=== PATIENT | female | born 1960 | race Caucasian/White ===

== ENCOUNTER 2020-01-17 12:54 | Emergency (ER) | payer MEDICARE, SELFPAY ==
--- NOTE | ~2020-01-17 | CT_ITS ---
EXAMINATION: CT abdomen pelvis w con DATE: 01/17/2020 15:45 INDICATION: Abdominal pain TECHNIQUE: Computed tomography (CT) of the abdomen and pelvis was performed with 100 mL Omnipaque-350 intravenous contrast. Automated exposure control and iterative reconstruction technique were employe d. The dose-length product was 1581.05 mGy-cm. COMPARISON: None FINDINGS: Discoid atelectasis at the bilateral lung bases. Borderline heart size. Atherosclerotic coronary dillon ry calcification. Ossified left hilar lymph nodes consistent with old granulomatous disease. Cholecys tectomy clips at the gallbladder fossa. Liver, spleen, pancreas, left adrenal gland and left kidney a re normal. There are couple small right adrenal nodules the larger measuring 2.0 cm macroscopic fat a ttenuation consistent with a myelolipoma. The smaller 1.7 cm nodule demonstrates soft tissue density statistically most likely to represent an adenoma. 7 mm macroscopic fat attenuation lesion at the rig ht kidney consistent with an angiomyolipoma. No evident urolithiasis. Bowels including the appendix a re normal. Small amount of gas within the vaginal vault as well as within the lower uterine segment. Additional small amount of gas within the otherwise normal bladder. No free intraperitoneal gas or fl uid. No pathologically enlarged abdominal or pelvic lymphadenopathy. Hypoplastic left-sided L1 riblet . Nondisplaced lateral left ninth rib fracture. There are few additional more chronic healed or heali ng bilateral anterior lower rib fractures. There are bridging osteophytes at multiple levels in the s pine, consistent with diffuse idiopathic skeletal hyperostosis (DISH). IMPRESSION: 1. Acute nondisplaced lateral left ninth rib fracture. 2. 2.0 cm and 1.7 cm right adrenal nodules the larger with macroscopic fat attenuation consistent wit h myelolipoma the second indeterminate but statistically most likely to represent an adenoma. 3. 6 mm right renal angiomyolipoma. Otherwise normal kidneys with no urolithiasis. 4. Small amount of gas in the bladder, vaginal vault and lower uterine segment. Correlate clinically for history of recent pelvic exam or sexual activity and for either Lemons catheterization or instrume ntation of the bladder. Reviewed, dictated and finalized at location A. SCALE WORKER IMPRESSION: 1. Acute nondisplaced lateral left ninth rib fracture. 2. 2.0 cm and 1.7 cm right adrenal nodules the larger with macroscopic fat atte nuation consistent with myelolipoma the second indeterminate but statistically most likely to represent an adenoma. 3. 6 mm right renal angiomyolipoma. Otherwise normal kidneys with no urolithias is. 4. Small amount of gas in the bladder, vaginal vault and lower uterine segment. Correlate clinically for history of recent pelvic exam or sexual activity and for either Lemons catheterization or instrumentation of the bladder.
--- NOTE | ~2020-01-17 | XR_ITS ---
EXAMINATION: [id number]_[id number] DATE: 01/17/2020 14:06 INDICATION: Left lower rib pain post fall TECHNIQUE: A frontal inspiratory view of the chest and 3 views of the left ribs were obtained. COMPARISON: None FINDINGS: There is an irregular contour to the anterior most aspect of the left 10th rib end of the lateral asp ect of the calcified costochondral cartilage of the eighth and ninth ribs. No definitive lucent fract ure line or sharply angulated cortex to more specifically suggest acute fracture. Remaining ribs are unremarkable. Linear discoid atelectasis/scarring at the bilateral lung bases. No pleural effusion or pneumothorax. Cardiomediastinal silhouette is normal. Cholecystectomy clips in right upper quadrant. Mild thoracic and mild to moderate upper lumbar spondylosis. IMPRESSION: 1. Irregular contour to the anterior left 10th rib end of the costochondral cartilage near the tips o f the anterior left eighth and ninth ribs. This could be either developmental or sequela of trauma ei ther acute or chronic. 2. Linear discoid atelectasis/scarring at the bilateral lung bases. No other acute cardiopulmonary di sease. Reviewed, dictated and finalized at location A. R CARRIER IMPRESSION: 1. Irregular contour to the anterior left 10th rib end of the costochondral car tilage near the tips of the anterior left eighth and ninth ribs. This could be either developmental or sequela of trauma either acute or chronic. 2. Linear discoid atelectasis/scarring at the bilateral lung bases. No other ac [place] cardiopulmonary disease.
--- NOTE | ~2020-01-17 | XR_ITS ---
EXAMINATION: XR wrist LT min 3V DATE: 01/17/2020 14:06 INDICATION: Left wrist injury. TECHNIQUE: 4 views of left wrist were obtained. COMPARISON: None. FINDINGS: Bone alignment is normal. There is an avulsion fracture of dorsal pole of triquetrum. There is mild osteoarthritis of triscaphe joint and first carpometacarpal joint. IMPRESSION: 1. Avulsion fracture of dorsal pole of triquetrum. 2. Polyarticular osteoarthritis. Reviewed, dictated and finalized at location B. E MASTER
[2020-01-17 12:57] VITALS: BP 150/77; PULSE 99; RESP 18; TEMP 36.2; O2SAT 93
--- NOTE | 2020-01-17 13:25 | ED.FALL ---
HPI - Fall General Chief Complaint: Fall Stated Complaint: fell on friday, arm and rib pain Time Seen by Provider: 01/17/20 13:04 Source: RN notes reviewed History of Present Illness HPI Narrative: Patient presents emergency department from home for a fall. Patient states she fell 2 days ago. She states that her foot had gotten tripped up and she fell landing on her left wrist and on her left side. She notes pain in her left ribs as well as her left wrist. She states she began to notice some blood in her urine yesterday that she says is bright red in color. She denies having fevers or chills shortness of breath abdominal pain nausea vomiting or any other symptoms denies being on any blood thinners. States her pain is in her left lateral wrist as well as her left anterior lateral chest she denies any bruising on her chest or abdomen denies any other injuries from the fall or striking her head Related Data Allergies Allergy/AdvReac Type Severity Reaction Status Date / Time No Known Allergies Allergy Verified 01/17/20 12:59 Review of Systems Review of Systems: Narrative: Gen.: Denies fevers or chills ENT: Denies congestion Respiratory: Denies shortness of breath or cough CV: Denies chest pain or palpitations GI: Denies abdominal pain nausea, emesis or diarrhea reports hematuria Musculoskeletal: See HPI Neuro: Denies numbness, tingling, weakness or focal weakness Skin: Denies rash Except as documented, all other systems reviewed and negative [facility] Past Medical History Medical History (Updated 01/17/20 @ 18:25 by Escobar Francisco DO) Diabetes mellitus Hypertension Social History Social History (Updated 01/17/20 @ 13:27 by Escobar Francisco DO) Smoking status: Never smoker Exam Narrative: Exam Narrative: APPEARANCE: No acute distress, nontoxic, resting in bed EYES: EOMI HEENT: Normocephalic, atraumatic, OMM RESPIRATORY: No respiratory distress Clear to auscultation bilaterally with no rhonchi wheezing or rales. CARDIOVASCULAR: Regular rate and rhythm without murmurs rubs or gallops. Chest: Tender palpation of the left anterior lateral chest wall in the regions of ribs 8 through 10, pain increased with deep inspiration no ecchymosis seen ABDOMINAL: Soft, nontender, nondistended, no rebound or guarding no flank tenderness MUSCULOSKELETAl: Moves all extremities. No clubbing, cyanosis or edema. Tender palpation of the left lateral wrist with swelling present pain with flexion extension of the wrist, no tenderness of the elbow or shoulder radial pulse 2+ neurovascular intact NEURO: Awake and alert. Following commands, speech normal, no focal deficits SKIN:: Warm, dry. No rashes lesions or abrasions PSYCHIATRIC: Normal affect/mood, Course Course Emergency Course: Discussed with patient following CT scan denies any recent catheterization or recent sexual activity Called discussed Dr. Mckinley presentation work-up discussed CT results. At this time recommends treating patient for UTI with follow-up as an outpatient Discussed with Dr. Martinez presentation work-up. Request patient placed in volar splint will follow as outpatient Discussed with patient results of workup and diagnosis. Discussed need for follow-up with primary care, proper use of medication, and reasons to return to the emergency department. Patient understands and agrees to current treatment plan Vital Signs Vital signs: Vital Signs Temperature 97.1 F L 01/17/20 12:57 Pulse Rate 99 01/17/20 12:57 Respiratory Rate 18 01/17/20 12:57 Blood Pressure 150/77 H 01/17/20 12:57 Pulse Oximetry 93 01/17/20 12:57 Temperature 97.1 F L 01/17/20 12:57 Pulse Rate 99 01/17/20 12:57 Respiratory Rate 18 01/17/20 12:57 Blood Pressure 150/77 H 01/17/20 12:57 Pulse Oximetry 93 01/17/20 12:57 Procedures Orthopedic Splinting/Casting Injury #1: Side: left Upper Extremity Immobilizer: volar splint Splint: customized i
[2020-01-17 13:50] LABS: Basophils Percent Auto 0.3 % (0.2-1.2); Eosinophils Absolute Auto 0.6 K/mm3 (0-0.3); Hematocrit 36.1 % (37.0-47.0); Immature Granulocyte Absolute 0.04 K/mm3 (0.00-0.031); Immature Granulocyte Percent A 0.5 % (0-0.5); Lymphocytes Absolute Auto 1.35 K/mm3 (0.9-3.2); Lymphocytes Percent Auto 15.7 % (18.3-44.2); Mean Corpuscular HGB Conc 30.5 g/dl (32-36); Mean Corpuscular Hemoglobin 30.1 pg (26-34); Mean Corpuscular Volume 98.6 fl (80-100); Mean Platelet Volume 12.3 fl (7.4-10.4); Monocytes Absolute Auto 0.9 K/mm3 (0.1-0.6); Monocytes Percent Auto 10.5 % (2.6-8.5); Neutrophils Absolute Auto 5.7 K/mm3 (1.3-6.7); Platelet Count Result 262 k/mm3 (150-375); Red Blood Count 3.66 M/mm3 (4.2-5.4); White Blood Count 8.6 K/mm3 (4.5-10.0)
[2020-01-17 13:59] LABS: Partial Thromboplastin Time 25.7 SECONDS (22.3-36.8); Prothrombin Time 13.6 Seconds (11.1-14.7)
[2020-01-17 14:02] LABS: Alanine Aminotransferase 20 U/L (4-35); Albumin Level 3.9 g/dL (3.5-5.1); Alkaline Phosphatase 73 U/L (38-126); Anion Gap 7 mmol/L (8-16); Aspartate Amino Transferase 20 U/L (14-36); Bilirubin,Total 0.3 mg/dL (0.2-1.3); Blood Urea Nitrogen 23 mg/dL (7-17); Calcium 9.4 mg/dL (8.4-10.2); Carbon Dioxide 31 mmol/L (22-30); Chloride 109 mmol/L (98-107); Estimated CRCL calculation 72 ml/min; Estimated Glomerular Filt Rate 51; Glucose 142 mg/dL (65-105); Potassium 4.2 mmol/L (3.4-5.0); Sodium 147 mmol/L (137-145)
[2020-01-17 14:28] LABS: Add Urine Microscopic? YES; Appearance Urine Cloudy (Clear); Bilirubin Urine Negative (Negative); Blood Urine 3+ (Negative); Color Urine Red (Yellow); Glucose Urine UA Negative (Negative); Ketones Urine Negative (Negative); Leukocyte Esterase Ur 2+ LEU/UL (Negative); Nitrate Urine Negative (Negative); Protein Urine 2+ mg/dL (Negative); RBC Urine >75 /hpf (0-2); Specific Grav Ur 1.018 (1.001-1.035); Squamous Epithelial Cell Urine Occasional /hpf (Few); Urobilinogen Urine Negative mg/dL (<2.0); WBC Urine >75 /hpf
[2020-01-17] MEDS: SODIUM CHLORIDE 0.9% IV 1,000 ML 999 ML IV CONT (15:28)
== END 2020-01-17 18:43 | disposition home or self-care (01) ==
PROVIDERS: Emergency Provider Emergency Medicine; PCP Internal Medicine
DX: S22.32XA Fracture of one rib, left side, initial encounter for closed fracture (principal); S62.112A Displaced fracture of triquetrum [cuneiform] bone, left wrist, initial encounter for closed fracture; N39.0 Urinary tract infection, site not specified; W01.0XXA Fall on same level from slipping, tripping and stumbling without subsequent striking against object, initial encounter
CPT/HCPCS: 29125; 36415; 71101; 73110; 74177; 80053; 81001; 85025; 85610; 85730; 87077; 87086; 87088; 87186; 96361; 96374; 99284; J0696; J7030; Q9967

== ENCOUNTER 2022-08-12 01:29 | Day surgery (SDC) | payer MEDICARE, SELFPAY ==
[2022-07-29 13:11] VITALS: BMI 49.8
[2022-08-12 06:27] VITALS: BP 152/78; PULSE 85; RESP 18; TEMP 36.4; O2SAT 96
[2022-08-12] MEDS: LACTATED RINGERS 1,000 ML 150 ML IV CONT (06:37)
--- NOTE | 2022-08-12 06:57 | PM.HPGS ---
History of Present Illness History of Present Illness Consent: Risks, benefits, and alternatives have been discussed and questions answered. Patient agrees to proceed with procedure. Chief complaint: neoplasm screening Narrative: Pankaj Keith is a 61 year old female Referred for colon cancer screening. Review of Systems Review of Systems: All systems reviewed & are unremarkable except as noted in HPI and below PMFSH Past Medical History Medical History BMI 50.0-59.9, adult Diabetes mellitus Fracture of left carpal bone Dorsal triquetrum avulsion fracture Gout Heart disease Hypertension Kidney disease Surgical History Surgical History H/O: section History of cholecystectomy Family History Family History Other Diabetes mellitus Heart disease Hypertension Social History Social History Smoking packs per day: 0.25 Smoking cigarettes per day: 5.0 Years smoked: 20 Smoking pack-years: 5.00 Smoking status: Former smoker Tobacco type: cigarettes Alcohol intake: never Alcohol use details: occasional Substance use: never Substance use type: does not use Living arrangements: with family Additional living arrangements comments: daughter lives with her Occupation/Education: retired Gender identity (if verbalized by the patient): Female Spiritual care concerns: No Meds Home Medications and Allergies Home Medications Medication Instructions Recorded Confirmed Type allopurinol 100 mg tablet 100 mg PO DAILY 01/27/20 07/29/22 History ascorbate calcium-bioflavonoid 1 tablet PO DAILY 01/27/20 07/29/22 History 1,000 mg-200 mg tablet aspirin 81 mg tablet,delayed 81 mg PO DAILY 01/27/20 07/29/22 History release (Adult Aspirin Regimen) citalopram 10 mg tablet 10 mg PO DAILY 01/27/20 07/29/22 History ferrous sulfate 325 mg (65 mg 325 mg PO DAILY 01/27/20 07/29/22 History iron) tablet,delayed release glipizide 10 mg tablet 10 mg PO DAILY 01/27/20 07/29/22 History insulin lispro 100 unit/mL 12 unit subcut TID 01/27/20 07/29/22 History subcutaneous cartridge (Humalog U-100 Insulin) metformin 500 mg tablet 500 mg PO DAILY 01/27/20 07/29/22 History olmesartan 20 mg tablet 20 mg PO DAILY 01/27/20 07/29/22 History pantoprazole 20 mg tablet,delayed 20 mg PO QAM 01/27/20 07/29/22 History release simvastatin 40 mg tablet 40 mg PO DAILY 01/27/20 07/29/22 History solifenacin 5 mg tablet 5 mg PO DAILY 01/27/20 07/29/22 History cholecalciferol (vitamin D3) 1,250 50,000 unit PO WEEKLY 07/29/22 07/29/22 History mcg (50,000 unit) capsule insulin glargine 100 unit/mL 85 unit subcut HS 07/29/22 07/29/22 History subcutaneous solution (Lantus U-100 Insulin) semaglutide 1 mg/dose (4 mg/3 mL) 1 mg subcut WEEKLY 07/29/22 07/29/22 History subcutaneous pen injector (Ozempic) Allergies Allergy/AdvReac Type Severity Reaction Status Date / Time No Known Allergies Allergy Verified 08/12/22 06:25 Vital Signs Vital Signs - 24 hr 08/12/22 06:27 Temperature 36.4 C Pulse Rate 85 Respiratory Rate 18 Blood Pressure 152/78 H Pulse Oximetry 96 Oxygen Delivery Room Air Exam Const: General: alert Orientation/consciousness: patient oriented x3 Resp: Auscultation: clear to auscultation bilaterally Cardio: Rhythm: regular rhythm GI: GI Palp: Yes Soft to palpation and No Tenderness to palpation present (GI) Neuro: General: patient oriented x3 Assessment and Plan Assessment and plan (1) Colon cancer screening: Code(s): Z12.11 - Encounter for screening for malignant neoplasm of colon Status: Acute Assessment and Plan: Colonoscopy with possible biopsy or polypectomy or cautery or injection of substances.
--- NOTE | 2022-08-12 07:01 | WPDANESEPPF ---
Anes - Initial Pre Proc Eval Procedure: Operation Date: 08/12/22 07:30 Proposed Procedures p Screening Colonoscopy - Marquez Talamantes MD Date/Time: 08/12/22 07:01 Surgeon: Marquez Talamantes MD Pre Op Diagnosis: neoplasm screening Patient Data Age: 61 Gender: F Height: 1.65 m Weight: 132.7 kg Last Vital Signs Temp 36.4 C 08/12/22 06:27 Pulse 85 08/12/22 06:27 Resp 18 08/12/22 06:27 BP 152/78 H 08/12/22 06:27 Pulse Ox 96 08/12/22 06:27 O2 Del Method Room Air 08/12/22 06:27 Allergies Allergy/AdvReac Type Severity Reaction Status Date / Time No Known Allergies Allergy Verified 08/12/22 06:25 Home Medications Medication Instructions Recorded Confirmed Type allopurinol 100 mg tablet 100 mg PO DAILY 01/27/20 07/29/22 History ascorbate calcium-bioflavonoid 1 tablet PO DAILY 01/27/20 07/29/22 History 1,000 mg-200 mg tablet aspirin 81 mg tablet,delayed 81 mg PO DAILY 01/27/20 07/29/22 History release (Adult Aspirin Regimen) citalopram 10 mg tablet 10 mg PO DAILY 01/27/20 07/29/22 History ferrous sulfate 325 mg (65 mg 325 mg PO DAILY 01/27/20 07/29/22 History iron) tablet,delayed release glipizide 10 mg tablet 10 mg PO DAILY 01/27/20 07/29/22 History insulin lispro 100 unit/mL 12 unit subcut TID 01/27/20 07/29/22 History subcutaneous cartridge (Humalog U-100 Insulin) metformin 500 mg tablet 500 mg PO DAILY 01/27/20 07/29/22 History olmesartan 20 mg tablet 20 mg PO DAILY 01/27/20 07/29/22 History pantoprazole 20 mg tablet,delayed 20 mg PO QAM 01/27/20 07/29/22 History release simvastatin 40 mg tablet 40 mg PO DAILY 01/27/20 07/29/22 History solifenacin 5 mg tablet 5 mg PO DAILY 01/27/20 07/29/22 History cholecalciferol (vitamin D3) 1,250 50,000 unit PO WEEKLY 07/29/22 07/29/22 History mcg (50,000 unit) capsule insulin glargine 100 unit/mL 85 unit subcut HS 07/29/22 07/29/22 History subcutaneous solution (Lantus U-100 Insulin) semaglutide 1 mg/dose (4 mg/3 mL) 1 mg subcut WEEKLY 07/29/22 07/29/22 History subcutaneous pen injector (Ozempic) Patient hx anesthesia problems: none Family hx anesthesia problems: none Results Review: All pre-operative results and documents have been reviewed as part of the pre-operative evaluation. [facility] Past Medical History Medical History BMI 50.0-59.9, adult Diabetes mellitus Fracture of left carpal bone Dorsal triquetrum avulsion fracture Gout Heart disease Hypertension Kidney disease Surgical History Surgical History H/O: section History of cholecystectomy Family History Family History Other Diabetes mellitus Heart disease Hypertension Social History Social History Smoking packs per day: 0.25 Smoking cigarettes per day: 5.0 Years smoked: 20 Smoking pack-years: 5.00 Smoking status: Former smoker Tobacco type: cigarettes Alcohol intake: never Alcohol use details: occasional Substance use: never Substance use type: does not use Living arrangements: with family Additional living arrangements comments: daughter lives with her Occupation/Education: retired Gender identity (if verbalized by the patient): Female Spiritual care concerns: No Anes - Eval Final PreProcedure Day of Procedure 08/12/22 07:01 Patient weight: morbidly obese Heart: regular rate and rhythm Lungs: clear to auscultation Airway: Mallampati scale class II Neurological: alert and oriented Last oral intake: >/= 8 hours ASA classification: III Emergent: no Anesthetic plan: proceed Anesthesia type and monitoring: general GIVS and standard monitoring Results Review: All pre-operative results and documents have been reviewed as part of the pre-operative evaluation. Inform
[2022-08-12 07:12] LABS: Glucose Point of Care 97 mg/dl (65-105)
[2022-08-12 07:44] VITALS: BP 105/56; PULSE 76; RESP 20; O2SAT 95
[2022-08-12 07:54] VITALS: BP 121/94; PULSE 71; RESP 20; O2SAT 95
[2022-08-12 07:58] LABS: Glucose Point of Care 95 mg/dl (65-105)
[2022-08-12 08:04] VITALS: BP 127/75; PULSE 68; RESP 22; O2SAT 97
== END 2022-08-12 08:25 | disposition home or self-care (01) ==
PROVIDERS: PCP Internal Medicine; Visit Provider Internal Medicine Gastroenterology
PROC: 0DJD8ZZ Inspection of Lower Intestinal Tract, Via Natural or Artificial Opening Endoscopic (ICD-10-PCS; CPT 45378; principal; 2022-08-12 07:30)
DX: Z12.11 Encounter for screening for malignant neoplasm of colon (principal); K57.30 Diverticulosis of large intestine without perforation or abscess without bleeding; E11.9 Type 2 diabetes mellitus without complications; I11.9 Hypertensive heart disease without heart failure; M10.9 Gout, unspecified; Z87.891 Personal history of nicotine dependence; E66.01 Morbid (severe) obesity due to excess calories; Z68.42 Body mass index [BMI] 45.0-49.9, adult; Z79.84 Long term (current) use of oral hypoglycemic drugs; Z79.4 Long term (current) use of insulin; Z79.899 Other long term (current) drug therapy
CPT/HCPCS: G0121; 82948; J2704; J7120

== ENCOUNTER 2024-04-12 09:43 | Outpatient (CLI) | payer MEDICARE, SELFPAY ==
--- NOTE | ~2024-04-12 | DEXA_ITS ---
Bone Density Report Name: KRISTA CUMMINGS Age: 63 Sex: Female Ethnicity: White Date of : 1960 Indication: postmenopausal; screening for osteoporosis; Referring Provider: VALENCIA, OCTAVIA Mcdonnell Study: Bone densitometry was performed. Exam Date: April 12, 2024 Accession number: [id number] Bone Density: Region BMD T-score Z-score Classification AP Spine(L1, L2, L4) 1.181 1.3 3.1 Normal Femoral Neck (Left) 0.734 -1.0 0.4 Normal Total Hip (Left) 0.984 0.3 1.5 Normal Femoral Neck (Right) 0.818 -0.3 1.2 Normal Total Hip (Right) 1.028 0.7 1.9 Normal Femoral Neck Mean 0.776 -0.7 0.8 Normal Total Hip Mean 1.006 0.5 1.7 Normal World Health Organization criteria for BMD impression classify patients as: Normal (T-score at or above -1.0), Osteopenia (T-score between -1.0 and -2.5), or Osteoporosis (T-score at or below -2.5). Clinical Information Provided by Patient: Has used the following medications: Vitamin D, Calcium Patient maximum height was 64 Menopause Age: 49 No regular weight bearing exercise Onset of menses at age 11 Number of children 2 Impression: The patient has normal bone mass. Discussion: BONE DENSITY IS ABOVE THE MINIMUM DESIRABLE LEVEL AT ALL SKELETAL SITES TESTED. This patient?s bone mineral density is above the minimum desirable level (T-score -1.0 or better) at all sites measured. The patient should follow a healthful lifestyle (good nutrition with adequate calcium and vitamin D, and appropriate weight-bearing exercise). Follow-Up: Consider repeating this study in 5 years or sooner if there is some new clinical indication. Reported by: AMOS on 04/12/2024 10:23:00 AM. Reviewed, dictated and finalized at location A.
--- OUTSIDE RECORDS SUMMARY | 2024-04-12 10:22 | XMS_ITS | CONTINUITY OF CARE DOCUMENT ---
Author Name braxton limon Address Unknown Organization [facility] Address [address] [place] [address] Phone [phone] Care Team Providers Care Dock Clerk Name Role Phone Faheem MCCAIN, Tj Unavailable [phone] Edwardo Murillo MD Unavailable Edwardo Murillo MD Unavailable PROBLEMS Condition Status Date Provider Notes DIABETES MELLITUS active Katlyn Wills t ANEMIA active - Lionel Morales MD HYPERCHOLESTEROLEMIA completed - Tj Mayen MD OBESITY active Tj Mayen MD HTN ESSENTIAL--stress nuc fi xed inf lat defect 09/2020, echo ef 62%, LVH, calcified arotic valve, 07/2020 active Tj Mayen MD DIASTOLIC CHF active Lionel Morales MD PANCREATITIS active Lionel Morales MD PICKWICKIAN SYNDROME active Lionel Mendez SLEEP APNEA;ON CPAP active Lionel Morales MD COR PULMONALE;NITE TIME 02, uses CPAP completed - Tj Mayen MD ABNORMAL ELECTROCARDIOGRAM;W ILL NUC STRESS completed - Lionel Morales MD PULMONARY HYPERTENSION, SECONDARY;NOT SEEN 2009 completed - Tj Mayen MD CAD;NML NUC 2009 completed - Tj Mayen MD Hyperlipidemia active Tj Mayen MD Chronic kidney disease stage 3, follows with MABEL Mayen active Tj Light pulmonale, chronic active Tj Mayen MD Cardiovascular screening completed - Tj Mayen MD SOB active Tj Myaen MD Cardiology examination active Leonardo Mora ENCOUNTERS Date Type Provider Location Encounter Diag nosis - In-person encounter Office Visit Tj Mayen MD [facility] Cardiology examination - In-person encounter Office Visit Tj Mayen MD [facility] - In-person encounter Office Visit Tj Mayen MD [facility] - In-person encounter Office Visit Tj Mayen MD [facility] - In-person encounter Office Visit Tj Mayen MD [facility] - In-person encounter Office Visit Tj Mayen MD [facility] HTN ESSENTIAL--stress nuc fixed inf lat defect 09/2020, echo ef 62%, LVH, calcified arotic valve, ardiovascular screening - In-person encounter Office Visit Tj Mayen MD [facility] SOB - In-person encounter Office Visit T[facility] - In-person encounter Office Visit Tj Mayen MD [facility] - In-person encounter Office Visit Tj Mayen MD [facility] - In-person encounter Office Visit Tj Mayen MD [facility] - In-person encounter Office Visit Tj Mayen MD [facility] COR PULMONALE;NITE TIME 02, uses CPAPChronic kidney disease stage 3, follows with MABEL gonzales, chronic - In-person encounter Office Visit Tj Mayen MD [facility] HYPERCHOLESTEROLEMIAHyperlipidemia - In-person encounter Office Visit Tj Mayen MD [facility] OBESITYHTN ESSENTIAL--stress nuc fixed inf lat defect 09/2020, echo ef 62%, LVH, calcified arotic valve, ULMONARY HYPERTENSION, SECONDARY;NOT SEEN 2009CAD;NML NUC 2009 - In-person encounter Office Visit Lionel Morales MD [facility] OBESITYHTN ESSENTIAL--stress nuc fixed inf lat defect 09/2020, echo ef 62%, LVH, calcified arotic valve, IASTOLIC CHFCOR PULMONALE;NITE TIME 02, uses CPAPABNORMAL ELECTROCARDIOGRAM;WILL NUC STRESS - In-person encounter Office Visit Lionel Morales MD [facility] ANEMIAHYPERCHOLESTEROLEMIADIASTOLIC CHFPANCREATITISPICKWICKIAN SYNDROMESLEEP APNEA;ON CPAPCOR PULMONALE;NITE TIME 02, uses CPAPPULMONARY HYPERTENSION, SECONDARY;NOT SEEN 2009 VITAL SIGNS Date Observation Value Provider Body Mass Index (Ratio) 42.60 kg/m2 Dez Mayen MD blood pressure, diastolic 64 mm[Hg] Loretta nkLog blood pressure, systolic 114 mm[Hg] Katherin kLog blood pressure, cuff size large Jose L Adams blood pressure, diastolic 64 mm[Hg] Jose L bitcam Adams blood pressure, systolic 114 mm[Hg] Tab itha Adams pulse rate 97 /min Guadalupe Adams oxygen saturation, oximetry 97 % Guadalupe Bryan weight E&M 256 [lb_av] Guadalupe Adams respiratory rate E&M 12 /min Guadalupe Adams height E&M 65 [in_i] Guadalupe Bryan Body Mass Index (Ratio) 45.26 kg/m2 Dez Mayen MD blood pressure, cuff size regular Fa zane [place] blood pressure, diastolic 75 mm[Hg] Pb degroot [place] blood pressure, systolic 130 mm[Hg] Aaron adamson [place] oxygen saturation, oximetry 97 % Tracy [place] respiratory rate E&M 16 /min Tracy Martinez iller pulse rate 99 /min Tracy [place] weight E&M 272 [lb_av] [facility] height E&M 65 [in_i] [facility] Body Mass Index (Ratio) 49.42 kg/m2 Dez Mayen MD pulse rate 97 /min Kamla Perez blood pressure, diastolic 83 mm[Hg] Annie suyapa Perez blood pressure, systolic 152 mm[Hg] Bri rufus Perez oxygen saturation, oximetry 97 % Kamla Perez weight E&M 297 [lb_av] Kamla Perez blood pressure, cuff size large Annie suyapa Perez height E&M 65 [in_i] Kamla Perez Body Mass Index (Ratio) 53.38 kg/m2 Dez Mayen MD blood pressure, diastolic 71 mm[Hg] St flako Edmondson blood pressure, systolic 183 mm[Hg] Emilia Edmondson oxygen saturation, oximetry 93 % Shira Edmondson pulse rate 87 /min Shirajaney Edmondson respiratory rate E&M 16 /min Shira Mendez santana weight E&M 320.8 [lb_av] Shirajaney Edmondson height E&M 65 [in_i] Shirajaney Edmondson Body Mass Index (Ratio) 53.74 kg/m2 Dez Mayen MD blood pressure, diastolic 74 mm[Hg] Loretta nkLogic blood pressure, systolic 146 mm[Hg] Katherin kLogic blood pressure, diastolic 74 mm[Hg] Sa ra Kendrick blood pressure, systolic 146 mm[Hg] North a Kend[place] oxygen saturation, oximetry 96 % Gali Kend[place] respiratory rate E&M 18 /min Gali Si ms pulse rate 85 /min Gali [place] weight E&M 323 [lb_av] Gali Kendrick blood pressure, cuff size regular Sa ra [place] height E&M 65 [in_i] Gali Kendrick Body Mass Index (Ratio) 53.91 kg/m2 Dez Mayen MD blood pressure, cuff size regular Tr yenifer Lema blood pressure, diastolic 70 mm[Hg] Tr ynett Lema blood pressure, systolic 140 mm[Hg] Try nett Lema oxygen saturation, oximetry 95 % Trynett Lema respiratory rate E&M 18 /min Trynett Lema pulse rate 105 /min Trynett Lema weight E&M 324 [lb_av] Trynett Lema height E&M 65 [in_i] Trynett Lema Body Mass Index (Ratio) 54.74 kg/m2 Dez Mayen MD blood pressure, diastolic 80 mm[Hg] Loretta nkLogic blood pressure, systolic 140 mm[Hg] Katherin kLogic blood pressure, diastolic 80 mm[Hg] erkeitha Sixto blood pressure, systolic 140 mm[Hg] She eitcam [place] oxygen saturation, oximetry 95 % Shergina Sixto respiratory rate E&M 18 /min Madie brandi Henson pulse rate 84 /min Shergina Tom patel weight E&M 329 [lb_av] Shergina Craw patel height E&M 65 [in_i] Shermaggieitha Craw patel Body Mass Index (Ratio) 56.41 kg/m2 Dez Mayen MD blood pressure, diastolic 70 mm[Hg] Solitario Germain blood pressure, systolic 140 mm[Hg] Dylan Germain pulse rate 83 /min Olinda Zuniga oxygen saturation, oximetry 97 % Olinda Zuniga respiratory rate E&M 20 /min Olinda Marcellus blood pressure, cuff size regular Solitario Zuniga weight E&M 339 [lb_av] Olinda height E&M 65 [in_i] [facility] Body Mass Index (Ratio) 52.98 kg/m2 Dez Mayen MD blood pressure, diastolic 70 mm[Hg] [facility] blood pressure, systolic 132 mm[Hg] Flako jiménez [place] oxygen saturation, oximetry 93 % [facility] respiratory rate E&M 16 /min [facility] pulse rate 75 /[facility] [lb_av] [facility] 65 [in_i] [facility] Body Mass Index (Ratio) 53.74 kg/m2 Dez Mayen MD blood pressure, resting Yes Gillian Guan blood pressure, diastolic 77 mm[Hg] Ean Guan blood pressure, systolic 145 mm[Hg] Adina Guan oxygen saturation, oximetry 93 % Abhinav Guan respiratory rate E&M 20 /min Dave Guan pulse rate 72 /min Abhinav portillo weight E&M 323.0 [lb_av] Abhinav nevarez height E&M 65 [in_i] Abhinav portillo Body Mass Index (Ratio) 52.58 kg/m2 Dez Mayen MD blood pressure, cuff size large Ke rrzenobia Manriqueemiholleyfransisco blood pressure, diastolic 80 mm[Hg] Ke rri Osmanholleyfransisco blood pressure, systolic 130 mm[Hg] Samira Palaciosvanessaholleyfransisco oxygen saturation, oximetry 93 % Albertina Palaciosruthamparofransisco respiratory rate E&M 18 /min Albertina Moe santy pulse rate 84 /min Albertina Brewerholleypreston pilloer weight E&M 316 [lb_av] Albertina Brewerholleypreston pilloer height E&M 65 [in_i] Albertina Galindo ferro blood pressure, diastolic 58 mm[Hg] Ean Guan blood pressure, systolic 113 mm[Hg] Adina Guan pulse rate 72 /min Abhinav portillo oxygen saturation, oximetry 97 % Abhinav Guan respiratory rate E&M 18 /min Dave Guan Body Mass Index (Ratio) 54.58 kg/m2 ManjulaGloria Guan weight E&M 328 [lb_av] Abhinav Macedo bandar blood pressure, diastolic 72 mm[Hg] Omero Whalen blood pressure, systolic 126 mm[Hg] Darinel Whalen pulse rate 78 /min Callie Whalen oxygen saturation, oximetry 97 % Callie Whalen respiratory rate E&M 18 /min Chin Whalen weight E&M 358 [lb_av] Callie Whalen blood pressure, diastolic 74 mm[Hg] Kelin dasia [place] blood pressure, systolic 122 mm[Hg] Curtis woo [place] pulse rate 91 /min Venkata [place] oxygen saturation, oximetry 94 % Venkata [place] respiratory rate E&M 20 /min Venkata Mcgillerasmo weight E&M 339 [lb_av] [facility] height E&M 65 [in_i] Venkata Mcgillerasmo ALLERGIES No Known Drug Allergies HISTORY OF MEDICATION USE Medication Status Instructions Dates Provider Indications Com ments losartan 50 mg tablet active TAKE 1 TABLET BY MOUTH EVERY DAY Leonardo Huntleyzazenobia Ozempic 2 mg/dose (8 mg/3 mL) pen injector active Leonardo Huntleyzazenobia Ozempic 1 mg/dose (4 mg/3 mL) pen injector completed INJECT 1 MG SUBCUTAINOUSLY EVERY 7 DAYS - Leonardo Matthewzenobia glipizide 10 mg tablet extended release 24hr completed TAKE 1 TABLET BY MOUTH ONCE DAILY - Leonardo Johnlong TRUEplus Insulin 1 mL 31 gauge x 5/16 syringe active Leonardo Mora losartan 50 mg tablet completed - Leonardo Johnlong oxybutynin chloride 10 mg tablet extended release 24hr active Leonardo Matthewzenobia citalopram 10 mg tablet active Take 1 tablet by mouth once daily Albertina Stiles Farxiga 10 mg tablet active 1 once a day Vern Henson BYDUREON 2 MG SUBCUTANEOUS SUSPENSION RECONSTITUTED ER completed Take once a week - Leonardo Johnlong calcitriol 0.25 mcg capsule active Take 1 once a day Albertina Stiles allopurinol 100 mg tablet active Take 1 once a day Albertina Stiles citalopram 10 mg tablet completed once daily - Abhinav Guan pantoprazole 20 mg tablet,delayed release (DR/EC) active once a day Abhinav Guan CALCIUM TABLET completed 1000 mg once a day - Leonardo Mora ASPIRIN 81 MG ORAL TABLET active 1 tablet once a day Abhinav Guan PROVENTIL HFA AEROSOL SOLUTION completed 2 puffs by mouth three times daily - Lionel Morales MD ADVAIR DISKUS 250-50 MCG/DOSE INHALATION AEROSOL POWDER BREATH ACTIVATED completed twice daily - Olinda Germain ALBUTEROL SULFATE (2.5 MG/3ML) 0.083% INHALATION NEBULIZATION SOLUTION completed every 4 hours - Lionel Morales MD IPRATROPIUM BROMIDE SOLUTION completed every 4 hours - Lionel Morales MD LANTUS SOLUTION active 60 unit every night Leonardo Mora HUMALOG SOLUTION active 1 once a day Olinda Germain RANITIDINE HCL 300 MG ORAL TABLET completed 1 tablet by mouth twice daily - Albertina Stiles FUROSEMIDE 40 MG ORAL TABLET completed 1/2 pill a day - Tj Mayen MD STARLIX 120 MG ORAL TABLET completed 1 tablet by mouth three times daily - Abhinav Guan B-12 TABS completed 1000mg 1tablet by mouth twice daily - Linda Sy Zocor 40 mg tablet active 1 tablet every night Alisia Lema METFORMIN HCL 500 MG ORAL TABLET completed 2 tablets by mouth in the morning and 3 tablet in the eveing - Albertina Stiles glipizide 10 mg tablet completed 1 tablet by mouth once a day - Leonardo Mora FERROUS SULFATE TABLET completed - Venkata Manerasmo Benicar 20 mg tablet completed 1 tablet once a day - Tj Mayen MD SOCIAL HISTORY Date Observation Value Provider alcohol use no Leonardo Mora cigarette use yes Leonardo Mora smoking status Former smoker Leonardo Castro i smoking status Former smoker Tracy Adams social history reviewed E&M revi ewed - no changes required Leonardo Mora physical exercise, f requency, days per week no Kamla Perez caffeine use, averag e drinks per day yes Kamla Perez cigarette use yes Kamla Perez smoking status Former smoker Kamla beckford social history reviewed E&M revi ewed - no changes required Leonardo Mora social history E&M Marital Statu s: L isaias with family/friends E thnicity: Smoking History: P cindi is a former smoker. Leonardo Mora physical exercise, f requency, days per week no Shira Delvis caffeine use, averag e drinks per day yes Shirajaney Edmondson cigarette use yes Shirajaney Edmondson smoking status Former smoker Shira Delvis social history reviewed E&M revi ewed - no changes required Leonardo Mora social history reviewed E&M revi ewed - no changes required Tj Mayen MD cigarette use yes Alisia Espinosamahnaz s smoking status Former smoker Alisia Espinosakingsley rds social history reviewed E&M revi ewed - no changes required Leonardo Mora social history reviewed E&M revi ewed - no changes required Leonadro Mora physical exercise, f requency, days per week no Vern Henson caffeine use, averag e drinks per day yes Vern Henson cigarette use yes Robmaggieeddie davis smoking status Former smoker Vern Marleen suggs social history E&M Marital Statu s: L isaias with family/friends E thnicity: Smoking History: Luiz puente is a former smoker. Tj Mayen MD physical exercise, f requency, days per week no Tj Mayen MD caffeine use, averag e drinks per day yes Tj Mayen MD cigarette use yes Tj Mendez smoking status Former smoker Tj Mayen MD social history reviewed E&M revi ewed - no changes required Tj Mayen MD social history reviewed E&M revi ewed - no changes required Tj Mayen MD social history E&M Marital Statu s: L isaias with family/friends E thnicity: Smoking History: P cindi is a former smoker. Tj Mayen MD physical exercise, f requency, days per week no Olinda Marcellus alcohol use, average drinks per day none Olinda Marcellus alcohol use no Olinda [place] caffeine use, averag e drinks per day yes Olinda Marcellus cigarette use yes Olinda Marcellus smoking status Former smoker Olinda Marcellus social history reviewed E&M revi ewed - no changes required Tj Mayen MD social history E&M Marital Statu s: L isaias with family/friends E thnicity: Smoking History: Luiz puente is a former smoker. Tj Mayen MD number of grandchildren Tj Mayen MD [facility] smoking status Former [facility]oker [facility] physical exercise, f requency, days per week no Linda Sy alcohol use, average drinks per day none [place] Sy alcohol use no [place] Sy caffeine use, averag e drinks per day yes Linda Sy cigarette use yes [place] Sy social history reviewed E&M revi ewed - no changes required Tj Mayen MD physical exercise, f requency, days per week no Abhinav Guan alcohol use, average drinks per day none Abhinav Guan alcohol use no Abhinav [place] caffeine use, averag e drinks per day yes Abhinav Guan cigarette use yes Abhinav nevarez smoking status Former smoker Abhinav St cantu social history reviewed E&M revi ewed - no changes required Tj Mayen MD alcohol use no Albertina kat physical exercise, f requency, days per week no Albertina Stiles alcohol use, average drinks per day none Albertina Lopezer caffeine use, averag e drinks per day yes Albertina Stiles cigarette use yes Albertina moody smoking status Former smoker Albertina talleyer cigarette use yes Abhinav nevarez physical exercise, f requency, days per week no Abhinav Guan alcohol use, average drinks per day none Abhinav Guan caffeine use, averag e drinks per day yes Abhinav Guan smoking status Former smoker Abhinav Laughlin social history reviewed E&M revi concepción - no changes required Tj Mayen MD quit smoking, stage quit Lionel vyas MD social history reviewed E&M reviewed Lionel Morales MD social history E&M Marital Statu s: L isaias with family/friends E thnicity: Lionel Morales MD social history reviewed E&M reviewed Lionel Morales MD physical exercise, f requency, days per week no [facility] caffeine use, averag e drinks per day yes Link[facility] alcohol use, average drinks per day none LinkLog smoking status Quit [facility] MENTAL STATUS Date Observation Value Provider assessment of judgme nt and insight E&M Alert and oriented to time, place and person. Mood and affect are normal. Lionel Morales MD assessment of judgme nt and insight E&M Alert and oriented to time, place and person. Mood and affect are normal. Lionel Morales MD FAMILY HISTORY Family Member Condition Full Sister Family History of Di abetes: Father Family History of Di abetes: Mother Family History of Co ronary Artery Disease: Mother Family History of Di abetes: INSURANCE PROVIDERS Payer name Policy type / Coverage type [place] red democrat ID [employer] MEDICARE ADVANTAGE HMO-POS HMO [id number] ADVANCE DIRECTIVES Name Date DISCUSSED - NO DECISION MADE TREATMENT PLAN Date Name Performer [id number],S, Leonardo Ahmedza i [id number],S, Leonardo Ahmedza i [id number],S, Leonardo Ahmedza i [id number],S, Leonardo Ahmedza i [id number],S, Leonardo Ahmedza i [id number],S, Leonardo Ahmedza i [id number],S, Leonardo Ahmedza i [id number],S, Leonardo Ahmedza i [id number],S, Leonardo Ahmedza i [id number],S, Leonardo Ahmedza i [id number],S, Leonardo Ahmedza i [id number],S, Leonardo Ahmedza i [id number],S, Leonardo Ahmedza i [id number],S, Leonardo Ahmedza i [id number],S, Leonardo Ahmedza i [id number],S, Leonardo Ahmedza i [id number],S, Leonardo Ahmedza i [id number],S, Leonardo Ahmedza i [id number],S, Shania Barnard obsmeyer [id number],S, Shania Barnard obsmeyer [id number],S, Shania Barnard obsmeyer [id number],S, Shania Barnard obsmeyer [id number],S, Shania Barnard obsmeyer [id number],S, Leonardo Ahmedza i [id number],S, Leonardo Ahmedza i [id number],S, Leonardo Ahmedza i [id number],B, Leonardo Ahmedza i [id number],S, Leonardo Ahmedza i [id number],S, Leonardo Ahmedza i [id number],S, Leonardo Ahmedza i [id number],S, Leonardo Ahmedza i [id number],S, Leonardo Ahmedza i [id number],S, Leonardo Ahmedza i [id number],S, Leonardo Ahmedza i Cardiology Leonardo Ahmedzai Cardiology Leonardo Ahmedzai Cardiology Leonardo Ahmedzai Cardiology: H er updated medication list for this problem includes: Losartan 100 Mg Tablet (Losartan) Leonardo Ahmedzai Cardiology: H er updated medication list for this problem includes: Ozempic 2 Mg/dose (8 Mg/3 Ml) Pen Injector (Semaglutide) Losartan 100 Mg Tablet (Losartan) Farxiga 10 Mg Tablet (Dapagliflozin) ..... 1 once a day Leonardo Ahmedzai Cardiology: H er updated medication list for this problem includes: Losartan 100 Mg Tablet (Losartan) Leonardo Ahmedzai Cardiology Leonardo Ahmedzai Cardiology Leonardo Ahmedzai Cardiology Leonardo Ahmedzai Cardiology Leonardo Ahmedzai Cardiology Leonardo Ahmedzai Cardiology Leonardo Ahmedzai Cardiology Leonardo Ahmedzai Cardiology Leonardo Ahmedzai Cardiology Leonardo Ahmedzai Cardiology Leonardo Ahmedzai Cardiology Leonardo Ahmedzai Cardiology Leonardo Ahmedzai Cardiology Leonardo Ahmedzai Cardiology Leonardo Ahmedzai Cardiology Leonardo Ahmedzai Cardiology Leonardo Ahmedzai Cardiology Leonardo Ahmedzai Cardiology Leonardo Ahmedzai Cardiology Shania [place] Cardiology Shania [place] Cardiology Shania [place] Cardiology Shania [place] [facility]iology Shania [place] Cardiology Leonardo Ahmedzai Cardiology Leonardo Ahmedzai Cardiology Leonardo Ahmedzai Cardiology Leonardo Ahmedzai Cardiology Leonardo Ahmedzai Cardiology Leonardo Ahmedzai Cardiology Leonardo Ahmedzai Cardiology Leonardo Ahmedzai Cardiology Leonardo Ahmedzai Cardiology Leonardo Ahmedzai Cardiology Leonardo Ahmedzai Telehealth pls schedule 6 m in o ffice f/up Tj Mayen MD Telehealth pls schedule 6 m in o ffice f/up Tj Mayen MD Telehealth pls schedule 6 m in o ffice f/up Tj Mayen MD Telehealth pls schedule 6 m in o ffice f/up Tj Mayen MD TeleHealth 1 year f/u Tj nicholas MD TeleHealth 1 year f/u Toniya Sin gh TeleHealth 1 year f/u Toniya Sin gh TeleHealth 1 year f/u Toniya Sin gh Cardiology Tj Mayen MD Cardiology Tj Mayen MD Cardiology Tj Mayen MD Cardiology Tj Mayen MD Cardiology Tj Mayen MD Cardiology Tj Mayen MD Cardiology Tj Mayen MD Cardiology Tj Mayen MD Cardiology Tj Mayen MD Cardiology Tj Mayen MD Cardiology [place] Mayen MD Cardiology [place] Mayen MD Cardiology Follow u p Toniya Sin gh Cardiology Follow u p Toniya Sin gh Cardiology Follow u p Toniya Sin gh Cardiology Follow u p Toniya Sin gh Cardiology Follow u p Toniya Sin gh Cardiology Follow u p Toniya Sin gh Cardiology Follow u p Toniya Sin gh Cardiology Tj Mayen MD Cardiology Tj Mayen MD Cardiology Tj Mayen MD Cardiology Tj Mayen MD Cardiology Tj Mayen MD yrly F/u: H er updated medication list for this problem includes: Zocor 40 Mg Tabs (Simvastatin) ..... One tab. at bedtime Lionel Morales MD yrly F/u: H er updated medication list for this problem includes: Benicar 20 Mg Tabs (Olmesartan medoxomil) ..... One tab. daily Glipizide 10 Mg Tabs (Glipizide) ..... 1 tablet by mouth daily Metformin Hcl 500 Mg Tabs (Metformin hcl) ..... 2 tablets by mouth in the morning and 3 tablet in the eveing Starlix 120 Mg Tabs (Nateglinide) ..... 1 tablet by mouth three times daily Novolog Penfill 100 Unit/ml Soln (Insulin aspart) ..... 10 units of injection twice daily Levemir 100 Unit/ml Soln (Insulin detemir) ..... 25 units of ijnection at bedtime Lionel Morales MD yrly F/u Lionel Morales MD yrly F/u Lionel Morales MD yrly F/u: O rders: S pirometry (CPT-71280) Lionel Morales MD yrly F/u: H er updated medication list for this problem includes: Zocor 40 Mg Tabs (Simvastatin) ..... One tab. at bedtime Lionel Morales MD yrly F/u Lionel Morales MD yrly F/u: O rders: S pirometry (CPT-11158) Lionel Morales MD yrly F/u: H er updated medication list for this problem includes: Benicar 20 Mg Tabs (Olmesartan medoxomil) ..... One tab. daily Furosemide 40 Mg Tabs (Furosemide) ..... 1 tablet by mouth daily Lionel Morales MD yrly F/u: H er updated medication list for this problem includes: Benicar 20 Mg Tabs (Olmesartan medoxomil) ..... One tab. daily Furosemide 40 Mg Tabs (Furosemide) ..... 1 tablet by mouth daily Lionel Morales MD yrly F/u Lionel Morales MD abnormal ekg will smiley : H er updated medication list for this problem includes: Benicar 20 Mg Tabs (Olmesartan medoxomil) ..... One tab. daily Glipizide 10 Mg Tabs (Glipizide) ..... 1 tablet by mouth daily Metformin Hcl 500 Mg Tabs (Metformin hcl) ..... 2 tablets by mouth in the morning and 3 tablet in the eveing Starlix 120 Mg Tabs (Nateglinide) ..... 1 tablet by mouth three times daily Novolog Penfill 100 Unit/ml Soln (Insulin aspart) ..... 10 units of injection twice daily Levemir 100 Unit/ml Soln (Insulin detemir) ..... 25 units of ijnection at bedtime BP today: 122/74 Prior BP: / () Lionel Morales MD abnormal ekg will baljit anderson MD abnormal ekg will smiely : H er updated medication list for this problem includes: Benicar 20 Mg Tabs (Olmesartan medoxomil) ..... One tab. daily Furosemide 40 Mg Tabs (Furosemide) ..... 1 tablet by mouth daily BP today: 122/74 Lionel Morales MD abnormal ekg will smiley : H er updated medication list for this problem includes: Furosemide 40 Mg Tabs (Furosemide) ..... 1 tablet by mouth daily BP today: 122/74 Prior BP: / () Lionel Morales MD abnormal ekg will smiley Lionel anderson MD abnormal ekg will baljit anderson MD abnormal ekg will baljit anderson MD abnormal ekg will baljit anderson MD abnormal ekg will smiley : H er updated medication list for this problem includes: Benicar 20 Mg Tabs (Olmesartan medoxomil) ..... One tab. daily Furosemide 40 Mg Tabs (Furosemide) ..... 1 tablet by mouth daily Orders: E KG (CPT-28339) BP today: 122/74 Prior BP: / () Lionel Morales MD abnormal ekg will smiley : H er updated medication list for this problem includes: Zocor 40 Mg Tabs (Simvastatin) ..... One tab. at bedtime BP today: 122/74 Prior BP: / () Lionel Morales MD Date Name Stress Regadenoson Spirometry Stress Test - Adenos ine Complete Echo HISTORY OF PROCEDURES Procedure Date Procedure Name Provider Procedure Notes S tatus Complex e/m visit add on Tj Mayen MD completed EKG Tj Mayen MD completed EKG Tj Mayen MD completed EKG Tj Mayen MD completed EKG Tj Mayen MD completed Schedule Followup Tj Mayen MD in 1 yr co mpleted EKG Tj Mayen MD completed EKG Tj Mayen MD completed SNOMED-CT: [id number] Current Medications Documented Tj Mayen MD completed SNOMED-CT: [id number] Physical Exam, Performed: Pulse Exam of Foot Tj Mayen MD completed SNOMED-CT: [id number] Current Medications Documented Tj Mayen MD completed SNOMED-CT: [id number] Physical Exam, Performed: Pulse Exam of Foot Tj Mayen MD completed EKG Tj Mayen MD completed SNOMED-CT: [id number] Current Medications Documented Tj Mayen MD completed SNOMED-CT: [id number] Physical Exam, Performed: Pulse Exam of Foot Tj Mayen MD completed SNOMED-CT: [id number] Current Medications Documented Tj Mayen MD completed Stress EKG Tj Mayen MD completed Regadenoson, 4 units Tj Mayen MD completed Cardiolite, 2 units Tj Mayen MD completed SPECT Images Tj Mayen MD complet ed EKG Lionel Morales MD complete d EKG Lionel Morales MD complete d
--- OUTSIDE RECORDS SUMMARY | 2024-04-12 10:22 | XMS_ITS | Data Portability ---
Author Organization [place] [facility] [employer], Main Office Address [address] [place] [address] Care Team Providers Care Gas Leak Tester Name Role Phone SOFIE BIRMINGHAMINDER Primary Care Provider [phone] Assessment Encounter Date Assessment Date Assessment LastModified by Organization Details LastModified Time 07/23/2023 07/23/2023 Assessment: Very severe OSAHS, AHI = 160 Plan: The following were reviewed and explained to the patient: primary care/referral note [facility] split night sleep study 09/02/08 AHI = 160, Agueda HC407 nasal mask @ CPAP 12-18 cmH2O + 2 Lpm O2 bleed-in [facility] titration sleep study 10/18/08 CPAP 16-18 cmH2O [facility] titration sleep study 03/26/15 CPAP 14 cmH2O [facility] titration sleep study 05/16/15 ResMed medium AirFit F10 full face mask @ 6-20 cmH2O [facility] titration sleep study 06/06/22 Agueda small Vitera full face mask @ CPAP 19 cmH2O + 1 Lpm O2 bleed-in PAP compliance downloaded and interpreted x 20 minutes. Data reviewed and explained to the patient. Average apnea/hypopnea index (AHI) is 0.9. Patient used PAP > 4 hours 99% of the time. PAP is set at 6-20 cmH2O. PAP will remain at 6-20 cmH2O. Keep EPR +3. Keep ramp off. Keep humidification at level 4. Keep tube temperature at 81 F. Oxygen supplementation: none Patient is benefiting from PAP therapy. Encouraged patient to maintain PAP use more than 70% of the time. Statement of PAP use and benefits will be sent to the home care store. Educated the patient on problems and solutions associated with positive airway pressure (PAP) use. Difficulty tolerating pressure, mask leaks, intolerance of interface, nasal congestion, claustrophobic response, dry mouth, and unintentional mask removal during sleep were covered. Patient's mask leaks air. We will ensure the mask is situated properly. Patient can wear protective eye covering during sleep, and the mask can be resized. ResMed Air Sense 11 auto set unit with heated humidifier, supplies and ResMed medium AirFit F20 full face mask @ 6-20 cmH2O ordered. Further titration will be based on clinical response. Provided the patient with a list of local home care stores where positive airway pressure (PAP) units, accoutrement, and services are available. Home care store selection is based on patient's insurance carrier. Patient will setup an appointment with [facility] for supplies and pressure adjustments. A major predictor of success with use of PAP is follow-up with both the respiratory supplier and the treating physician. The respiratory supplier optimally will follow-up within two weeks after starting use while the treating physician optimally will follow-up within 90 days after starting therapy to assess adherence and effectiveness of treatment. The download results can show the treating physician information about adherence to treatment, residual AHI while on treatment and presence of large mask leakage. This information is especially helpful if the patient has residual sleepiness despite treatment. General information on sleep disordered breathing, evaluation of sleep disordered breathing, treatment with PAP therapy, and living with PAP therapy were covered. We discussed with the patient the impact of weight on: Sleep disordered breathin DM Hyperlipidemia Hypertension CHF LOBO CKD Mixed urinary incontinence Gout We discussed with the patient the benefit of PAP therapy on: Sleep disordered breathing Anxiety DM Hypertension CHF LOBO Educated the patient on sleep hygiene measures. Relaxing rituals to rest easy, understanding foods with positive and negative impact on sleep, creating a peaceful sleep environment, timing of exercise, using herbal sleep aids, and practicing sleep-friendly meditation were covered. To determine how much sleep is needed, the patient will assess where she falls on the spectrum, examine what lifestyle factor such as stress is affecting the quality and quantity of sleep. In general, adults need 7-9 hours of sleep. Educated the patient regarding foods that promote sleep. These include but are not limited to cherries, bananas, toast, oatmeal, and warm milk. Educated the patient regarding foods and drinks to avoid before bedtime. These include but are not limited to aged cheese, chocolate, spicy foods, tomato-based sauces, soy, ginseng tea and processed meat. Advocated influenza vaccination annually and pneumonia vaccination in 2027. Advocated weight loss through diet and exercise. Patient's ideal body weight according to height and gender is up to 130 lbs. Encouraged patient to adjust caloric intake to maintain/achieve ideal body weight, emphasizing on fruits, vegetables, whole grains, and fat-free or low-fat products. These include lean meats, poultry, fish, beans, eggs, and nuts and foods that are low in saturated fats, trans-fats, cholesterol, salt (sodium), and glycemic index. Stressed the importance of regular exercise up to the patient's capacity limits. In this case, we recommend 20 min daily walking, 2 days a week of resistance training. Patient to monitor BP daily and bring records to PCP for further management. Follow-up: 3 months, October 2023 [facility]5 Not available 07/23/2023 15:36:34 Plan of Treatment Reminders Order Date Submit Date Provider Last Modified By Organization Details Last Modified Time Details Appointments Any 2024 08:30A Juan Birmingham MD Not available Not available Not available Medicare Wellness 15 2024 01:00P Juan Birmingham MD Not available Not available Not available Lab lipid panel, serum [address] (Lab), [address] [place], [address], 02/03/2023 11:49:34 urinalysi s, complete [address] (Lab), [address] [place], [address], 04/07/2024 09:07:23 glycohemo globin, total, blood [address] (Lab), [address] [place], [address], 04/07/2024 09:07:23 lipid panel, serum [address] (Lab), [address] [place], [address], 04/07/2024 09:07:23 Referral None recorded. Procedures None recorded. Surgeries None recorded. Imaging MAMMO, screening , digital, bilateral 2023 024 [id number] [facility] ([facility] Sched[facility]), [address] [place], [address], 06/25/2023 08:40:34 DEXA 2024 025 [facility], [address], [place], [address], 04/07/2024 09:10:37 Medication Orders None recorded. Patient TargetsNo targets recorded. Patient Instructions Encounter Date Encounter Id Patient Instructions Last Modified By Organization Details Last Modified Time 01/23/2023 [id number] [email or web address] 1 Not available 01/23/2023 11:19:58 05/26/2023 [id number] [email or web address] 1 Not available 05/26/2023 09:59:39 10/27/2023 [id number] dementia rating scale-2* Not available 10/27/2023 10:12:02 depression screening* Not available 10/27/2023 10:12:03 alcohol misuse* Not available 10/27/2023 10:12:02 multi-dimensiona l health assessment questionnaire* [email or web address] Not available 10/28/2023 08:40:01 advance directiv es: care instructions Not available 10/27/2023 10:12:03 advance care planning: care instructions Not available 10/27/2023 10:12:02 [place] Advance Directives Not available 10/27/2023 10:12:02 Personalized Health Plan and Screening Recommendations Advance Directives - Do you have one? No You have indicated that you are capable of preparing your advance care directive Advance Directives - Do we have your advance directive on file in your health record? No, please bring in a copy at your earliest convenience Primary Prevention/Interven tion (prevents or decreases the chance of common diseases from occurring) Smoking Risk: Non Smoker Alcohol Misuse Screening: Negative Weight: Appropriate Overwei ght continue your current weight loss efforts try to lose 5% of your body weight try to lose 10% of your body weight try to lose 15% of your body weight Physical activity: Appropriate physical activity minimum of 10-20 minutes of activity that causes mild breathlessness/day Nutrition: Good Average Refer to attached handout Heart-Healthy Diet: After Your Visit Fall Risk (screened today): Low Refer to attached handout Preventing Falls: After your Visit Vaccines Pneumococcal: Ordered Recommended today Recommended today, but you have declined No further needed Influenza: Your next one in the fall of this year Chronic Disease Risks Stroke: Low Risk Intermediate Risk I have no recommendations Act kalyn diagnosis, Continue current treatment plan Heart Attack: Low risk Intermediate Risk I have no recommendations Act kalyn diagnosis, Continue current treatment plan Clogging of the Arteries: Low risk Intermediate Risk I have no recommendations Act kalyn diagnosis, Continue current treatment plan Diabetes: Low Risk Intermediate Risk Active diagnosis, Continue current treatment plan Secondary Prevention/Interven tion (detects treatable diseases before they may cause symptoms, disability, or ) Breast Cancer Screening with mammogram: No screening necessary Cervical/Uterine/Ov gera Cancer Screening: No screening necessary Osteoporosis Screening: No screening necessary Date Screening Last Performed: Colon Cancer Screening: No screening necessary Date Screening Last Performed: 2022 Eye Disease Screening: No Eye exam necessary Dementia Risk: Low I have no recommendations Depression Screening: Negative [email or web address] Not available 10/27/2023 10:00:01 04/07/2024 [id number] [email or web address] 1 Not available 04/07/2024 08:48:21 Reason for Referral None Reported. Results Created Date Observation Date Name Description Value Unit Range Abnormal Flag Note LastModifiedBy Organization Detail LastModifiedTime 06/17/19 24 06/17/2023 MAMMO , scree shoaib, digit al, bilat eral [facility] [address] [address] Patien t Name: DOMONIQUE STEWARD Access ion #: [id number] Sex: F : 1960 2 Dictat ed By: Jourdan roblero Attend ing Physic maame: BRIGID BIRMINGHAM ER Orderi ng Physic maame: BRIGID BIRMINGHAM ER Exam Date: 2023 08:07 AM Exam Name: MG THOMPSON BREAST SHLOMO BILAT Admitt ing Diagno sis(es ): CLINIC AL HISTOR Y: Screen ing exam, no breast compla ints. No person al histor y of breast cancer or prior breast interv ention . No family histor y of breast cancer . COMPAR ALYSE: Prior mammog naa dated 06/15/19 23, 022, and 021. TECHNI QUE: Digita l breast tomosy nthesi s was perfor med. Synthe sized CC and MLO images were create d from the tomosy nthesi s images . CAD was utiliz ed. FINDIN GS: The breast s are almost entire ly fatty (categ ory A). No suspic ious mass, kingsley ectura l distor tion, or suspic ious microc alcifi cation s are seen. The axilla e, skin and nipple s are normal . IMPRES DU: Normal mammog laurel. RECOMM ENDATI ONS: In the absenc e of new breast compla ints, annual screen ing is recomm ended. The patien t will be notifi ed of the mammog kimber result s per hospit al protoc ol. BI-RAD S CATEGO RY: 1: Negati ve. Electr onical ly Signed by: Jourdan roblero at 2023 10:07: 07 AM Page 1 [facility] (Imaging) [address] [place], [address], 07/23/2023 14:17:09 Result Notes None recorded. Problems Name Problem SNOMED Code Status Onset Date Resolution Date Notes Provider Name and Address Organization Details Recorded Time Chronic obstructi ve pulmonary disease 06689574 Active 2021 Not Available [facility] 4 07:30:44 Hyperkale shahram 98307155 Completed Not Available [facility] 3 01:04:57 Mammograp hy abnormal 963156688 Active 2020 right breast benign nodule, Not Available [facility] 4 07:30:44 Adrenal adenoma 080460426 Active 2020 Not Available [facility] 4 07:30:44 Wound of skin 463587617 Completed Not Available [facility] 3 01:04:57 Anemia 902915821 Active 2020 Not Available [facility] 4 07:30:44 Chest pain 21971889 Completed Not Available [facility] 3 01:04:57 Type 2 diabetes mellitus without complicat ion 231216563 Completed 202105/24/2022 Carole brewer, RMNidia hooks, [place] [facility] 3 11:34:07 History of fracture 265084555 Active 2020 Rib Fx 01/27 Not Available [facility] 4 07:30:44 Obesity 542198541 Active 2020 Not Available [facility] 4 07:30:44 Congestiv e heart failure 82877635 Active 2020 Not Available [facility] 4 07:30:44 Diabetic periphera l neuropath y 424424771 Active 2021 Not Available [facility] 4 07:30:44 Chronic kidney disease stage 3 467148815 Active 2020 Not Available [facility] 4 07:30:44 Cataract due to diabetes mellitus 50248074 Active 2020 Not Available [facility] 4 07:30:44 Anxiety 31933073 Active 2020 Not Available [facility] 4 07:30:44 Cough 21199112 Completed 202103/29/2022 Not Available [facility] 3 01:04:58 Hyperlipi demia 40493525 Active Not Available [facility] 4 07:30:44 Essential hypertens ion 04538502 Active Not Available [facility] 4 07:30:44 Obstructi ve sleep apnea syndrome 69692350 Active Not Available [facility] 4 07:30:44 Ex-smoker 3860292 Active 2020 Not Available [facility] 4 07:30:44 Gout 62643370 Active 2020 Not Available [facility] 4 07:30:44 Bilateral hearing loss 90571250 Active 2021 Not Available [facility] 4 07:30:44 Female stress incontine nce 48289131 Active 2022 Not Available [facility] 4 07:30:44 Urge incontine nce of urine 57916249 Active 2022 Not Available [facility] 4 07:30:44 Overactiv e urinary bladder 281709854 Active 2023 Carole brewer RMA null, [facility] [employer] [facility] 4 08:57:46 Sleep apnea 95846000 Active 2023 Carole brewer RMA null, [place] [employer] [facility] [employer] [facility] 4 08:57:46 Diabetes mellitus 69266061 Active 2023 Carole brewer RMA null, [employer] [facility] [employer] [facility] 4 08:57:46 Notes:Medical History: Anxie ty Bilateral hearing loss Obesity with very severe OSAHS, AHI = 160, 09/02/08, on CPAP + 1 Lpm O2 bleed in c/o Provider Plus T2DM with neuropathy Hyperlipidemia Hypertension with LVH CHF EF 59% LOBO Diverticulosis Adrenal adenoma Stage 3 CKD Mixed urinary incontinence Vit D deficiency Rib fractures Gout Procedure History: 1989 Bilateral cataract extraction with IOL 1998 Cholecystectomy 2005 Colonoscopies 2022 Occupational History: Retired [employer] employee Problem Notes None recorded. Procedures Surgical History Date Name Laterality Status Provider Name and Address Organization Details Recorded Time 10/27/19 Medicare Wellness CPT Code, subsequent completed MARLY Collins [facility] 10/27/2023 09:28:35 10/27/19 24 Advanced Care Planning completed MARLY Collins [facility] 10/27/2023 09:49:44 09/25/19 23 Medicare Wellness CPT Code, subsequent completed MAHIN [facility] [place] [facility] 09/24/2022 11:09:51 05/25/19 23 Medicare Wellness CPT Code, subsequent completed Mary Pelletier RN [facility] [employer] [facility] 05/24/2022 11:48:52 10/04/19 22 Most Recent Bone Density completed Mary Pelletier RN [facility] [employer] [facility] 05/24/2022 12:03:33 07/03/19 22 Date of Last Mammogram completed Mary Pelletier RN [facility] [employer] [facility] 05/24/2022 12:03:02 04/22/19 13 Date of Last Colonoscopy completed Not Available [facility] 05/08/2022 00:57:23 Gallbladder Surgery completed Not Available [facility] 05/08/2022 00:57:26 completed Not Available [facility] 0 05/08/2022 00:57:26 Imaging Results Imaging Date Name Status LastModified by Organiz ation Details LastModified Time 06/17/2023 MAMMO, screening, digital, bilateral completed [facility] ([facility]) [address] [place], [address], 07/23/2023 14:17:09 Procedure Notes None recorded. Medical Equipment None Reported. Allergies No known drug allergies Medications Name Sig Start Date Stop Date Status Note LastModified by Organization Details LastModified Time losartan 50 mg tablet TAKE 1 TABLET BY MOUTH ONCE DAILY active Not Available Not Available No t Available amoxicilli n 500 mg capsule 08/28 completed Not Available Not Available Not Available furosemide 40 mg tablet TAKE 1 TABLET DAILY IN THE MORNING active Not Available Not Available No t Available metformin 500 mg tablet TAKE 1 TABLET BY MOUTH ONCE DAILY IN THE MORNING AND 2 IN THE EVENING WITH SUPPER. active Not Available Not Available No t Available oxybutynin chloride ER 15 mg tablet,ext ended release 24 hr TAKE 1 TABLET BY MOUTH ONCE DAILY active Not Available Not Available No t Available atorvastat in 10 mg tablet Take 1 tablet every day by oral route. active Not Available Not Available No t Available oxybutynin chloride ER 10 mg tablet,ext ended release 24 hr TAKE 1 TABLET BY MOUTH ONCE DAILY 05/24 completed Not Available Not Available Not Available azithromyc in 250 mg tablet TAKE 2 TABLETS BY MOUTH ON DAY 1, AND THEN TAKE 1 TABLET BY MOUTH ONCE A DAY ON DAY 2 THROUGH DAY 5 01/24 completed Not Available Not Available Not Available fluconazol e 150 mg tablet TAKE 1 TABLET BY MOUTH NOW, REPEAT IN 72 HOURS 07/21 completed Not Available Not Available Not Available benzonatat e 200 mg capsule Take 1 capsule 3 times a day by oral route. 03/29 completed Not Available Not Available Not Available ampicillin 500 mg capsule TAKE ONE CAPSULE TWICE DAILY UNTIL ALL TAKEN active Not Available Not Available No t Available citalopram 10 mg tablet TAKE 1 TABLET BY MOUTH ONCE DAILY active Not Available Not Available No t Available ranitidine 300 mg tablet TAKE 1 TABLET TWICE DAILY 07/25 completed Not Available Not Available Not Available hydrocodon e 5 mg-acetami nophen 325 mg tablet active Not Available Not Available No t Available glipizide ER 10 mg tablet, extended release 24 hr TAKE 1 TABLET BY MOUTH ONCE DAILY 08/26 completed Not Available Not Available Not Available Lantus U-100 Insulin 100 unit/mL subcutaneo us solution INJECT 65 UNITS SUBCUTAN EOUSLY NIGHTLY active Not Available Not Available No t Available metronidaz ole 500 mg tablet active Not Available Not Available Not Available ciprofloxa johana 250 mg tablet 04/24 completed Not Available Not Available Not Available allopurino l 100 mg tablet TAKE 1 TABLET BY MOUTH TWICE DAILY active Not Available Not Available No t Available ciprofloxa johana 500 mg tablet TAKE 1 TABLET BY MOUTH EVERY 12 HOURS FOR 10 DAYS 01/24 completed Not Available Not Available Not Available sulfametho xazole 800 mg-trimeth oprim 160 mg tablet Take 1 tablet twice a day by oral route for 7 days. 05/10 completed Not Available Not Available Not Available simvastati n 40 mg tablet TAKE 1 TABLET BY MOUTH ONCE DAILY IN THE EVENING active Not Available Not Available No t Available pantoprazo le 20 mg tablet,del ayed release TAKE 1 TABLET BY MOUTH ONCE DAILY active Not Available Not Available No t Available sodium chloride 0.9 % irrigation solution active Not Available Not Available Not Available prednisolo ne acetate 1 % eye drops,susp ension 09/12 completed Not Available Not Available Not Available benzonatat e 100 mg capsule TAKE 1 CAPSULE BY MOUTH EVERY 8 HOURS NEEDED 01/24 completed Not Available Not Available Not Available cephalexin 500 mg capsule 01/14 completed Not Available Not Available Not Available ferrous sulfate 325 mg (65 mg iron) tablet Take 1 tablet every day by oral route. 2017 active Not Available Not Available Not Avai lable tobramycin 0.3 % eye drops 09/12 completed Not Available Not Available Not Available ergocalcif brissa (vitamin D2) 1,250 mcg (50,000 unit) capsule TAKE 1 CAPSULE BY MOUTH ONCE A WEEK active Not Available Not Available No t Available insulin lispro (U-100) 100 unit/mL subcutaneo us solution INJECT 20 UNITS SUB-Q AT BREAKFAS T, 25 UNITS AT LUNCH, AND 10 UNITS AT SUPPER active Not Available Not Available No t Available ibuprofen 600 mg tablet active Not Available Not Available Not Available cefdinir 300 mg capsule active Not Available Not Available Not Available losartan 100 mg tablet TAKE 1 TABLET BY MOUTH ONCE DAILY active Not Available Not Available No t Available calcitriol 0.25 mcg capsule TAKE 1 CAPSULE BY MOUTH ONCE A DAY 05/26 completed Not Available Not Available Not Available olmesartan 20 mg tablet TAKE 1 TABLET DAILY active Not Available Not Available No t Available olmesartan 40 mg tablet Take 1 tablet every day by oral route. 01/12 completed Not Available Not Available Not Available Alcohol Prep Pads active Not Available Not Available No t Available solifenaci n 5 mg tablet TAKE 1 TABLET BY MOUTH ONCE DAILY 09/19 completed Not Available Not Available Not Available Humalog U-100 Insulin 15 u if under 200, if over 200 uses 19u. Breakfas t, Lunch and dinner 09/17 completed Not Available Not Available Not Available Adult Low Dose Aspirin daily 07/21 completed Not Available Not Available Not Available ProAir HFA 90 mcg/actuat ion aerosol inhaler 01/12 completed as needed Not Available Not Available Not Available OneTouch UltraMini kit 11/20 completed Not Available Not Available Not Available Pataday 0.2 % eye drops active Not Available Not Available Not Available Symbicort 160 mcg-4.5 mcg/actuat ion HFA aerosol inhaler INHALE 2 PUFFS BY MOUTH TWICE DAILY active Not Available Not Available No t Available trospium ER 60 mg capsule,ex tended release 24 hr Take 1 capsule every day by oral route for 30 days. 01/23 completed Not Available Not Available Not Available OneTouch Delica Lancets 33 gauge 11/20 completed Not Available Not Available Not Available OneTouch Verio test strips USE 1 STRIP TO CHECK GLUCOSE 4 TIMES DAILY 07/21 completed Not Available Not Available Not Available OneTouch Verio Mid Control solution USE TO CALIBRAT E GLUCOMET ER active Not Available Not Available No t Available insulin syringe U-100 with needle 1 mL 31 gauge x 15/64 USE 1 THREE TIMES DAILY 07/21 completed Not Available Not Available Not Available ascorbate calcium-bi oflavonoid 1,000 mg-200 mg tablet Take 1 tablet every day by oral route. 2017 active Not Available Not Available Not Avai lable TRUEplus Insulin 0.5 mL 31 gauge x 5/16 syringe USE 3 INJECTIO NS DAILY active Not Available Not Available No t Available BD Insulin Syringe Ultra-Fine 1 mL 31 gauge x 5/16 USE 1 SYRINGE 4 TIMES DAILY 07/21 completed Not Available Not Available Not Available Farxiga 10 mg tablet TAKE 1 TABLET BY MOUTH ONCE DAILY active Not Available Not Available No t Available Humalog Mix 12u if under 200, if over 200 use 20u 07/[address] Deal Not Available Not Available Not Available Bydureon 2 mg/0.65 mL subcutaneo us pen injector INJECT 1 SYRINGE SUBCUTAN EOUSLY ONCE A WEEK 09/04 completed Not Available Not Available Not Available TRUEplus Pen Needle 32 gauge x 5/32 USE WITH SLIDING SCALE UP TO 3 TIMES DAILY active Not Available Not Available No t Available Bydureon BCise 2 mg/0.85 mL subcutaneo us auto-injec tor INJECT 2 MG SUBCUTAN EOUSLY ONCE A WEEK 05/24 completed Not Available Not Available Not Available OneTouch Ultra Blue Test Strip USE STRIP TO CHECK GLUCOSE THREE TIMES DAILY active Not Available Not Available No t Available OneTouch Ultra Blue Test Strip Test 4 times daily 12/22 completed Not Available Not Available Not Available OneTouch Verio Reflect Meter USE TO TEST BLOOD SUGARS 4 TIMES DAILY 10/04 completed Not Available Not Available Not Available Ozempic 1 mg/dose (4 mg/3 mL) subcutaneo us pen injector INJECT 1 MG SUBCUTAI NOUSLY EVERY 7 DAYS 01/23 completed Not Available Not Available Not Available Ozempic 2 mg/dose (8 mg/3 mL) subcutaneo us pen injector INJECT 2MG SUB-Q ONCE A WEEK active Not Available Not Available No t Available Vitals Date Recorded Body height Body mass index (BMI) Body weight Body temperature Heart rate Systolic blood pressure Diastolic blood pressure Provider Name and Address Organization Details Last Updated DateTime 3 162.56 cm 46.3 kg/m2 790162. 94 g 82 [degF] 97 /min 130 mm[Hg] 66 mm[Hg] SURYA Gutierrez [employer] [facility] [employer] 3 11:18:04 Date Recorded Body height Body mass index (BMI) Body weight Body temperature Heart rate Oxygen saturation Oxygen saturation in Arterial blood by Pulse oximetry Systolic blood pressure Diastolic blood pressure Provider Name and Address Organization Details Last Updated DateTime 4 162.56 cm 44.3 kg/m2 216322. 83 g 97.3 [degF] 104 /min 94 % 94 % 128 mm[Hg] 74 mm[Hg] SURYA Gutierrez [employer] [facility] [employer] 4 09:59:04 Date Recorded Body height Body mass index (BMI) Body weight Body temperature Heart rate Oxygen saturation Oxygen saturation in Arterial blood by Pulse oximetry Systolic blood pressure Diastolic blood pressure Provider Name and Address Organization Details Last Updated DateTime 4 162.56 cm 44.3 kg/m2 873918. 83 g 98.5 [degF] 92 /min 95 % 95 % 112 mm[Hg] 64 mm[Hg] Michelle Miller MA [email or web address] 4 14:49:53 Date Recorded Heart rate Respiratory rate Provider Lavelle edgar and Address Organization Details Last Updated DateTime 07/23/2023 92 /min 15 /min Ran Ayers MD [address] [facility], [place] [place] [address], [place], [address], [employer] [facility] [employer] 07/23/2023 15:39:18 Date Recorded Body height Body mass index (BMI) Body weight Body temperature Heart rate Oxygen saturation Oxygen saturation in Arterial blood by Pulse oximetry Systolic blood pressure Diastolic blood pressure Provider Name and Address Organization Details Last Updated DateTime 4 162.56 cm 44.1 kg/m2 631746. 24 g 97.2 [degF] 83 /min 94 % 94 % 132 mm[Hg] 70 mm[Hg] Carole kelley SURYA [facility] [employer] [facility] 4 08:57:23 Date Recorded Pain severity - 0-10 verbal numeric rating [Score] - Reported Provider Name and Address Organization Details Last Updated DateTime 10/27/2023 0 Margareth Mancuso RN [facility] [employer] [facility] 10/27/2023 09:29:09 Date Recorded Body height Body mass index (BMI) Body weight Body temperature Heart rate Oxygen saturation Oxygen saturation in Arterial blood by Pulse oximetry Systolic blood pressure Diastolic blood pressure Provider Name and Address Organization Details Last Updated DateTime 5 162.56 cm 44.1 kg/m2 597240. 24 g 97 [degF] 72 /min 95 % 95 % 126 mm[Hg] 70 mm[Hg] Carole kelley Nidia [facility] [employer] [facility] 5 08:43:26 Social History Question Answer Notes LastModified by Organization Details LastModified Time Tobacco Smoking Status Former Smoker Terrie Cheney jessee [facility] [employer] [facility] 01/23/2023 11:03:38 Do You Have An Advance Directive? No [id number] [id number] Information not available 05/08/2022 What Is Your Level Of Alcohol Consumption? Occasional [email or web address] Information not available 10/27/2023 How Many Years Have You Consumed Alcohol? 34 30y/o Start [email or web address] Information not available 10/27/2023 Is Blood Transfusion Acceptable In An Emergency? Yes [email or web address] Information not available 10/27/2023 What Is Your Level Of Caffeine Consumption? Moderate [id number] Information not available 05/08/2022 How Much Tobacco Do You Chew? None [id number] Information not available 05/08/2022 In The 14 Days Before Symptom Onset, Have You Had Close Contact With A Laboratory-conf edilia HERRERA-19 While That Case Was Ill? No Not Applicable [email or web address] Information not available 10/27/2023 In The 14 Days Before Symptom Onset, Have You Had Close Contact With A Person Who Is Under Investigation For COVID-19 While That Person Was Ill? No Not Applicable [email or web address] Information not available 10/27/2023 Are You Currently Employed? No Information not available 07/23/2023 What Type Of Diet Are You Following? REGULAR [id number] [id number] Information not available 05/08/2022 Which Illicit Or Recreational Drugs Have You Used? None Information not available 01/23/2023 What Is The Highest Grade Or Level Of School You Have Completed Or The Highest Degree You Have Received? [id number] [email or web address] Information not available 10/27/2023 Do You Have An Electrostatic Air Filter? No Information not available 07/23/2023 What Is Your Occupation? Retired Information not available 01/23/2023 How Many Days Of Moderate To Strenuous Exercise, Like A Brisk Walk, Did You Do In The Last 7 Days? 6 [email or web address] Information not available 10/27/2023 On Those Days That You Engage In Moderate To Strenuous Exercise, How Many Minutes, On Average, Do You Exercise? 30 [email or web address] Information not available 10/27/2023 Have There Been Any Changes To Your Family Or Social Situation? No Information not available 01/23/2023 What Is The Fluoride Status Of Your Home? Fluoridated Information not available 01/23/2023 When Did You Quit Smoking? 16+yearssincelastc igarette Quit Approx 18 Years Prior As Of 10/27/2023 [email or web address] Information not available 10/27/2023 Are There Any Guns Present In Your Home? No [email or web address] Information not available 10/27/2023 Do You Have A Humidifier? No Information not available 07/23/2023 Do You Use Insect Repellent Routinely? Yes [email or web address] Information not available 10/27/2023 Where Do You Live? SingleLevelHouse Information not available 01/23/2023 Advance Directive- Providers Has Reviewed Directive And Consents To Follow Them (insert Provider Name With Any Objectives In Notes Field) No [email or web address] Information not available 05/24/2022 Presence Of Domestic Violence No [email or web address] Information not available 10/27/2023 Guns Present In The Home? No [email or web address] Information not available 10/27/2023 Are You Able To Care For Yourself? Yes Information not available 05/24/2022 Are You Blind Or Do Yo Have Difficulty Seeing? No [email or web address] Information not available 05/24/2022 Are You Deaf Or Do You Have Serious Difficulty Hearing? No [email or web address] Information not available 05/24/2022 General Stress Level? Low [email or web address] Information not available 05/24/2022 Live Alone Of With Others? With Others [email or web address] Information not available 05/24/2022 Do You Have A Medical Power Of Interior Assemblies Installer? No [email or web address] Information not available 10/27/2023 Do You Have Moisture Problems In Your Home? No Information not available 07/23/2023 What Was The Date Of Your Most Recent Tobacco Screening? 10/27/2023 [email or web address] Information not available 10/27/2023 How Many Children Do You Have? 1 Information not available 07/23/2023 What Is Your Current Pack Years? 10packyears [email or web address] Information not available 10/27/2023 Have You Ever Been Counseled For Unhealthy Alcohol Use? No [email or web address] Information not available 10/27/2023 Do You Have Any Pets? Yes Information not available 07/23/2023 What Is Your Relationship Status? Information not available 07/23/2023 Do You Use Your Seat Belt Or Car Seat Routinely? Yes Information not available 07/23/2023 Are You Sexually Active? No [email or web address] Information not available 10/27/2023 Do You Have Smoke And Carbon Monoxide Detectors In Your Home? Yes Information not available 01/23/2023 At What Age Did You Start Smoking Tobacco? 13 [email or web address] Information not available 10/27/2023 Are You Passively Exposed To Smoke? No Information not available 07/23/2023 Are There Any Smokers In Your House? No [email or web address] Information not available 10/27/2023 How Much Tobacco Do You Smoke? 1 PPW [email or web address] Information not available 10/27/2023 What Types Of Sporting Activities Do You Participate In? Water Areobics/ Walking On Treadmill [email or web address] Information not available 10/27/2023 Do You Feel Stressed (tense, Restless, Nervous, Or Anxious, Or Unable To Sleep At Night)? [id number] [email or web address] Information not available 10/27/2023 Do You Use Any Illicit Or Recreational Drugs? No Information not available 01/23/2023 Do You Use Sunscreen Routinely? Yes Information not available 01/23/2023 Has Tobacco Cessation Counseling Been Provided? No Information not available 01/23/2023 How Many Years Have You Smoked Tobacco? 32 [email or web address] Information not available 10/27/2023 Have You Recently Traveled Abroad? No Information not available 07/23/2023 Do You Have Any Dietary Restrictions? No Information not available 07/23/2023 Do You Or Have You Ever Used Any Other Forms Of Tobacco Or Nicotine? No Information not available 01/23/2023 How Many Days In The Past Year Have You Consumed 4 Or More Drinks? 0 [email or web address] Information not available 10/27/2023 Sex: Female Functional Status Question Answer Note LastModified by Organization D etails LastModified Time What is your exercise level? Moderate [email or web address] Information not available 10/27/2023 Mental Status None recorded. Family History Relationship Description Onset Age of this Age Resolved Age Notes LastModified by Organization Details LastModified Time Father Essential hypertension Not available 11:03:34 Father Congestive heart failure Not available 2022 11:03:34 Father Myocardial infarction [email or web address] Not available 07/22 15:41:01 Father Diabetes mellitus [id number] Not available 05/08/2022 00:57:32 Mother Essential hypertension Not available 11:03:34 Mother Congestive heart failure Not available 2022 11:03:34 Mother Diabetes mellitus [id number] Not available 05/08/2022 00:57:32 Brother Congestive heart failure Not available 2022 11:03:34 Brother Diabetes mellitus [email or web address] Not available 2023 15:41:41 Brother Malignant neoplasm of liver [email or web address] Not available 2023 15:41:54 Brother Renal failure syndrome [email or web address] Not available 2023 15:42:01 Brother Hypertensive disorder [email or web address] Not available 2023 15:42:21 Brother Retinopathy due to diabetes mellitus [email or web address] Not available 2023 15:42:39 Paternal Grandfather Diabetes mellitus [email or web address] Not available 2023 15:39:40 Paternal Grandmother Diabetes mellitus [email or web address] Not available 2023 15:39:43 Paternal Uncle Diabetes mellitus [email or web address] Not available 2023 15:40:00 Paternal Aunt Diabetes mellitus [email or web address] Not available 2023 15:40:03 Maternal Uncle Malignant tumor of lung [email or web address] Not available 2023 15:40:41 Sister Renal failure syndrome [email or web address] Not available 2023 15:41:30 Sister Diabetes mellitus [email or web address] Not available 2023 15:41:37 Medical History Condition Response MRSA N SLEEP APNEA N ALLERGIES/HAYFEVER N OTHER # 1 N LUNG DISEASE/DISORDER N INSOMNIA N RADIATION / CHEMOTHERAPY N COPD N HIGH CHOLESTEROL / HYPERLIPIDEMIA N HYPERTHYROIDISM N Other # 2 N NEUROLOGICAL PROBLEMS N BLOOD DISEASES N SURGERY N EAR OR HEARING PROBLEMS N HYPOTHYROIDISM N DEPRESSION (INCLUDING POST ) N HAVE YOU BEEN HOSPITALIZED OR SEEN IN [facility] IN THE PAST YEAR ? N STROKE/TIA N ULCERS N OBESITY N ANEURYSM N HISTORY WITH COMPLICATIONS WITH ANESTHES IA ? N USE OF BLOOD THINNERS N NO SIGNIFICANT PAST MEDICAL HISTORY N DIABETES, TYPE Y PARATHYROID DISEASE N ENT N SEASONAL ALLERGIES N HEARTBURN / REFLUX N HEPATITIS / LIVER DISEASE N CATARACTS Y SLEEP DISORDER Y HEADACHES/MIGRAINES N SEIZURES/EPILEPSY N CHF Y PACEMAKER N DIZZINESS N AIDS/HIV N KIDNEY DISEASE Y FRACTURES N HYPERTENSION Y CANCER: SPECIFY N BLOOD TRANSFUSION N ANESTHESIA COMPLICATIONS N ANEMIA/BLOOD DISORDER N CHRONIC EAR INFECTIONS N TUBERCULOSIS N Gynecological History Statement/Question Response Date of Last Pap 09/25/2016 Date of Last Mammogram 07/02/2021 Date of Last Colonoscopy 04/22/2012 Date of Last Mammogram 07/02/2021 Most Recent Bone Density 10/03/2021 Obstetrics History GPAL:G 0 P 0 0 0 0 Immunizations Vaccine Type Date Status Note Provider Nam e and Address Organization Details Recorded Time Influenza, split virus, quadrivalent, PF 1 completed Not Available [facility] 03/27/2023 07:30:46 Influenza, split virus, quadrivalent, PF 0 completed Not Available [facility] 03/27/2023 07:30:46 Influenza, split virus, quadrivalent, PF 9 completed Not Available [facility] 03/27/2023 07:30:46 Influenza, split virus, quadrivalent, PF 8 completed Not Available [facility] 03/27/2023 07:30:46 Tdap 5 completed Not Available [facility] 03/27/2023 07:30:46 pneumococcal polysaccharide PPV23 5 completed Not Available [facility] 03/27/2023 07:30:46 Influenza, split virus, quadrivalent, PF 7 completed Not Available [facility] 03/27/2023 07:30:46 Past Encounters Encounter ID Performer Location Encounter Start Date Encounter Closed Date Diagnosis/Indication Diagnosis SNOMED-CT Code Diagnosis ICD10 Code Diagnosis Note [id number] [facility] [address] [address] 05/12/2020 00:00:00 05/12/2020 10:41:44 [id number] _ATHENA_M IGRATION_ DEFAULT_1 _1 , 05/26/2020 00:00:00 05/26/2020 12:43:49 [id number] [facility] [address] [address] 08/03/2020 00:00:00 08/03/2020 12:36:17 [id number] [facility] [address] [address] 09/04/2020 00:00:00 09/04/2020 10:05:18 [id number] [facility] [address] [address] 12/22/2020 00:00:00 12/22/2020 10:54:25 [id number] [facility] [address], [address] [address] 01/15/2021 00:00:00 01/15/2021 09:53:19 [id number] [facility] [address], [address] [address] 02/26/2021 00:00:00 02/26/2021 10:28:37 [id number] [facility] [address] [address] 05/16/2021 00:00:00 05/16/2021 13:27:50 [id number] [facility] [address], [address] [address] 05/28/2021 00:00:00 05/28/2021 14:25:14 [id number] [facility] [address] [address] 09/19/2021 00:00:00 09/19/2021 13:22:33 [id number] [facility] [address] [address] 01/24/2022 00:00:00 01/24/2022 12:03:39 [id number] [facility] [address] [address] 04/02/2022 00:00:00 04/02/2022 09:40:49 [id number] Octavia Birmingham MD [facility] [address] [address] 05/24/2022 11:16:55 05/24/2022 12:02:05 Essential hypertension 84762331 I10 under control Diabetes mellitus 517104 09 E11.9 under control Hyperlipidemia 26262130 E78.5 Stable Overactive urinary bladder 754532227 N32.81 Same meds Sleep apnea 88104407 G47 .30 On CPAP Chronic ki dney disease stage 3 415995580 N18.30 GFR getting better Chronic ob structive pulmonary disease 70984237 J44.9 advised to use symbicort daily Ex-smoker 6340803 Z87.89 1 Quit 2006 Anemia 704921688 D64.9 Due to kidney disease, Stable Gout 87692343 M10.9 No recent flare up Congestive heart failure 81972009 I50.9 Stable EF, had stress test Anxiety 55900049 F41.9 stable with meds Bilateral hearing loss 56306361 H91.93 Not getting worse Diabetic p eripheral neuropathy 414623873 E11.40 Mild symptoms, no meds needed Adult heal th examination 743531335 Z00.00 Mammogram nl 2Colo noscopy 04/22/2012 , report in chart, next in ap 2017Dexa 2Pne umovax- 08/02/2014P 12/2021FLU - 12/29Has had both Pfizer vaccinatio n and the booster Screening for disorder 420030130 Z13.9 Screening mammography 24 833695 Z12.31 [id number] Kiel Roque NP [facility] [address], [address] [place] [address] 05/27/2022 13:58:39 05/27/2022 14:28:38 Increased frequency of urination 892504425 R35.0 Continue to avoid bladder irritants. We discussed options of continuing oxybutynin current dosing or increasing to 15 mg daily. Patient is bothered enough that she would like to trial increasing oxybutynin . Will have patient follow-up in 3 months for re-evaluat ion Female str ess incontinence 29262088 N39.3 continue Kegel exercises Urge incon tinence of urine 34684080 N39.41 Nocturia 809239805 R35.1 limit fluids 2 hours prior to bedtime Abnormal urinalysis 1672 25164 R82.90 patient with intermitte nt hematuria on urine dip. She denies any gross hematuria. She reports that she has a diabetic ulcer on her buttocks, that will occasional ly leak blood. We will continue to monitor. If she develops persistent hematuria and hips will send for formal microscopy . We discussed possible etiologies of hematuria including infection, stones, cancer / malignancy , benign tumors, and/or certain anatomic abnormalit ies. [id number] Kiel Roque NP [facility] [place] [address] [facility], [address] [place] [address] 08/26/2022 08:45:44 08/26/2022 09:34:03 Increased frequency of urination 318825400 R35.0 Continue to avoid bladder irritants. We discussed options of continuing oxybutynin current dosing or increasing to 15 mg daily. Patient is bothered enough that she would like to trial increasing oxybutynin . Will have patient follow-up in 3 months for re-evaluat ion 08/26/2022 Doing well with oxybutynin . Will plan to continue. Continue limiting bladder irritants. Follow-up in 6 months--so gonzalo if worse. Female str ess incontinence 76268674 N39.3 continue Kegel exercises Urge incon tinence of urine 17545591 N39.41 Nocturia 564201600 R35.1 limit fluids 2 hours prior to bedtime Abnormal urinalysis 1672 19585 R82.90 patient with intermitte nt hematuria on urine dip. She denies any gross hematuria. She reports that she has a diabetic ulcer on her buttocks, that will occasional ly leak blood. We will continue to monitor. If she develops persistent hematuria and hips will send for formal microscopy . We discussed possible etiologies of hematuria including infection, stones, cancer / malignancy , benign tumors, and/or certain anatomic abnormalit ies. 08/26/22No uti symptoms. checking cx. Will tx if positive. [id number] Octavia Birmingham MD [facility] [address] [place] [address] 09/24/2022 11:00:57 09/24/2022 11:59:43 Essential hypertension 20739255 I10 under control, much better Diabetes mellitus 002393 09 E11.9 under control Hyperlipidemia 04945258 E78.5 Stable Overactive urinary bladder 613906574 N32.81 Same meds Sleep apnea 74915435 G47 .30 On CPAP Chronic ki dney disease stage 3 485591683 N18.30 GFR getting better Chronic ob structive pulmonary disease 85609780 J44.9 advised to use symbicort daily Ex-smoker 5758118 Z87.89 1 Quit 2006 Anemia 423591780 D64.9 Due to kidney disease, Stable Gout 91791725 M10.9 No recent flare up Congestive heart failure 29806133 I50.9 Stable EF, had stress test Anxiety 00231591 F41.9 stable with meds Bilateral hearing loss 19483392 H91.93 Not getting worse Diabetic p eripheral neuropathy 320005448 E11.40 Mild symptoms, no meds needed Adult heal th examination 623488898 Z00.00 Mammogram nl olo noscopy 04/22/2012 , report in chart, next in 2016Dexa ne umovax- 08/02/2014P 12/2021FLU 12/29Has had both Pfizer vaccinatio n and the booster Obesity 118626615 E66.9 losing [id number] Octavia Birmingham MD [facility] [address] [place] [address] 01/23/2023 11:02:52 01/23/2023 12:01:23 Essential hypertension 54448192 I10 under control, Diabetes mellitus 797936 09 E11.9 under control since taking Ozempic Hyperlipidemia 29447829 E78.5 Stable Overactive urinary bladder 203454022 N32.81 Same meds Sleep apnea 52145727 G47 .30 On CPAP Chronic ki dney disease stage 3 839029075 N18.30 better Chronic ob structive pulmonary disease 63047127 J44.9 advised to use symbicort daily Ex-smoker 3499049 Z87.89 1 Quit 2006 Anemia 549160042 D64.9 Due to kidney disease, Stable Gout 98984789 M10.9 No recent flare up Congestive heart failure 71040063 I50.9 Stable EF, had stress test, on Farxiga Anxiety 43147482 F41.9 stable with meds Bilateral hearing loss 40239438 H91.93 Not getting worse Diabetic p eripheral neuropathy 168035968 E11.40 Mild symptoms, no meds needed Adult heal th examination 600339975 Z00.00 Mammogram nl 3Colo noscopy 04/22/2012 , 08/2022, next in 10 yrsPap 2016Dexa ne umovax- 08/02/2014P 12/2021[facility] the booster, [facility]esity 424667235 E66.9 losing weight since on ozempic [id number] Octavia Birmingham MD [facility] [address] [place] [address] 05/26/2023 09:51:15 05/26/2023 10:28:12 Essential hypertension 61622282 I10 under control, Diabetes mellitus 769960 09 E11.9 under control since taking Ozempic, Lantus dose being lowered Hyperlipidemia 00376513 E78.5 Stable Overactive urinary bladder 304775549 N32.81 no change Sleep apnea 48907967 G47 .30 On CPAP Chronic ki dney disease stage 3 974460868 N18.30 better Chronic ob structive pulmonary disease 44788961 J44.9 advised to use symbicort daily Ex-smoker 7979374 Z87.89 1 Quit 2006 Anemia 408407120 D64.9 mild, Due to kidney disease, Stable Gout 91441450 M10.9 No recent flare up Congestive heart failure 24017644 I50.9 Stable EF, had stress test, on Farxiga Anxiety 67751348 F41.9 stable with meds Bilateral hearing loss 24366343 H91.93 Not getting worse Diabetic p eripheral neuropathy 054794220 E11.40 Mild symptoms, no meds needed Adult heal th examination 069473686 Z00.00 Mammogram nl olo noscopy 04/22/2012 , 08/2022, next in 10 yrsPap 2017Dexa ne umovax- 08/02/2014P 12/2021FLU - [facility]- #1- [facility] vaccin[facility] n and the booster, 01/08/2023[facility] Obesity 659014447 E66.9 losing weight since on ozempic, encourged her to lose more Screening mammography 24 426358 Z12.31 [id number] Ran Ayers MD [facility] [place] [address] [facility] [address] [place] [address] 07/23/2023 14:37:02 07/24/2023 08:44:44 Obstructive sleep apnea syndrome 66468300 G47.33 [id number] Octavia Birmingham MD [facility] [address] [place] [address] 10/27/2023 08:53:04 10/27/2023 09:48:25 Essential hypertension 09211143 I10 under control, Diabetes mellitus 323705 09 E11.9 under control Hyperlipidemia 33433457 E78.5 Stable Overactive urinary bladder 550290546 N32.81 no change Sleep apnea 94600676 G47 .30 On CPAP and compliant Chronic ki dney disease stage 3 597893547 N18.30 getting better Chronic ob structive pulmonary disease 03377450 J44.9 under contyrol Ex-smoker 0530447 Z87.89 1 Quit 2006 Anemia 866670465 D64.9 mild, Due to kidney disease, Gout 60901380 M10.9 No recent flare up Congestive heart failure 07604609 I50.9 Stable EF, had stress test, on Farxiga Anxiety 12256622 F41.9 stable with meds Bilateral hearing loss 05357744 H91.93 Not getting worse Diabetic p eripheral neuropathy 263930674 E11.40 Mild symptoms, no meds needed Adult heal th examination 913298021 Z00.00 Mammogram - 06/17/23Co lonoscopy 04/22/2012 , 08/2022, next in 10 yrsPap 2017Dexa ne umovax- 08/02/2014P 12/2021FLU - [facility]- #1- [facility] vaccin[facility] n and the booster, 01/08/2023[facility] Obesity 444801662 E66.9 encouraged her to lose mor Screening for disorder 661544121 Z13.9 [id number] Octavia Birmingham MD [facility] [address] [place] [address] 04/07/2024 08:38:31 04/07/2024 09:08:37 Essential hypertension 47811922 I10 under control, Diabetes mellitus 531442 09 E11.9 under control Hyperlipidemia 89967079 E78.5 Stable Sleep apnea 44387142 G47 .30 On CPAP and compliant Overactive urinary bladder 506901329 N32.81 no change Chronic ki dney disease stage 3 165529169 N18.30 stable/bet ter GFR Chronic ob structive pulmonary disease 74085418 J44.9 under control Ex-smoker 6161310 Z87.89 1 Quit 2006 Anemia 278847943 D64.9 mild, Due to kidney disease, Gout 75374543 M10.9 No recent flare up Congestive heart failure 02179859 I50.9 Stable EF, had stress test, on Farxiga Anxiety 97215633 F41.9 stable with meds Bilateral hearing loss 41449511 H91.93 Not getting worse Diabetic p eripheral neuropathy 293422969 E11.40 Mild symptoms, no meds needed Adult heal th examination 014996454 Z00.00 Mammogram - 06/17/23Co lonoscopy 04/22/2012 , 08/2022, next in 10 yrsPap 2017Dexa 09/2021- [facility]- 08/02/2014P 12/2021FLU - [facility]2024[facility]- #1- [facility] vaccin[facility] n and the booster, 01/08/2023[facility] Obesity 334605981 E66.9 encouraged her to lose more weight Screening for osteoporosis [id number] Z13.820 Health Concerns Section Related Observation LastModified by Organization Detai ls LastModified Time None Recorded Concern Status LastModified by Organization Details LastModified Time None Recorded Advance Directives Directive N: Payers Encounter Date Sequence Insurance Name Policy Number Policy Roman Covered Member ID Roman Member ID Guarantor Name 01/23/2023 1 [facility] - MEDICARE COMPLETE POS (MEDICARE REPLACEMENT HMO) [id number] Pankaj Ferrerpper [id number] Pankaj Keith 05/26/2023 1 [facility] - MEDICARE COMPLETE POS (MEDICARE REPLACEMENT HMO) [id number] Pankaj Ferrerpper [id number] Pankaj Hawley Skipper 07/23/2023 1 [facility] - MEDICARE COMPLETE POS (MEDICARE REPLACEMENT HMO) [id number] Pankaj Hawley Skipper [id number] Pankaj Hawley Skipper 10/27/2023 1 [facility] - MEDICARE COMPLETE POS (MEDICARE REPLACEMENT HMO) [id number] Pankaj Hawley Skipper [id number] Pankaj Hawley Skipper 04/07/2024 1 [facility] - MEDICARE COMPLETE POS (MEDICARE REPLACEMENT HMO) [id number] Pankaj Hawley Skipper [id number] Pankaj Hawley Skipper Notes Date Note Type Note Provider Name and Address Organization Details Recorded Time 01/23/2023 text/html Here for routine f/u, compliant to medsDM-Accu checks are around 101-157, Sees Endo Dr Deal,A1c- 6.3 at endo iabetic neuropathy- mild symptoms, tingling in feet no meds neededsome times gets hypoglycemiaDM eye exam- [facility] [employer] 06/2022 (not in chart)Meds- Lantus 72 units and Humalog BID w/Sliding scale and ozempic weekly, Metformin 500 mg 1 in AM and 2 in PM , ozempic 2 mg weeklyHTN- on meds and under controlMeds- Losartan 100 mg qdAnxiety- meds help, sleeps fine, mood is stable, no side effects, sleep fineMeds- Citalopram 10 mg dailyCKD-seeing Dr Brown, GFR was 33, now 48Meds- Vitamin D 50,000 weekly, Calcitriol 0.25 mg dailySleep apnea- on cpap, compliant,Gout- on meds, No sxMeds- Allopurinol 100 mg BIDObesity-has lost 14 lbs being onGERD- on meds and symptoms are better with meds, needs it dailyMeds- Pantoprazole 20 mg dailyHyperlipidemia- on meds, , under controlMeds- Simvastatin 40 mg dailyCHF- was in the hospital few years ago, seeing cardiology dr brown, no symptoms, EF 60% on echo 07/28Ex- smokerOveractive bladder- on meds, still have some symptoms, was on vesicare and Trospium, seen urologistMeds- oxybutyninAnemia due to kidney disease, Iron def, seen hematology, was getting iron infusion, now otc iron once a dayCOPD- meds help, was on o2 at night but not any moreMeds- symbicort 2 puffs bidDiabetic neuropathy- mild symptoms, no meds neededHearing loss, had hearing evaluation and seen ENT, no significant problemss/p cataract surgeryH/o rib fxBenign adenoma adrenal Octavia Birmingham MD [address] [facility], [address], [place], [address], [place] [employer] 01/23/2023 13:51:36 05/26/2023 text/html Here for routine f/u, compliant to medsDM-Accu checks are around 60-149, Sees Endo Dr Deal,A1c- 6 in 04/02Diabetic neuropathy- mild symptoms, tingling in feet no meds neededsome times gets hypoglycemiaDM eye exam- [facility] [employer] 06/2022 (not in chart)Meds- Lantus 65 units (Dropping it 3u every week until bs stops dropping in the 60's) and Humalog BID w/Sliding scale and weekly, Metformin 500 mg 1 in AM and 2 in PM , ozempic 2 mg weekly, Farxiga 10 mg qdHTN- on meds and under controlMeds- Losartan 100 mg qdAnxiety- meds help, sleeps fine, mood is stable, no side effects, sleep fineMeds- Citalopram 10 mg dailyCKD-seeing Dr Brown, GFR was 33, now 42Meds- Vitamin D 50,000 every other week, Calcitriol 0.25 mg dailySleep apnea- on cpap, compliant,Gout- on meds, No sxMeds- Allopurinol 100 mg BIDObesity-has lost 12 lbs being on . Has lost 80lbs since 2019GERD- on meds and symptoms are better with meds, needs it dailyMeds- Pantoprazole 20 mg dailyHyperlipidemia- on meds, , under controlMeds- Simvastatin 40 mg dailyCHF- was in the hospital few years ago, seeing cardiology dr brown, no symptoms, EF 60% on echo 07/28Ex- smokerOveractive bladder- still have some symptoms, was on vesicare and Trospium, seen urologistMeds- oxybutyninAnemia due to kidney disease, Iron def, seen hematology, was getting iron infusion, now otc iron once a dayCOPD- meds help, was on o2 at night but not any moreMeds- symbicort 2 puffs bidDiabetic neuropathy- mild symptoms, no meds neededHearing loss, had hearing evaluation and seen ENT, no significant problemss/p cataract surgeryH/o rib fxBenign adenoma adrenal Octavia Birmingham MD [address] [facility], [facility] [address], [place], [address], [facility] [employer] 05/26/2023 10:26:48 07/23/2023 text/html Primary care/Ref erring provider: Octavia Birmingham MD; Tj Brown MD CC: My CPAP broke down in 06/2023. It indicates that the motor is out when you turn it on. During the [facility] split night sleep study on 09/02/08, AHI = 160, Gerald & Solo HC407 nasal mask @ CPAP 12-18 cmH2O + 2 Lpm O2 bleed-in was applied. During the [facility] titration sleep study on 10/18/08, CPAP 16-18 cmH2O was applied. During the [facility] titration sleep study on 03/26/15, CPAP 14 cmH2O was applied. During the [facility] titration sleep study on 05/16/15, ResMed medium AirFit F10 full face mask @ 6-20 cmH2O was applied. During the [facility] titration sleep study on 06/06/22, Duarte [employer] Solo small Vitera full face mask @ CPAP 19 cmH2O + 1 Lpm O2 bleed-in was applied. At home since 2022, the patient uses a ResMed AirSense 10 autoset unit with heated humidification. The patient does not need the ramp to start low and go up slowly on the pressure anymore. There is no xerostomia in a.m. There is no hose/mask condensation with water. The patient wears a ResMed medium AirFit F20 full face mask without chin strap. There is no claustrophobia, no nostril/nose bridge irritation, no facial rash, no facial numbness, no nosebleeding. The patient feels less refreshed upon waking and daytime alertness is not as improved. Energy levels are sustained until noon. At home, the patient sleeps from 12 am to 8 am and wakes up by daughter. Snoring: moderate, since 1980s. Snorting: yes Choking: no Coughing: no Gasping: no Gagging: no Sighing: no Witnessed apnea: yes Twitching or jerking of leg(s), arm(s), body, head: no Teeth grinding: no Teeth clenching: no Sleeptalking: no Sleepwalking: no Sleep crying: no Bedwetting: no Tongue/lip/gum/cheek biting: no Sleeping with open mouth: yes Sleep paralysis: no Hypnagogic hallucinations: no Hypnopompic hallucinations: no Vivid dreams: no Difficulty with sleep onset: yes Difficulty with sleep maintenance: yes Sleep interruptions: for no known reasons Patient wakes up with: fatigueDaytime cataplexy: no Morning hypersomnolence: no Afternoon hypersomnolence: yes Caffeine sources in diet: coffee 4 cups per day, soda 1 can per day, chocolate 1 candy bar per week Associated medical and psychiatric conditions: Congestive heart failure: yes Coronary artery disease: no Myocardial infarction: no Hypertension: yes Stroke: no Bronchial asthma: no Chronic obstructive pulmonary disease: no Depression: no Bipolar disorder: no Anxiety: yes Panic disorder: no Posttraumatic stress disorder: no Attention deficit and hyperactivity disorder: no Obsessive Compulsive disorder: no Schizophrenia: no Schizoaffective disorder: no Personality disorder: no Chronic analgesic use: no Chronic sedative/hypnotic use: no EPWORTH SLEEPINESS SCALE (ESS) CHANCE OF DOZING SCORE 0 = would never doze 1 = slight chance of dozing 2 = moderate chance of dozing 3 = high chance of dozing SITUATION AND CHANCE OF DOZING Sitting and reading - 1 Watching television - 1 Sitting inactive in a public place (e.g. a theater or meeting) - 0 As a passenger in a car for an hour without a break - 1 Lying down to rest in the afternoon when circumstances permit - 1 Sitting and talking to someone - 0 Sitting quietly after lunch without alcohol - 1 In a car, while stopped for a few minutes in the traffic - 0 TOTAL SCORE 5 Subjectively, patient has a slight chance of dozing. Ran Ayers MD [address], [place], [address], [place] [employer] 07/23/2023 15:46:20 10/27/2023 text/html Here for routine f/u, compliant to medsDM- Has not been checking, she got a new machine and has not figured it out, Sees Endo Dr Deal,A1c- 6.1 in 08/20/23Diabetic neuropathy- mild symptoms, tingling in feet no meds neededsome times gets hypoglycemiaDM eye exam- [facility] [employer] [facility] [employer] 06/2022 (not in chart)Meds- Lantus 65 units (Dropping it 3u every week until bs stops dropping in the 60's) and Humalog BID w/Sliding scale and weekly, Metformin 500 mg 1 in AM and 2 in PM , ozempic 2 mg weekly, Farxiga 10 mg qdHTN- on meds and under controlMeds- Losartan 100 mg qdAnxiety- meds help, sleeps fine, mood is stable, no side effects, sleep fineMeds- Citalopram 10 mg dailyCKD-seeing Dr Brown, GFR was 33, now 48Meds- Vitamin D 50,000 every other week, Calcitriol 0.25 mg dailySleep apnea- on cpap, compliant, getting benefitGout- on meds, No sxMeds- Allopurinol 100 mg BIDObesity-has lost 1lb . Has lost 80lbs since 2019GERD- needs meds daily and feeling betterMeds- Pantoprazole 20 mg dailyHyperlipidemia- on meds, , under controlMeds- Simvastatin 40 mg dailyCHF- was in the hospital few years ago, seeing cardiology dr brown, no symptoms, EF 60% on echo 07/28Ex- smokerOveractive bladder- still have some symptoms but stable, not getting worse was on vesicare and Trospium, seen urologistMeds- oxybutyninAnemia due to kidney disease, Iron def, seen hematology, was getting iron infusion, now otc iron once a dayCOPD- meds help, was on o2 at night but not any moreMeds- symbicort 2 puffs bidDiabetic neuropathy- mild symptoms, no meds neededHearing loss, had hearing evaluation and seen ENT, no significant problemss/p cataract surgeryH/o rib fxBenign adenoma adrenal Octavia Birmingham MD [address] [facility], [address], [place], [address], [place] [employer] 10/27/2023 10:12:08 04/07/2024 text/html Here for routine f/u, compliant to medsDM- Accu checks AVG- 115, Sees Endo Dr Deal,A1c- 6.1FOOT EXAM:Diabetic neuropathy- mild symptoms, not getting worse, tingling in feet no meds neededsome times gets hypoglycemiaDM eye exam- [facility] [employer] [facility] [employer] 06/2023 (not in chart)Meds- Lantus 55-60 units (Dropping it 3u every week until bs stops dropping in the 60's) and Humalog BID w/Sliding scale and weekly, Metformin 500 mg 1 in AM and 2 in PM , Ozempic 2 mg weekly, Farxiga 10 mg qdHTN- on meds and under controlMeds- Losartan 100 mg qdAnxiety- meds help, sleeps fine, mood is stable, no side effects, sleep fineMeds- Citalopram 10 mg dailyCKD-seeing Dr Brown, GFR was 33, now 48Meds- Vitamin D 50,000 every other week, Calcitriol 0.25 mg dailySleep apnea- on cpap, compliant, getting benefitGout- on meds, No flare upsMeds- Allopurinol 100 mg BIDObesity-has not lost any wt . Has lost 80lbs since 2019GERD- needs meds daily and feeling betterMeds- Pantoprazole 20 mg dailyHyperlipidemia- on meds, , under controlMeds- Simvastatin 40 mg dailyCHF- was in the hospital few years ago, seeing cardiology dr brown, no symptoms, EF 60% on echo 07/28Ex- smokerOveractive bladder- still have some symptoms but stable, not getting worse was on vesicare and Trospium, seen urologistMeds- oxybutynin ER 15 mg qdAnemia due to kidney disease, Iron def, seen hematology, was getting iron infusion, now otc iron once a dayCOPD- meds help, was on o2 at night but not any more, no cough or wheezingMeds- symbicort 2 puffs bidDiabetic neuropathy- mild symptoms, no meds neededHearing loss,-had hearing evaluation and seen ENT, no significant problemss/p cataract surgeryH/o rib fxBenign adenoma adrenal Octavia Birmingham MD [address] [facility], [facility] [address], [place], [address], [place] [facility] 04/07/2024 09:06:37 OBGyn Episode No OBEpisode recorded.
--- OUTSIDE RECORDS SUMMARY | 2024-04-12 10:22 | XMS_ITS | Referral Summary ---
Author Organization [facility] [employer] Address [address] [place] [id number] Care Team Providers Care Ceramics Instructor Name Role Phone Edwardo Murillo MD Primary Care Provider [phone] Darrel Scott MD Unavailable Allergies No known active allergies Medications allopurinol (ZYLOPRIM) 100 mg tablet Take 1 tablet (100 mg total) by mouth daily Active aspirin 81 mg tablet Take 1 tablet (81 mg total) by mouth daily Active citalopram (CeleXA) 10 mg tablet Take 1 tablet (10 mg total) by mouth daily Active insulin lispro (HumaLOG) 100 unit/mL injectionIndi cations:type 2 diabetes mellitus Inject 12 Units under the skin 3 (three) times a day before meals Inject 15 units by SC route if BS >200 with meals and 19 units if <200 max 36 units per day Active pantoprazole DR (PROTONIX) 20 mg EC tablet Take 1 tablet (20 mg total) by mouth daily Active simvastatin (ZOCOR) 40 mg tablet Take 1 tablet (40 mg total) by mouth nightly Active ergocalcifero l, vitamin D2, 400 unit tablet Take 400 Units by mouth daily. Active solifenacin (VESIcare) 5 mg tablet Take 1 tablet (5 mg total) by mouth daily Active ascorbate calcium-biofl avonoid 1,000-200 mg tablet Take by mouth. Activ e ferrous sulfate 325 mg (65 mg of elemental iron) tabletIndicat ions:Iron Deficiency Anemia Take 1 tablet (325 mg total) by mouth daily with breakfast Acti ve ONETOUCH DELICA LANCETS 33 gauge misc Use to check blood sugars 4 times a day 017 Active TRUEPLUS INSULIN 1 mL 31 gauge x 5/16 syringeIndica tions:Type 2 diabetes mellitus with hyperglycemia , with long-term current use of insulin ([facility]) 019 Active blood-glucose meter kitIndication s:Type 2 diabetes mellitus with hyperglycemia , with long-term current use of insulin ([facility]) Test blood sugars four times daily DX:E11.65 insulin dependent 1 each 021 Active budesonide-fo rmoteroL (SYMBICORT) 160-4.5 mcg/actuation inhaler Symbicort 160 mcg-4.5 mcg/actuation HFA aerosol inhaler Active oxybutynin XL (DITROPAN-XL) 10 mg 24 hr tablet Take 1 tablet (10 mg total) by mouth daily 022 Active trospium XR (SANCTURA XR) 60 mg capsule,exten ded release 24hr daily Active ergocalcifero l (VITAMIN D) 50,000 unit capsule Take 1 capsule (50,000 Units total) by mouth once a week 022 Active LANTUS 100 unit/mL vial for injection Inject 85 Units under the skin nightly 90 mL 3 022 Active Additional Information Patient taking differently: 65 Unitssubcutaneous Nightly, Reported on 02/25/2023 blood glucose diagnostic (OneTouch Verio test strips) strip USE 1 STRIP TO CHECK SUGAR 4 TIMES DAILY 400 each 023 Active oxyBUTYnin XL (DITROPAN XL) 15 mg 24 hr tablet Take 1 tablet (15 mg total) by mouth daily 023 Active OneTouch Verio Reflect Meter misc USE TO TEST BLOOD SUGARS 4 TIMES DAILY 024 Active blood glucose control, high solutionIndic ations:Type 2 diabetes mellitus with hyperglycemia , with long-term current use of insulin ([facility]) To calibrate glucometer. Onetouch verio 2 each 3 024 Active metFORMIN (GLUCOPHAGE) 500 mg tabletIndicat ions:Type 2 diabetes mellitus with hyperglycemia , with long-term current use of insulin ([facility]) TAKE 1 TABLET BY MOUTH ONCE DAILY IN THE MORNING AND 2 IN THE EVENING WITH SUPPER 300 tablet 1 024 Active semaglutide (Ozempic) 2 mg/dose (8 mg/3 mL) pen injector injectionIndi cations:Type 2 diabetes mellitus with hyperglycemia , with long-term current use of insulin ([facility]) INJECT 2 MG SUBCUTANEOUSLY ONCE A WEEK 9 mL 1 024 Active Farxiga 10 mg tabletIndicat ions:Type 2 diabetes mellitus with hyperglycemia , with long-term current use of insulin ([facility]) Take 1 tablet by mouth once daily 60 tablet 024 Active losartan (COZAAR) 100 mg tabletIndicat ions:Type 2 diabetes mellitus with hyperglycemia , with long-term current use of insulin ([facility]) Take 1 tablet by mouth once daily 90 tablet 025 Active losartan (COZAAR) 100 mg tabletIndicat ions:Type 2 diabetes mellitus with hyperglycemia , with long-term current use of insulin ([facility]) Take 1 tablet by mouth once daily 90 tablet 024 2024 Discontinued Active Problems Problem Noted Date Diagnosed Date Severe obesity 10/30/2023 Class 3 severe obesity due t o excess calories with serious comorbidity and body mass index (BMI) of 40.0 to 44.9 in adult 10/30/2023 Assessment & Plan (10/30/2023 11:20 AM CDT): Chronic problem. Mrs Keith has lost almost 100# since starting Ozempic. She's started going to the gym now (water aerobics, bike); uses her treadmill at home. Discussed healthy diet and importance of regular physical activity (20- 30min/day, 150min/wk). CKD stage 3 due to type 2 diabetes mellitus 10/10 Assessment & Plan (10/30/2023 10:57 AM CDT): Managed by Dr Mayen in [place]. Sees q3-4 mos. NOV 03/2023. Currently taking Farxiga 10mg daily as well as Losartan 100mg daily Last creat/GFR: 08/06/22 GFR=47, CR=1.29. Will update labs today. Does not mychart. Verified phone #/address to contact re: results. Assessment & Plan (02/25/2023 9:55 AM WOOL SPOTTER): Managed by Dr Mayen in [place]. Sees q3-4 mos. NOV 03/2023. Currently taking Farxiga 10mg daily as well as Losartan 100mg daily Last creat/GFR: 08/06/22 GFR=47, CR=1.29. Assessment & Plan (11/07/2022 1:48 PM CDT): Managed by Dr Mayen in [place]. Currently taking Farxiga 10mg daily as well as Losartan 100mg daily Abscess of buttock 05/06/2019 Assessment & Plan (05/06/2019 11:02 AM WOOL SPOTTER): Referred to would care center at [facility] Combined hyperlipidemia asso ciated with type 2 diabetes mellitus 04/02/2018 Assessment & Plan (10/30/2023 10:57 AM CDT): Chronic problem. Controlled on current Simvastatin 40mg. Last lipid panel: 08/06/22 LDL=29, SQ=305. Will update labs today. Does not mychart. Verified phone #/address to contact re: results. Assessment & Plan (02/25/2023 9:39 AM WOOL SPOTTER): Chronic problem. Controlled on current Simvastatin 40mg. Last lipid panel: 08/06/22 LDL=29, XS=493. Assessment & Plan (11/07/2022 1:25 PM CDT): Chronic problem. Controlled on current Simvastatin 40mg. Last lipid panel: 08/06/22 LDL=29, KZ=427. Assessment & Plan (08/06/2022 2:51 PM CDT): Chronic, well controlled Low fat Low cholesterol diet Exercise Continue statin therapy Update lipid profile Assessment & Plan (03/07/2022 1:20 PM WOOL SPOTTER): Chronic problem. On statin therapy, no changes. Assessment & Plan (09/13/2021 1:40 PM CDT): Well controlled on current regimen Continue simvastatin Assessment & Plan (05/10/2021 2:38 PM WOOL SPOTTER): Chronic, well controlled Continue current meds Check lipid profile Assessment & Plan (09/28/2020 9:31 AM CDT): Goal of treatment , LDL cholesterol less than 100 ( less than 70 in patients with history of heart attacks and / or strokes ) Non HDL cholesterol ( total cholesterol minus HDL cholesterol ) goal less than 130 ( less than 100 in patients with history of heart attacks and / or strokes ) Low cholesterol, low fat diet was discussed and advised. Daily exercise Continue Simvastatin Assessment & Plan (06/08/2020 9:02 AM CDT): LDL 46. At goal on current medications. Continue statin therapy. Assessment & Plan (04/09/2020 1:43 PM WOOL SPOTTER): At goal on current medications. Continue statin therapy. Assessment & Plan (11/30/2019 3:14 PM CDT): Goal of treatment , LDL cholesterol less than 100 ( less than 70 in patients with history of heart attacks and / or strokes ) NonHDL cholesterol ( total cholesterol minus HDL cholesterol ) goal less than 130 ( less than 100 in patients with history of heart attacks and / or strokes ) Low cholesterol, low fat diet was discussed and advised. Daily exercise On statin therapy with Simvastatin Assessment & Plan (08/26/2019 1:23 PM CDT): Check lipid panel Assessment & Plan (05/06/2019 11:01 AM WOOL SPOTTER): Goal of treatment , LDL cholesterol less than 100 ( less than 70 in patients with history of heart attacks and / or strokes ) NonHDL cholesterol ( total cholesterol minus HDL cholesterol ) goal less than 130 ( less than 100 in patients with history of heart attacks and / or strokes ) Low cholesterol, low fat diet was discussed and advised. Daily exercise On statin therapy Assessment & Plan (10/13/2018 2:31 PM CDT): Goal of treatment , LDL cholesterol less than 100 ( less than 70 in patients with history of heart attacks and / or strokes ) NonHDL cholesterol ( total cholesterol minus HDL cholesterol ) goal less than 130 ( less than 100 in patients with history of heart attacks and / or strokes ) Low cholesterol, low fat diet was discussed and advised. Daily exercise On statin therapy Assessment & Plan (04/02/2018 2:31 PM WOOL SPOTTER): Goal of treatment , LDL cholesterol less than 100 ( less than 70 in patients with history of heart attacks and / or strokes ) NonHDL cholesterol ( total cholesterol minus HDL cholesterol ) goal less than 130 ( less than 100 in patients with history of heart attacks and / or strokes ) Low cholesterol, low fat diet was discussed and advised. Daily exercise On statin therapy Check lipid profile Hypertension associated with diabetes 02/06/2017 Assessment & Plan (10/30/2023 10:57 AM CDT): Chronic problem. Controlled on current losartan 100mg daily. Will update labs today. Does not mychart. Verified phone #/address to contact re: results. Assessment & Plan (02/25/2023 9:39 AM WOOL SPOTTER): Chronic problem. Controlled on current losartan 100mg daily. Assessment & Plan (11/07/2022 1:25 PM CDT): Chronic problem. Controlled on current losartan 100mg daily. Assessment & Plan (08/06/2022 2:50 PM CDT): Chronic, well controlled Importance of low salt diet and exercise were discussed Continue current meds Update MA, GFR Assessment & Plan (03/07/2022 1:20 PM WOOL SPOTTER): Controlled on current medications, no changes. Assessment & Plan (09/13/2021 1:40 PM CDT): Chronic, well controlled Continue current medications Assessment & Plan (05/10/2021 2:38 PM WOOL SPOTTER): Chronic, well controlled Continue current meds Check MA Assessment & Plan (09/28/2020 9:30 AM CDT): Goal blood pressure is less than 140/85 Low salt diet The importance of daily aerobic exercise was also emphasized. Continue current meds, including JUDITH-I or ARB, e.g. Losartan Assessment & Plan (06/08/2020 9:02 AM CDT): Controlled on current medications. Continue plan. Assessment & Plan (04/09/2020 1:42 PM WOOL SPOTTER): Controlled on current medications. Continue plan. Assessment & Plan (11/30/2019 3:13 PM CDT): Diet and exercise Low salt diet Continue current Assessment & Plan (08/26/2019 1:23 PM CDT): Controlled on current medications. Continue plan. Assessment & Plan (05/06/2019 11:01 AM WOOL SPOTTER): Goal blood pressure is less than 140/85 Low salt diet recommended Daily aerobic exercise Continue current meds, including JUDITH-I or ARB Assessment & Plan (10/13/2018 2:31 PM CDT): Goal blood pressure is less than 140/85 Low salt diet recommended Daily aerobic exercise Continue current meds, including JUDITH-I or ARB with Benicar Assessment & Plan (04/02/2018 2:32 PM WOOL SPOTTER): Goal blood pressure is less than 140/85 Low salt diet recommended Daily aerobic exercise Continue current meds, including JUDITH-I or ARB Assessment & Plan (05/08/2017 11:48 AM WOOL SPOTTER): Goal blood pressure is less than 140/85 Low salt diet recommended Daily aerobic exercise Continue current meds, including JUDITH-I or ARB Assessment & Plan (02/06/2017 9:56 AM WOOL SPOTTER): Controlled on current medications. Type 2 diabetes mellitus wit h hyperglycemia, with long-term current use of insulin 09/05/2016 Assessment & Plan (10/30/2023 11:18 AM CDT): Chronic problem. A1c at goal (5.6%). having frequent lows. Never changed insulin as below. Again instructed on below changes. Drop meal time insulin to 8 units three times daily with meals. Don't take the humalog before meals if blood sugar less than 110 & a light carb meal. Aware that she may need to decrease even more if lows continue after dinner. Continue to lower your lantus by 2 units weekly for fasting morning blood sugar 110-130. Current medications: Metformin 500mg with breakfast, 1000mg with dinner Farxiga 10mg daily Ozempic 2mg weekly Lantus 65 units nightly Humalog 8 units three times daily with meals if under 200, if over 200: 12 units Will update labs today. Does not mychart. Verified phone #/address to contact re: results. DM eye [facility] (06/2022[facility] . Letter sent to get copy of report. Strive for regular exercise (30min most days) and diet (get at least 4-5 servings of fruit and veggies daily, avoid processed foods, increase lean protein intake and decrease carb portions as well as fruit juices, regular soda & desserts). Watch carbs and simple sugars. Check the blood sugar. Check the feet daily for skin breakdown and infection. Assessment & Plan (02/25/2023 9:58 AM WOOL SPOTTER): Chronic problem. A1c at goal (5.9%) but having frequent lows (2x/wk--50s). Drop meal time insulin to 8 units three times daily with meals. Don't take the humalog before meals if blood sugar less than 110 & a light carb meal. Aware that she may need to decrease even more if lows continue after dinner. Continue to lower your lantus by 2 units weekly for fasting morning blood sugar 110-130. Current medications: Metformin 500mg with breakfast, 1000mg with dinner Farxiga 10mg daily Ozempic 2mg weekly Lantus 65 units nightly Humalog 8 units three times daily with meals if under 200, if over 200: 12 units UTD on labs. UTD on DM eye exam (06/2022) Strive for regular exercise (30min most days) and diet (get at least 4-5 servings of fruit and veggies daily, avoid processed foods, increase lean protein intake and decrease carb portions as well as fruit juices, regular soda & desserts). Watch carbs and simple sugars. Check the blood sugar. Check the feet daily for skin breakdown and infection. Assessment & Plan (11/07/2022 1:46 PM CDT): Chronic problem. A1c at goal (6.1%) but having frequent lows (2-3x/wk). Will decrease lantus 2 units weekly until blood sugar stabilizes/no persistent hypoglycemia. Current medications: Metformin 500mg with breakfast, 1000mg with dinner Farxiga 10mg daily Ozempic 2mg weekly Lantus 85 units nightly Humalog 12 units three times daily with meals if under 200, if over 200: 20units UTD on labs. Recent DM eye exam 06/2022 [facility] in . Letter sent to get copy of report. Strive for regular exercise (30min most days) and diet (get at least 4-5 servings of fruit and veggies daily, avoid processed foods, increase lean protein intake and decrease carb portions as well as fruit juices, regular soda & desserts). Watch carbs and simple sugars. Check the blood sugar. Check the feet daily for skin breakdown and infection. Assessment & Plan (08/06/2022 2:51 PM CDT): Hba1c was Lab Results Component Value Date HGBA1C 6.3 08/06/2022 today, indicating adequate DM control wth hypoglycemia Goal Hba1c and blood glucose explained Diet and exercise were advised Prevention and treatment of hyypoglcyemia were discussed with the patient Blood glucose monitoring : ac and hc Adjustment to medications: Stop Glucotrol Increase Ozempic to 2 mg weekly Continue Lantus Humalog Farxiga and Metformin Assessment & Plan (03/07/2022 1:35 PM WOOL SPOTTER): Chronic problem, improving. Will try switching Bydureon to Ozempic and increasing to 1 mg for more weight benefit. She would probably benefit from Mounjaro when it becomes available on Medicare. If any low blood sugars call so we can adjust insulin. Assessment & Plan (09/13/2021 1:40 PM CDT): Hba1c was Lab Results Component Value Date HGBA1C 7.3 09/13/2021 today, indicating suboptimal DM control with some hypoglycemia Goal Hba1c and blood glucose explained Diet and exercise were advised Prevention and treatment of hyypoglcyemia were discussed with the patient I advised the patient to cut the Humalog morning dose in half if she knows that she is going to get busy that morning Blood glucose monitoring : Restart CGM with Dexcom Adjustment to medications: Continue current regimen Assessment & Plan (05/10/2021 2:17 PM WOOL SPOTTER): Hba1c was Lab Results Component Value Date HGBA1C 7.7 05/10/2021 today, indicating suboptimal DM control Goal Hba1c and blood glucose explained Diet and exercise were advised Prevention and treatment of hyypoglcyemia were discussed with the patient Blood glucose monitoring : start DEXCOM Adjustment to medications: stop glucotrol Assessment & Plan (09/28/2020 9:29 AM CDT): Hba1c was Lab Results Component Value Date HGBA1C 7.0 09/28/2020 today, indicating adequate DM control with some hypoglycemia Goal blood sugars in the 120-150 range , with Hb1c under 7.0 % was explained 1800 calorie, consistent carb diet recommended. No more than 30-45 grams of carbs per meal recommended, as well as avoiding high concentrated sweet drinks . 25-45 min daily exercise, combining both aerobic and resistance exercise recommended. The need to monitor blood glucose before meals and bedtime was discussed. Prevention and treatment of hyypoglcyemia discussed. Lower Lantus to 85 units Assessment & Plan (06/30/2020 10:30 AM CDT): A1c 7.8. Start Farxiga 10 mg daily.Schedule appt with speech language pathologist to review meal plan. Assessment & Plan (04/09/2020 2:01 PM WOOL SPOTTER): A1c 7.9. Advised to adjust Lantus to keep FBG under 150. 12 units Humalog ac and reviewed to use only ac BG for correction. Consider SGLT2. Assessment & Plan (11/30/2019 3:13 PM CDT): Hba1c was Lab Results Component Value Date HGBA1C 7.5 11/30/2019 today, indicating better DM control 1800 calorie, consistent carb diet recommended. No more than 30-45 grams of carbs per meal recommended, as well as avoiding high concentrated sweet drinks . 25-45 min daily exercise, combining both aerobic and resistance exercise recommended. The need to monitor blood glucose before meals and bedtime was discussed. Prevention and treatment of hyypoglcyemia discussed. Insulin dose: Continue current regimen Continue Metformin , Glucotrol and Byduyreon Assessment & Plan (08/26/2019 1:35 PM CDT): A1c worsening to 8.3. Elevated FBG may be d/t Philomena phenomenon. Increase Lantus to 92 units. Increase the second dose of metformin to 2 tablets. Based on the lab results we may need to go back to one tablet. Will order CMP. Advised to send in BG log after 2 weeks so that pattern can be evaluated. Continue to focus on diet and exercise. Provided with new meter. Assessment & Plan (05/06/2019 11:01 AM WOOL SPOTTER): Hba1c was Lab Results Component Value Date HGBA1C 7.9 05/06/2019 today, indicating Sub-optimal DM control 1800 calorie, consistent carb diet recommended. No more than 30-45 grams of carbs per meal recommended, as well as avoiding high concentrated sweet drinks . 25-45 min daily exercise, combining both aerobic and resistance exercise recommended. The need to monitor blood glucose before meals and bedtime was discussed. Prevention and treatment of hyypoglcyemia discussed. Insulin dose: Continue current Will request DEXCOM Assessment & Plan (10/13/2018 2:30 PM CDT): Hba1c was Lab Results Component Value Date HGBA1C 8.5 % 10/13/2018 today, indicating inadequate DM control 1800 calorie, consistent carb diet recommended 25-45 min daily exercise, combining both aerobic and resistance exercise recommended. The need to monitor blood glucose before meals and bedtime was discussed. Dose of basal and prandial insulin adjusted as follows: Prevention and treatment of hyypoglcyemia discussed. Focus on diet and exercise Assessment & Plan (08/11/2018 1:58 PM CDT): Your Hba1c today was: Lab Results Component Value Date HGBA1C 9.5 % 08/11/2018 meaning a 3 month average sugar of : 230 Your goal hba1c is under 7.0 to prevent resident service coordinator diabetes complications ( eye , kidney and nerve damage ) . Your goal sugars are in the 90-130 range Exercise recommendations: It is recommended that you do daily aerobic ( walking, riding a bike, swimming ) and resistance exercises ( light weight lifting, resistance band stretching ) for at least 30 minutes , most days of the week. If you can not walk, chair exercises for 10-15 min a day would help tremendously. As little as 15-20 minutes exercise , in one or two sessions a day, is still very helpful to improve your diabetes control . Diet recommendations: Eat small portion meals, trying not to consume more than 1800 calories a day . Try to eat not more than than 2 servings of carbs ( starches ) wiith your meals. Avoid soft drinks, including regular sodas , fruit juices and sweetened tea. Drink water instead. Eat plenty of green and leafy vegetables, including salads. Medications: Take your medications regularly. Setting phone alarms can help . Keep your medication on the kitchen dinner table, by the bedside table or by the sink where they are visible to you. If you are taking insulin : the insulin that you are currently using does not need to be refrigerated. Keep it where you can see it . Monitor your sugar levels with finger sticks regularly and keep a log sheet or book. Bring your sugar meter and /or a log book or log sheet to every office visit. Take Lantus, 60 units twice a Day, before bedtime and in the mornings. Take Humalog, 20 units with breakfast and dinner For sugars over 200, take 25 units Over 300, take 30 units Restart Metformin, 500 mg twice a day with meals Have the report of blood test done tomorrow forward to me. Assessment & Plan (04/02/2018 2:30 PM WOOL SPOTTER): Hba1c was Lab Results Component Value Date HGBA1C 9.2 04/02/2018 today, indicating very poor, worsening DM control 1800 calorie, consistent carb diet recommended 25-45 min daily exercise, combining both aerobic and resistance exercise recommended. The need to monitor blood glucose before meals and bedtime was discussed. Dose of basal and prandial insulin adjusted as follows: no changes now Need to work on diet and exercise !! Prevention and treatment of hyypoglcyemia discussed. Assessment & Plan (11/06/2017 11:44 AM CDT): Your Hba1c today was: Lab Results Component Value Date HGBA1C 9.0 11/06/2017 meaning a 3 month average sugar of : 214 Your goal hba1c is under 7.0 to prevent penitentiary diabetes complications ( eye , kidney and nerve damage ) . Your goal sugars are in the 90-130 range Daily aerobic ( walking, riding a bike, swimming ) and resistance exercises ( light weight lifting, resistance band stretching ) for at least 30 minutes is recommended If you can not walk, chair exercises is very acceptable. As little as 15-20 minutes exercise , in one or two sessions a day, is still very helpful and will help to improve your diabetes control . Eat small portion meals, no more than 1800 calories Diet Try to eat not more than than 2-3 servings of carbs ( starches ) wiith your meals. Avoid soft drinks, including regular sodas , fruit juices and sweetened tea. Drink water instead. Eat plenty of green and leafy vegetables, including salads. Take your medications regularly,including your insulin injections. Monitor your sugar levels with finger sticks regularly and keep a log sheet or book. Increase Lantus to 90 units at bedtime Take Humalog, 15 units with meals For sugars over 200, take 18 units. Assessment & Plan (05/08/2017 11:47 AM WOOL SPOTTER): Hba1c was 7.1 today, indicating adequate DM control 1800 calorie, consistent carb diet recommended 30 min daily exercise, combining both aerobic and resistance exercise is strongly recommended and needed as part of diabetes management plan. The need to monitor blood glucose before meals and bedtime was discussed. Take prandial insulin before meals based on carb intake and blood glucose readings. Prevention and treatment of hyypoglcyemia discussed. Assessment & Plan (02/06/2017 9:59 AM WOOL SPOTTER): A1c 8.4. Still too high. Increase Lantus to 78, increase Humalog 12 units if under 200 and 14 units if over 200. Concept of insulin resistance discussed. Continue with exercise program but needs to focus on diet as well. Follow up with Lars Diggs and [facility] weight loss surgery Assessment & Plan (10/25/2016 3:09 PM CDT): Increase Lantus to 67 unit to reach FBG for FBG goal 150 but not under 100. Humalog 10 before dinner and 12 if sugar over 200. To check BG prior to exercise and have snack if BG < 130 Assessment & Plan (09/05/2016 2:24 PM CDT): Hba1c was 8.5 today, indicating adequate DM control 1800 calorie, consistent carb diet recommended 30 min daily aerobic and resistance exercise recommended Foot care discused. Prevention and treatment of hyypoglcyemia discussed. Check your sugars before Breakfast and dinner Lantus 65 units at bedtime Humalog, 8 units before breakfast and dinner For sugars over 200, take 12 units Start Bydureon once a week Fax sugar logs weekly Morbid obesity due to excess calories 09/05/2016 Assessment & Plan (11/06/2017 12:25 PM CDT): Diet and exercise were discussed. 1200 Calorie diet advised 45-60 min aerobic / resistance exercise most days of the week recommended. Bariatric surgery medically indicated Information for the [facility] Assessment & Plan (09/05/2016 1:57 PM CDT): Low calorie diet, Daily aerobic and strength exercise recommended. Resolved Problems Problem Noted Date Diagnosed Date Resolved Date Body mass index 40.0-44.9, adult (CMS/[facility]) 10/30/2023 10/30/2023 Morbid (severe) obesity due to excess calories 03/07/2022 11/07/2022 Assessment & Plan (03/07/2022 1:36 PM WOOL SPOTTER): Chronic problem. Start Ozempic. Work on lifestyle. Body mass index (BMI) 50.0-59.9, adult 03/07/2022 10/30/2023 Hyperlipidemia 02/06/2017 02/25/2023 Assessment & Plan (05/08/2017 11:48 AM WOOL SPOTTER): Goal of treatment , LDL cholesterol less than 100 ( less than 70 in patients with history of heart attacks and / or strokes ) NonHDL cholesterol ( total cholesterol minus HDL cholesterol ) goal less than 130 ( less than 100 in patients with history of heart attacks and / or strokes ) Low cholesterol, low fat diet was discussed and advised. Daily exercise On statin therapy Assessment & Plan (02/06/2017 9:56 AM WOOL SPOTTER): Check lipid panel. BMI 50.0-59.9, adult 09/05/2016 023 Assessment & Plan (06/08/2020 9:01 AM CDT): Importance of following diet and exercising discussed. Assessment & Plan (04/09/2020 1:42 PM WOOL SPOTTER): Importance of following diet and exercising discussed. Assessment & Plan (08/26/2019 1:23 PM CDT): Importance of following diet and exercising discussed. Assessment & Plan (10/25/2016 3:07 PM CDT): Bariatric surgery discussed. She will callPiper Anderson or [facility] to attend information program. Social History Tobacco Use Types Packs/Day Years Used Date Smoking Tobacco: Former Cigarettes Q uit: 03/10/2006 Smokeless Tobacco: Never Alcohol Use Standard Drinks/Week Comments No 0 (1 standard drink = 0.6 oz pur e alcohol) PHQ-2 Answer Date Recorded PHQ-2 Total Score (If total score is 3 or more points, staff should administer the PHQ-9) 0 08/06/2022 Comments Unknown Sex and Gender Information Value Date Recorded Sex Assigned at Not on file Legal Sex Female 7:27 PM WOOL SPOTTER Gender Identity Not on file Sexual Orientation Not on file Last Filed Vital Signs Vital Sign Reading Time Taken Comments Blood Pressure 120/66 10/30/2023 10:42 AM CDT Pulse 90 10/30/2023 10:42 AM CDT Temperature - - Respiratory Rate 18 10/30/2023 10:42 AM CDT Oxygen Saturation - - Inhaled Oxygen Concentration - - Weight 115.7 kg (255 lb) 10/30/2023 10:42 AM CDT Height 165.1 cm (5' 5 ) 10/30/2023 10:42 AM CDT Body Mass Index 42.43 10/30/2023 10:42 AM CDT Plan of Treatment Not on file Procedures Procedure Name Priority Date/Time Associated Diagnosis Comments ALBUMIN CREATININE RATIO, URINE Routine 10/30/2023 1:48 PM CDT Type 2 diabetes mellitus with hyperglycemia, with long-term current use of insulin (HCC) EGFR Routine 10/30/2023 11:20 AM CDT Type 2 diabetes mellitus with hyperglycemia, with long-term current use of insulin (HCC) Hypertension associated with diabetes (HCC) CKD stage 3 due to type 2 diabetes mellitus (HCC) LIPID PANEL Routine 10/30/2023 11:20 AM CDT Type 2 diabetes mellitus with hyperglycemia, with long-term current use of insulin (HCC) 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 Current interpretive data was last revised 2018. Creatinine Ur 408.4 mg/dL CHENG Comment: Interpretive Data No reference range established. Current interpretive data was last revised 2018. Albumin Creatinine Ratio, Ur 51(H) 1 - 29 mg/g CHENG Urine 10/30/2023 1:48 PM CDT 10/30/2023 7:43 PM CDT us Norishector Sanches LONG LINE TEAMSTER LAB URINE ORDERABLES Elizabeth l Result Performing Organization Address [facility] de Phone Number CHENG MUÑOZ [id number] Department [place] [address] * (ABNORMAL) eGFR (10/30/2023 11:20 AM CDT) eGFR 50(L) >=60 mL/min/1. 73 m2 Comment: Interpretive Data Reference Interval Normal ?>/= 90 mL/min/1.73m2 Mildly decreased* ? 60 - 89 mL/min/1.73m2 Mildly to moderately decreased ?45 - 59 mL/min/1.73m2 Moderately to severely decreased ??30 - 44 mL/min/1.73m2 Severely decreased ?15 - 29 mL/min/1.73m2 Kidney Failure ?< 15 ??mL/min/1.73m2 *Relative to young adult level Estimated glomerular filtration rate is determined by the 2020 CKD-EPI equation recommended by the National Kidney Foundation (A Unifying Approach to GFR Estimation: Recommendations of the NKF-ASK Task Force on Reassessing the Inclusion of Race in Diagnosing Kidney Disease, JASN 2020). The CKD-EPI equation should not be used for patients with unstable renal function and has not been validated in children and those over 70. Current interpretive data was last reviewed 2021. Blood 10/30/2023 11:2 0 AM CDT 10/30/2023 8:01 PM CDT us Noris Sanches LONG LINE TEAMSTER LAB BLOOD ORDERABLES Elizabeth l Result Performing Organization Address [facility]/State/ZIP Co de Phone Number CHENG MUÑOZ [address] [facility] Department [place] [address] * Lipid panel (10/30/2023 11:20 AM CDT) [facility] Cholesterol 101 30 - 199 mg/dL Comment: Interpretive Data Ages < or = 19 years ??Acceptable: ? <170 mg/dL ??Borderline high: ??170-199 mg/dL ??High: ? >or= 200 mg/dL Ages > or = 20 years ??Desirable: ?<200 mg/dL ??Borderline high: ??200-239 mg/dL ??High: ? >or= 240 mg/dL Literature References: 1. Expert Panel on Integrated Guidelines for Cardiovascular Health and Risk Reduction in Children and Adolescents. Pediatrics 2011;128:S213 2. NCEP Expert Panel. Circulation 2004;110:227 Current Interpretive Data was last revised on 2017. Triglycerides 91 <=149 mg/dL CHENG MUÑOZ Comment: Interpretive Data Ages < or = 9 years ??Acceptable: ? <75 mg/dL ??Borderline high: ??75-99 mg/dL ??High: ? >or= 100 mg/dL Ages 10 to 20 years ??Acceptable: ? <90 mg/dL ??Borderline high: ??90-129 mg/dL ??High: ? >or= 130 mg/dL Ages > or = 20 years ??Desirable: ?<150 mg/dL ??Borderline high: ??150-199 mg/dL ??High: ? 200-499 mg/dL ?Very high: ?? >or= 499 mg/dL Literature References: 1. Expert Panel on Integrated Guidelines for Cardiovascular Health and Risk Reduction in Children and Adolescents. Pediatrics 2011;128:S213 2. NCEP Expert Panel. Circulation 2004;110:227 Current Interpretive Data was last revised on 2017. HDL 40 >=40 mg/dL CHENG Comment: Interpretive Data Ages < or = 19 years ??Acceptable: ? >45 mg/dL ??Borderline low: ?? 40-45 mg/dL ??Low: ? <40 mg/dL Ages > or = 20 years ??Desirable: ?>or= 60 mg/dL ??Low: ? <40 mg/dL Literature References: 1. Expert Panel on Integrated Guidelines for Cardiovascular Health and Risk Reduction in Children and Adolescents. Pediatrics 2011;128:S213 2. NCEP Expert Panel. Circulation 2004;110:227 Current Interpretive Data was last revised on 2017. LDL, calculated 43 <=129 mg/dL CHENG Comment: Interpretive Data Ages < or = 19 years ??Acceptable: ? <110 mg/dL ??Borderline high: ??110-129 mg/dL ??High: ?>or= 130 mg/dL Ages > or = 20 years ??Optimal: ? <100 mg/dL ??Near optimal: ?100-129 mg/dL ??Borderline high: ?? 130-159 mg/dL ??High: ?>160 mg/dL Calculated using the Pedro LDL-C estimating equation. This equation was implemented on 2023. Prior to this date LDL-C was estimated using the Friedewald equation. Literature References: 1. Expert Panel on Integrated Guidelines for Cardiovascular Health and Risk Reduction in Children and Adolescents. Pediatrics 2011;128:S213 2. NCEP Expert Panel. Circulation 2004;110:227 3. Pedro Martinez et al. YUNG Cardiol. 2020 July 08;5(5):540-548. doi: 10.1001/jamacardio.2020.0013 Current Interpretive Data was last revised on 2023. Non-HDL Cholesterol 61 mg/dL CHENG Comment: Interpretive Data Ages < or = 19 years ??Acceptable: ?<120 mg/dL ??Borderline high: ??120-144 mg/dL ??High: ?>145 mg/dL Ages > or = 20 years ??When triglycerides are >200 mg/dL, Non-HDL cholesterol is a secondary target of ? therapy with treatment goals that are 30 mg/dL greater than the LDL cholesterol target. ? Literature References: 1. Expert Panel on Integrated Guidelines for Cardiovascular Health and Risk Reduction in Children and Adolescents. Pediatrics 2011;128:S213 2. NCEP Expert Panel. Circulation 2004;110:227 Current Interpretive Data was last revised on 2017. Chol/HDL ratio 3 CHENG MUÑOZ Blood 10/30/2023 11:2 0 AM CDT 10/30/2023 7:43 PM CDT Noris Sanches NP LAB BLOOD ORDERABLES Elizabeth l Result CHENG [address] Department [place] [address] * POCT hemoglobin A1c (10/30/2023 10:46 AM CDT) Hemoglobin A1C, POC 5.6 4.0 - 5.6 % Blood 10/30/2023 10:4 6 AM CDT Noris Sanches NP POINT OF CARE TEST ORDERA BLES Final Result * DIABETES EYE EXAM (06/13/2022 7:29 AM CDT) Historical Provider HEALTH MAINTENANCE Edited Result - Final * Screening Mammogram (04/12/2013 8:26 AM WOOL SPOTTER) Anatomical Region Laterality Modality Breast N/A Mammography 04/12/2013 8:26 AM WOOL SPOTTER Narrative 04/15/2013 2:59 PM WOOL SPOTTER JANY ROBERTSON M.D. FINAL REPORT ACC# ??Date Time ??Exam [id number] Apr 12, 2013 08:26:00 BMV [id number] [place] Screening Mamm ?? Technologist(s): Marycruz Ornelas; ; EXAMINATION: ??Mammogram Technique: Bilateral Full-Field Digital Screening Mammogram was performed. ??Views obtained: ??bilateral craniocaudal and bilateral mediolateral oblique. Computer Aided Detection was performed with Swarm Mobile 1.3 version 9.3. Mammogram Findings: The present examination has been compared to prior imaging studies performed at [facility] on 04/10/2012 and 04/10/2011. The breasts are almost entirely fat. There is no suspicious abnormality in either breast. IMPRESSION: ??Annual screening mammography is recommended. OVERALL FINAL ASSESSMENT: BI-RADS CATEGORY 1: ??Negative. Requested By: Woodrow Estrada ??May Dictated By: ?? JANY ROBERTSON M.D. ??on Apr ??2013 ??2:59P This document has been electronically signed by: JANY ROBERTSON M.D. on Apr ??2013 ??2:59P Procedure Note Provider, MD Jose - 07/06/2016 JANY ROBERTSON M.D. FINAL REPORT ACC# Date Time Exam [id number] Apr 12, 2013 08:26:00 BMV [id number] [place] Screening Mamm Technologist(s): Marycruz Ornelas; ; EXAMINATION: Mammogram Technique: Bilateral Full-Field Digital Screening Mammogram was performed. Views obtained: bilateral craniocaudal and bilateral mediolateral oblique. Computer Aided Detection was performed with Swarm Mobile 1.3 version 9.3. Mammogram Findings: The present examination has been compared to prior imaging studies performed at [facility] on 04/10/2012 and 04/10/2011. The breasts are almost entirely fat. There is no suspicious abnormality in either breast. IMPRESSION: Annual screening mammography is recommended. OVERALL FINAL ASSESSMENT: BI-RADS CATEGORY 1: Negative. Requested By: Woodrow Estrada M.D. Dictated By: JANY ROBERTSON M.D. on Apr 15 2013 2:59P This document has been electronically signed by: JANY ROBERTSON M.D. on Apr 15 2013 2:59P us Historical Provider MD INFANTE MAMMO PROCEDURES Elizabeth l Result from Last 3 Months or Most Recently Relevant to Health Maintenance Insurance MEDICARE SOLUTIONS MEDICARE SOLUTIONS Care Teams Ceramics Instructor Relationship Specialty Start Date End Date Edwardo Murillo MD PCP - General Internal Medicine 08/23/16 [place] [id number] [facility] [address] [place] [address] Consulting Physician Endocrinology Diabetes & Metabolism 10/13/18
--- OUTSIDE RECORDS SUMMARY | 2024-04-12 10:23 | XMS_ITS | Clinical Summary ---
Author Organization [facility] [employer] Address [address] [place] [address] Care Team Providers Care Home Coordinator Name Role Phone Edwardo Murillo MD Primary Care Provider [phone] Source Comments [facility] [employer],non-owned Affiliates and Associated Physician Practices is amultiple site organization consisting of ambulatory clinics and hospital sitesin [place], [place], [place] and [place]. This disclosure is being madepursuant to the Care Everywhere program and may not contain all information available regarding this patient. Last updated 17.[facility] [employer] Allergies No known active allergies Medications * Be aware that medications may not be up to date on this document. Alwaysverify current medications with the patient. Medication Sig Dispensed Refills Start Date End Date Status allopurinol (ZYLOPRIM) 100 MG tablet Take 100 mg by mouth once daily Active ascorbic acid (VITAMIN C) 125 MG TABS half tablet Take by mouth once daily Active calcitriol (ROCALTROL) 0.25 MCG capsule Take 0.25 mcg by mouth once daily Active citalopram (CELEXA) 10 MG tablet Take 10 mg by mouth once daily Active VITAMIN D, CHOLECALCIFEROL, PO Activ e ferrous sulfate 325 (65 FE) MG tablet Take 325 mg by mouth daily with food Active furosemide (LASIX) 20 MG tablet Take 20 mg by mouth once daily Active glipiZIDE (GLUCOTROL) 10 MG tablet Take 10 mg by mouth daily before breakfast Active INSULIN GLARGINE SC Activ e INSULIN LISPRO, HUMAN, SC Active olmesartan (BENICAR) 20 MG tablet Take 20 mg by mouth once daily Active pantoprazole EC (PROTONIX) 20 MG tablet Take 20 mg by mouth once daily Active simvastatin (ZOCOR) 40 MG tablet Take 40 mg by mouth at bedtime Active solifenacin (VESICARE) 5 MG tablet Take 5 mg by mouth once daily Active albuterol HFA (PROVENTIL;VENTOLIN; PROAIR) 108 (90 BASE) MCG/ACT inhalerIndications:A cute bronchitis, unspecified organism Inhale 2 puffs by mouth every 4 hours as needed for Wheezing 1 Inhaler 05/22/2017 Active benzonatate (TESSALON) 100 MG capsuleIndications:C ough Take 1 capsule by mouth 3 times daily as needed for Cough Reasons: Cough 30 capsule 05/22/2017 Active Social History Tobacco Use Types Packs/Day Years Used Date Smoking Tobacco: Former Cigarettes Q uit: 2006 Smokeless Tobacco: Never Sex and Gender Information Value Date Recorded Sex Assigned at Not on file Gender Identity Not on file Sexual Orientation Not on file Last Filed Vital Signs Vital Sign Reading Time Taken Comments Blood Pressure 118/70 05/22/2017 2:46 PM CDT Pulse 92 05/22/2017 2:46 PM CDT Temperature 36.6 ??C (97.8 ??F) 05/22/2017 2:46 PM CD T Respiratory Rate 16 05/22/2017 2:46 PM CDT Oxygen Saturation 95% 05/22/2017 2:46 PM CDT Inhaled Oxygen Concentration - - Weight 142.9 kg (315 lb) 05/22/2017 2:46 PM CDT Height 165.1 cm (5' 5 ) 05/22/2017 2:46 PM CDT Body Mass Index 52.42 05/22/2017 2:46 PM CDT Plan of Treatment Health Maintenance Due Date Last Done Comments COLOGUARD (AGES 45-75) - COL ON CA SCREENING 1959 COLON MONITORING 1959 COLONOSCOPY - COLON CA SCREENING 1959 CT COLONOGRAPHY - COLON CA SCREENING 1959 Colorectal Cancer Screening 1959 FIT - COLON CA SCREENING 1959 FLEX SIG - COLON CA SCREENING 1959 MAMMOGRAM 1959 PAP SMEAR 1959 HIV SCREENING 10/03/1974 HEPATITIS C SCREENING 09/29/1977 DTAP/TDAP/TD VACCINES (1 - Tdap) 10/03/1978 PNEUMOCOCCAL VACCINE 50+ (1 of 1 - PCV) 10/03/2009 ZOSTER VACCINE (1 of 2) 10/03/2009 SCREENING FOR DIABETES 05/22/2017 Respiratory Syncytial Virus (RSV) Vaccine Pt: or over 60 yrs (1 - Risk 60-74 years 1-dose series) 2019 COVID-19 VACCINE (2023-2 5 season) 2023 INFLUENZA VACCINE (#1) 2023 DEPRESSION SCREENING 03/10/2024 MEDICARE AWV ? CALENDAR YEAR 2024 HEPATITIS B VACCINE Aged Out No longe r eligible based on patient's age to complete this topic HIB VACCINE Aged Out No longer eligi ble based on patient's age to complete this topic HPV VACCINE Aged Out No longer eligi ble based on patient's age to complete this topic MENINGOCOCCAL (Group B) VACCINE Aged Out No longer eligible based on patient's age to complete this topic MENINGOCOCCAL VACCINE Aged Out No rissa trinity eligible based on patient's age to complete this topic PNEUMOCOCCAL VACCINE Aged Out No long er eligible based on patient's age to complete this topic Care Teams Home Coordinator Relationship Specialty Start Date End Date Edwardo Murillo MD [address] [facility] [place] [address] PCP - General Internal Medicine 05/22/17
--- OUTSIDE RECORDS SUMMARY | 2024-04-12 10:23 | XMS_ITS | Patient Health Summary ---
Author Organization [facility] Address [address] [place] [address] Care Team Providers Care Electrical Transmission Engineer Name Role Phone Edwardo Murillo MD Primary Care Provider [phone] Note from [facility],non-owned Affiliates and Associated Physician Practices is amultiple site organization consisting of ambulatory clinics and hospital sitesin [place], [place], [place] and [place]. This disclosure is being madepursuant to the Care Everywhere program and may not contain all information available regarding this patient. Last updated 17.[facility] [email or web address] Allergies No known active allergies Medications * Be aware that medications may not be up to date on this document. Alwaysverify current medications with the patient. * allopurinol (ZYLOPRIM) 100 MG tablet Take 100 mg by mouth once daily * ascorbic acid (VITAMIN C) 125 MG TABS half tablet Take by mouth once daily * calcitriol (ROCALTROL) 0.25 MCG capsule Take 0.25 mcg by mouth once daily * citalopram (CELEXA) 10 MG tablet Take 10 mg by mouth once daily * VITAMIN D, CHOLECALCIFEROL, PO * ferrous sulfate 325 (65 FE) MG tablet Take 325 mg by mouth daily with food * furosemide (LASIX) 20 MG tablet Take 20 mg by mouth once daily * glipiZIDE (GLUCOTROL) 10 MG tablet Take 10 mg by mouth daily before breakfast * INSULIN GLARGINE SC * INSULIN LISPRO, HUMAN, SC * olmesartan (BENICAR) 20 MG tablet Take 20 mg by mouth once daily * pantoprazole EC (PROTONIX) 20 MG tablet Take 20 mg by mouth once daily * simvastatin (ZOCOR) 40 MG tablet Take 40 mg by mouth at bedtime * solifenacin (VESICARE) 5 MG tablet Take 5 mg by mouth once daily * albuterol HFA (PROVENTIL;VENTOLIN;PROAIR) 108 (90 BASE) MCG/ACT inhaler (Started 05/22/2017) Inhale 2 puffs by mouth every 4 hours as needed for Wheezing * benzonatate (TESSALON) 100 MG capsule(Started 05/22/2017) Take 1 capsule by mouth 3 times daily as needed for Cough Reasons: Cough Social History Tobacco Use Types Packs/Day Years [...] Mass Index 52.42 05/22/2017 2:46 PM CDT Care Teams Electrical Transmission Engineer Relationship Specialty [place] [address] [place], [place] [id number] PCP - General Internal Medicine 05/22/17
--- OUTSIDE RECORDS SUMMARY | 2024-04-12 10:23 | XMS_ITS | Continuity of Care Document ---
Author Organization [facility] Address [address] [place] [address] Phone Care Team Providers Care Director Of Medical Staff Services Name Role Phone Boyd Wilkinson Unavailable Unavailable Procedures Procedure Date Post-op Follow-up Visit Post-op Follow-up Visit Remove Cataract, Insert Lens Office/outpatient Visit, Est Echo Exam Of Eye Advance Directives Directive Yes / No Effective Date File Name No Information Encounters Encounter Description Practice Location Reason(s) For Visit Diagnoses Date Provider Providers Copied on Encounter [facility], [address], [place], [place], [id number], tel:[phone] [facility] No Information 0 Krishnasamy Boyd. Formerly [facility] [address], [facility], . tel:[phone] Referring Provider: Kiel Mendez, [address] [place], [address]. tel:[phone] [facility], [address], [place], [place], [id number], tel:[phone] [facility] No Information 0 Krishnasamy Boyd. [address], [facility], [place]. tel:[phone] Referring Provider: Kiel Mendez, [address] [place], [address]. tel:[phone] [facility], [address], [place], [place], [id number], tel:[phone] [facility] No Information 0 Krishnasamy Boyd. [address] [facility] [address], [facility], [place]. tel:[phone] Referring Provider: Kiel Mendez, [address] [place], [address]. tel:[phone] Office/outpat ient Visit, [facility] [address], [place], [place], [id number], [place] tel:[phone] [facility] No Information 0 Krishnasamy Boyd. [address], [facility], [place]. tel:[phone] Referring Provider: Kiel Mendez, [address] [place], [address]. tel:[phone] Family History Family Member Type Diagnosis Age At Onset No Information Payers Payer name Insurance type Covered green party ID Authoriza tion(s) No Information Social History Type Description Quantity Date Captured Comments Sex Female Smoking Status No Information Chief Complaint And Reason For Visit No Information Reason For Referral Reason For Referral No Information History Of Present Illness Encounter Date Complaint History Of Prese nt Illness No Information Functional Status Date Functional Assessmen t No Information Instructions Date Instruction Additional Infor mation No Information Assessments Type Assessment Date No Information Patient Care Teams Name Effective Dates (start - stop) Status Members No Information
--- OUTSIDE RECORDS SUMMARY | 2024-04-12 10:23 | XMS_ITS | Clinical Summary ---
Author Organization [facility] [place] [facility] [place] Address [address] [place] [id number] Care Team Providers Care Tunnel Elastic Operator Lockstitch Name Role Phone Edwardo Murillo MD Primary Care Provider [phone] Darrel Scott MD Unavailable Allergies No known [...] , with long-term current use of insulin ([facility]) 019 Active blood-glucose meter kitIndication s:Type 2 diabetes mellitus with hyperglycemia , with long-term current use of insulin ([facility]) Test blood sugars four times daily [...] , with long-term current use of insulin ([facility]) To calibrate glucometer. Onetouch verio 2 each 3 024 Active metFORMIN (GLUCOPHAGE) 500 mg tabletIndicat ions:Type 2 diabetes mellitus with hyperglycemia , with long-term current use of insulin ([facility]) TAKE 1 TABLET BY MOUTH ONCE [...] AM CDT): Managed by Dr Mayen in [place]. Sees q3-4 mos. NOV 03/2023. Currently taking Farxiga 10mg daily as well as Losartan 100mg daily Last creat/GFR: 08/06/22 GFR=47, CR=1.29. Will update labs today. Does not mychart. Verified phone #/address to contact re: results. Assessment & Plan (02/25/2023 9:55 AM BREAKER OILER): Managed by Dr Mayen in [place]. Sees q3-4 mos. NOV 03/2023. Currently taking Farxiga 10mg daily as well as Losartan 100mg daily Last creat/GFR: 08/06/22 GFR=47, CR=1.29. Assessment & Plan (11/07/2022 1:48 PM CDT): Managed by Dr Mayen in [place]. 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 Controlled on current Simvastatin 40mg. Last lipid panel: 08/06/22 LDL=29, VI=935. Will update labs today. Does not mychart. Verified phone #/address to contact re: results. Assessment & Plan (02/25/2023 9:39 AM BREAKER OILER): Chronic problem. Controlled on current Simvastatin 40mg. Last lipid panel: 08/06/22 LDL=29, FS=677. Assessment & Plan (11/07/2022 1:25 PM CDT): Chronic problem. Controlled on current Simvastatin 40mg. Last lipid panel: 08/06/22 LDL=29, DO=961. Assessment & Plan (08/06/2022 2:51 PM CDT): Chronic, well controlled Low fat Low cholesterol diet Exercise Continue statin therapy Update lipid profile Assessment & Plan (03/07/2022 1:20 PM BREAKER OILER): Chronic problem. On statin therapy, no changes. Assessment & Plan (09/13/2021 1:40 PM CDT): Well controlled on current regimen Continue simvastatin Assessment & Plan (05/10/2021 2:38 PM BREAKER OILER): Chronic, well controlled Continue current meds Check [...] therapy. Assessment & Plan (04/09/2020 1:43 PM BREAKER OILER): At goal on current medications. Continue statin [...] panel Assessment & Plan (05/06/2019 11:01 AM BREAKER OILER): Goal of treatment , LDL cholesterol less [...] therapy Assessment & Plan (04/02/2018 2:31 PM BREAKER OILER): Goal of treatment , LDL cholesterol less [...] results. Assessment & Plan (02/25/2023 9:39 AM BREAKER OILER): Chronic problem. Controlled on current losartan 100mg daily. Assessment & Plan (11/07/2022 1:25 PM CDT): Chronic problem. Controlled on current losartan 100mg daily. Assessment & Plan (08/06/2022 2:50 PM CDT): Chronic, well controlled Importance of low salt diet and exercise were discussed Continue current meds Update MA, GFR Assessment & Plan (03/07/2022 1:20 PM BREAKER OILER): Controlled on current medications, no changes. Assessment & Plan (09/13/2021 1:40 PM CDT): Chronic, well controlled Continue current medications Assessment & Plan (05/10/2021 2:38 PM BREAKER OILER): Chronic, well controlled Continue current meds Check MA Assessment & Plan (09/28/2020 9:30 AM CDT): Goal blood pressure is less than 140/85 Low salt diet The importance of daily aerobic exercise was also emphasized. Continue current meds, including JUDITH-I or ARB, e.g. Losartan Assessment & Plan (06/08/2020 9:02 AM CDT): Controlled on current medications. Continue plan. Assessment & Plan (04/09/2020 1:42 PM BREAKER OILER): Controlled on current medications. Continue plan. Assessment & Plan (11/30/2019 3:13 PM CDT): Diet and exercise Low salt diet Continue current Assessment & Plan (08/26/2019 1:23 PM CDT): Controlled on current medications. Continue plan. Assessment & Plan (05/06/2019 11:01 AM BREAKER OILER): Goal blood pressure is less than 140/85 Low salt diet recommended Daily aerobic exercise Continue current meds, including JUDITH-I or ARB Assessment & Plan (10/13/2018 2:31 PM CDT): Goal blood pressure is less than 140/85 Low salt diet recommended Daily aerobic exercise Continue current meds, including JUDITH-I or ARB with Benicar Assessment & Plan (04/02/2018 2:32 PM BREAKER OILER): Goal blood pressure is less than 140/85 Low salt diet recommended Daily aerobic exercise Continue current meds, including JUDITH-I or ARB Assessment & Plan (05/08/2017 11:48 AM BREAKER OILER): Goal blood pressure is less than 140/85 Low salt diet recommended Daily aerobic exercise Continue current meds, including JUDITH-I or ARB Assessment & Plan (02/06/2017 9:56 AM BREAKER OILER): Controlled on current medications. Type 2 diabetes [...] DM [facility]06/2022[facility] Letter sent to [...] infection. Assessment & Plan (02/25/2023 9:58 AM BREAKER OILER): Chronic problem. A1c at goal (5.9%) but [...] Metformin Assessment & Plan (03/07/2022 1:35 PM BREAKER OILER): Chronic problem, improving. Will try switching Bydureon [...] regimen Assessment & Plan (05/10/2021 2:17 PM BREAKER OILER): Hba1c was Lab Results Component Value Date [...] Start Farxiga 10 mg daily.Schedule appt with lock tender chief operator to review meal plan. Assessment & Plan (04/09/2020 2:01 PM BREAKER OILER): A1c 7.9. Advised to adjust Lantus to [...] meter. Assessment & Plan (05/06/2019 11:01 AM BREAKER OILER): Hba1c was Lab Results Component Value Date [...] goal hba1c is under 7.0 to prevent vermin exterminator diabetes complications ( eye , kidney and [...] me. Assessment & Plan (04/02/2018 2:30 PM BREAKER OILER): Hba1c was Lab Results Component Value Date [...] goal hba1c is under 7.0 to prevent senior care diabetes complications ( eye , kidney and [...] units. Assessment & Plan (05/08/2017 11:47 AM BREAKER OILER): Hba1c was 7.1 today, indicating adequate DM [...] discussed. Assessment & Plan (02/06/2017 9:59 AM BREAKER OILER): A1c 8.4. Still too high. Increase Lantus [...] Resolved Date Body mass index 40.0-44.9, adult (CMS/[facility]) 10/30/2023 10/30/2023 Morbid (severe) obesity due to excess calories 03/07/2022 11/07/2022 Assessment & Plan (03/07/2022 1:36 PM BREAKER OILER): Chronic problem. Start Ozempic. Work on lifestyle. Body mass index (BMI) 50.0-59.9, adult 03/07/2022 10/30/2023 Hyperlipidemia 02/06/2017 02/25/2023 Assessment & Plan (05/08/2017 11:48 AM BREAKER OILER): Goal of treatment , LDL cholesterol less [...] therapy Assessment & Plan (02/06/2017 9:56 AM BREAKER OILER): Check lipid panel. BMI 50.0-59.9, adult 09/05/2016 023 Assessment & Plan (06/08/2020 9:01 AM CDT): Importance of following diet and exercising discussed. Assessment & Plan (04/09/2020 1:42 PM BREAKER OILER): Importance of following diet and exercising discussed. Assessment & Plan (08/26/2019 1:23 PM CDT): Importance of following diet and exercising discussed. Assessment & Plan (10/25/2016 3:07 PM CDT): Bariatric surgery discussed. She will call[facility]per Anderson or [facility] to attend information program. Surgical History Surgery Date Site/Laterality Comments CHOLECYSTECTOMY Gallbladder removed OTHER SURGICAL HISTORY Perirectal abscess removed Medical History Medical History Date Comments Hypertension Hypertension Diabetes mellitus (HCC) Diabetes Type 2 diabetes mellitus (HCC) Kidney disease, chronic, stage III (GFR 30-59 ml /min) (HCC) Anemia Family History Medical History Relation Name Comments Diabetes Brother 1 Diabetes Brother 2 Diabetes Brother 3 Diabetes Brother 4 Diabetes Father Diabetes mellit us; Heart disease Father Heart disease; Hypertension Father Hypertension; Diabetes Mother Heart failure Mother Hypertension Mother Diabetes Paternal Grandfather Diabetes Paternal Grandmother Diabetes Sister Relation Name Status Comments Brother 1 Brother 2 Brother 3 Brother 4 Father Maternal Grandfather Maternal Grandmother Mother Paternal Grandfather Paternal Grandmother Sister Social History Tobacco Use Types Packs/Day Years [...] on file Legal Sex Female 7:27 PM BREAKER OILER Gender Identity Not on file Sexual Orientation Not on file Obstetrics History Last Filed Vital Signs Vital Sign Reading [...] 10/30/2023 10:42 AM CDT Plan of Treatment Health Maintenance Due Date Last Done Comments Cervical Cancer Screening 1960 Colon Cancer Screening-Colonoscopy 1960 Hepatitis C Screening 1960 Hepatitis B Screening 10/03/1977 Regular Well Visit/Exam 18-64 10/03/1977 Zoster Vaccine (1 of 2) 10/03/2009 Breast Cancer Screening-Mammogram 04/12/2014 014, 04/10/2012 Pneumococcal vaccine <65 (2 of 2 - PCV) 08/03/2015 08/02/2014 Depression Screening 08/07/2023 08/06/2022, 05/10/2021, 09/28/2020, Additional history exists Influenza Vaccine (#1) 2023 , 12/16/2019, 01/14/2019, Additional history exists Hemoglobin A1C 05/01/2024 10/30/2023, 02/07, 11/07/2022, Additional history exists Dilated Eye Exam 06/13/2024 06/13/2022, 08/04/2020 DTaP/Tdap/Td Vaccine (2 - Td or Tdap) 08/02/2024 08/02/2014 Albumin Creatinine Ratio, Urine 10/29/2024 10/30/2023, 08/06/2022, 05/10/2021, Additional history exists Foot Exam 10/29/2024 10/30/2023, 10/10, 09/13/2021, Additional history exists Lipid Panel 10/29/2024 10/30/2023, 07/10, 05/10/2021, Additional history exists eGFR 10/29/2024 10/30/2023, 07/10, 05/10/2021, Additional history exists Procedures Procedure Name Priority Date/Time Associated Diagnosis [...] SCREENING MAMMOGRAM Routine 04/12/2013 8 :26 AM BREAKER OILER from Last 3 Months or Most Recently Relevant to Health Maintenance Results * (ABNORMAL) Albumin Creatinine Ratio, Urine (10/30/2023 1:48 PM CDT) Albumin Ur 206.9 mg/L Comment: Interpretive Data No reference range established. Current interpretive data was last revised 2018. Creatinine Ur 408.4 mg/dL CHENG MUÑOZ Comment: Interpretive Data No reference range established. Current interpretive data was last revised 2018. Albumin Creatinine Ratio, Ur 51(H) 1 - 29 mg/g CHENG Urine 10/30/2023 1:48 PM CDT 10/30/2023 7:43 PM CDT us Noris Sanches RIG BUILDER LAB URINE ORDERABLES Elizabeth skinny Result CHENG [id number] [facility] [place] [address] * (ABNORMAL) eGFR (10/30/2023 11:20 AM CDT) [...] 10/30/2023 8:01 PM CDT us Noris Sanches RIG BUILDER LAB BLOOD ORDERABLES Elizabeth babb Result CHENG MUÑOZ [id number] [facility] [place] [address] * Lipid panel (10/30/2023 11:20 AM CDT) Cholesterol 101 30 - 199 mg/dL Comment: [...] on 2017. HDL 40 >=40 mg/dL CHENG MUÑOZ Comment: Interpretive Data Ages [...] 2017. LDL, calculated 43 <=129 mg/dL CHENG MUÑOZ Comment: Interpretive Data Ages [...] NCEP Expert Panel. Circulation 2004;110:227 3. Pedro Bro al. YUNG Cardiol. 2020 July 08;5(5):540-548. doi: 10.1001/jamacardio.2020.0013 Current Interpretive Data was last revised on 2023. Non-HDL Cholesterol 61 mg/dL CHENG MUÑOZ Comment: Interpretive Data Ages [...] revised on 2017. Chol/HDL ratio 3 CHENG Blood 10/30/2023 11:2 0 AM CDT 10/30/2023 7:43 PM CDT Noris Sanches R[employer] BU[employer] LAB BLOOD ORDERABLES Elizabeth l Result CHENG [id number] Department of [facility] [place], [place] [id number] * POCT hemoglobin A1c (10/30/2023 10:46 AM CDT) Hemoglobin A1C, POC 5.6 4.0 - 5.6 % Blood 10/30/2023 10:4 6 AM CDT Noris Sanches RIG BUILDER POINT OF CARE TEST ORDERA BLES Final Result * HM DIABETES EYE EXAM (06/13/2022 7:29 AM CDT) Historical Provider HEALTH MAINTENANCE Edited Result - Final * Screening Mammogram (04/12/2013 8:26 AM BREAKER OILER) Anatomical Region Laterality Modality Breast N/A Mammography 04/12/2013 8:26 AM BREAKER OILER Narrative 04/15/2013 2:59 PM BREAKER OILER JANY ROBERTSON M.D. FINAL REPORT ACC# ??Date Time ??Exam [id number] Apr 12, 2013 08:26:00 BMV [id number] [place] Screening Mamm ?? Technologist(s): Marycruz Ornelas; ; EXAMINATION: ??Mammogram Technique: Bilateral Full-Field Digital Screening Mammogram was performed. ??Views obtained: ??bilateral craniocaudal and bilateral mediolateral oblique. Computer Aided Detection was performed with [employer] 1.3 version 9.3. Mammogram Findings: The present examination has been compared to prior imaging studies performed at [facility] on 04/10/2012 and 04/10/2011. The breasts are almost entirely fat. There is no suspicious abnormality in either breast. IMPRESSION: ??Annual screening mammography is recommended. OVERALL FINAL ASSESSMENT: BI-RADS CATEGORY 1: ??Negative. Requested By: Woodrow Estrada ??M.DKiet Dictated By: ?? JANY ROBERTSON M.D. ??on Apr ??2013 ??2:59P This document has been electronically signed by: JANY ROBERTSON M.D. on Apr ??2013 ??2:59P Procedure Note Provider, MD Jose - 07/06/2016 JANY ROBERTSON M.D. FINAL REPORT ACC# Date Time Exam [id number] Apr 12, 2013 08:26:00 BMV [id number] [place] Screening Mamm Technologist(s): Marycruz Ornelas; ; EXAMINATION: Mammogram Technique: Bilateral Full-Field Digital Screening Mammogram was performed. Views obtained: bilateral craniocaudal and bilateral mediolateral oblique. Computer Aided Detection was performed with [employer] 1.3 version 9.3. Mammogram Findings: The present examination has been compared to prior imaging studies performed at [facility] on 04/10/2012 and 04/10/2011. [...] Insurance MEDICARE SOLUTIONS MEDICARE SOLUTIONS Care Teams Tunnel Elastic Operator Lockstitch Relationship Specialty Start Date End Date Edwardo Murillo MD PCP - General Internal Medicine 08/23/16 [place] [id number] [address] [facility] [address] [place] [address] Consulting Physician Endocrinology Diabetes & Metabolism 10/13/18
--- OUTSIDE RECORDS SUMMARY | 2024-04-12 10:23 | XMS_ITS | Referral Summary ---
Author Organization [facility] Address [address] [facility] [place] [address] Care Team Providers Care Well Logger Name Role Phone Edwardo Murillo MD Primary Care Provider [phone] Source Comments [facility],non-owned Affiliates and Associated Physician Practices is amultiple site organization consisting of ambulatory clinics and hospital sitesin [place], [place], [place] and [place]. This disclosure is being madepursuant to the Care Everywhere program and may not contain all information available regarding this patient. Last updated 17.[facility] NealyWear Allergies No known active allergies Medications * [...] 05/22/2017 2:46 PM CDT Plan of Treatment Not on file Care Teams Well Logger Relationship Specialty Start Date End Date Edwardo Murillo MD [address] [place] [address] PCP - General Internal Medicine 05/22/17
== END 2024-04-12 09:44 | disposition home or self-care (01) ==
LOC: CHSIMG 09:46
PROVIDERS: PCP Internal Medicine; Visit Provider Internal Medicine
DX: Z78.0 Asymptomatic menopausal state (principal)
CPT/HCPCS: 77080

== ENCOUNTER 2024-09-09 15:06 | Outpatient (CLI) | payer MEDICARE, SELFPAY ==
--- NOTE | ~2024-09-09 | MM_ITS ---
EXAMINATION: MM screening leonie BI w emmy HISTORY: Screening mammogram TECHNIQUE: Craniocaudal and mediolateral oblique 3-D tomosynthesis images were obtained and synthetic 2-D images were generated. CAD analysis was submitted and interpreted. COMPARISON: No prior mammogram is available for comparison at this institution. BREAST PARENCHYMAL COMPOSITION:Not Dense. There are scattered areas of fibroglandular density. FINDINGS: No suspicious mass, calcification, or architectural distortion are identified in either annalisa ast to suggest malignancy. There has been no suspicious interval change. IMPRESSION: No mammographic evidence of malignancy. Recommend routine screening mammography in one year. BI-RADS Category 1: Negative Reviewed, dictated and finalized at location .
== END 2024-09-09 15:07 | disposition home or self-care (01) ==
LOC: MICIMG 15:07
PROVIDERS: PCP Internal Medicine; Visit Provider Internal Medicine
DX: Z12.31 Encounter for screening mammogram for malignant neoplasm of breast (principal)
CPT/HCPCS: 77063; 77067

== ENCOUNTER 2024-10-13 16:53 | Emergency (ER) | payer MEDICARE, SELFPAY ==
--- NOTE | ~2024-10-13 | CT_ITS ---
History: Fall PROCEDURE: CT cervical spine and facial bones without intravenous contrast. COMPARISON: None TECHNIQUE: Multiple contiguous axial images of the cervical spine and facial bones were performed without the ad ministration of intravenous contrast. DLP: 486 mGy-cm FINDINGS: Straightening of the normal curvature of the cervical spine is identified, likely muscular in origin. No acute fractures are present within the cervical spine. The bilateral lung apices are unremarkable. No soft tissue abnormality is appreciated The airway is unremarkable. No acute fractures are present within the facial bones. Impression: Straightening of the normal curvature of the cervical spine, likely muscular in origin. No acute fracture within the facial bones or cervical spine. Reviewed, dictated and finalized at location A. Impression: Straightening of the normal curvature of the cervical spine, likely muscular in origin. No acute fracture within the facial bones or cervical spine.
--- NOTE | ~2024-10-13 | CT_ITS ---
History: Fall PROCEDURE: CT head without contrast. COMPARISON: None TECHNIQUE: Axial imaging of the head performed from the skull base to the vertex without IV contrast. Sagittal a nd coronal reformations obtained. DLP: 605 mGy-cm FINDINGS: The ventricles are normal in size, shape and position. There is no mass, mass effect or midline shift. Bulky calcifications within the bilateral basal ganglia. There is no abnormal extra-axial fluid collection or intracranial hemorrhage. Visualized paranasal sinuses are clear. The mastoid air cells are well aerated. No acute displaced fractures within the overlying cranium. Impression: No acute intracranial hemorrhage or suspicious mass effect. Reviewed, dictated and finalized at location A. Impression: No acute intracranial hemorrhage or suspicious mass effect.
--- NOTE | ~2024-10-13 | XR_ITS ---
HISTORY: fall, pain COMPARISON: None TECHNIQUE: 3 views of the right knee were performed FINDINGS: No acute or subacute fracture. Medial and lateral tibiofemoral joint space narrowing with sclerosis is identified with osteophytic b ridging. Large suprapatellar joint effusion is identified. The infrapatellar joint space is clear. Low lying patella is present. IMPRESSION: Low lying patella with a large suprapatellar joint effusion and degenerative disease. Reviewed, dictated and finalized at location A. IMPRESSION: Low lying patella with a large suprapatellar joint effusion and d egenerative disease.
--- NOTE | ~2024-10-13 | CT_ITS ---
CLINICAL INDICATION: Fall COMPARISON: 01/17/2020. TECHNIQUE: An enhanced CT of the abdomen and pelvis was performed utilizing multislice spiral C[employer] ue reconstructed at 5 mm slice thickness. Coronal and sagittal reconstructions were performed. This CT examination was performed utilizing dose reduction techniques. DLP: 1790 mGy-cm FINDINGS/OBSERVATIONS: Lung: The lungs are clear. No contusion, pneumothorax or hemothorax. The heart is of normal size, without pericardial effusion. Mediastinum: No pathologically enlarged or morphologically suspicious lymph nodes are identified within the medias tinum, bilateral axilla, within the soft tissues of the anterior chest wall. Soft tissues of the chest: Unremarkable. Bones of the chest: No acute fracture. Irregularity of the lower ribs are identified, with overlap of the ninth and 10th ribs anteriorly, un changed from 01/17/2020 Liver: The liver enhances homogeneously and is not enlarged. No perihepatic fluid to suggest acute traumatic injury. Gallbladder and biliary system: The gallbladder is minimally distended, but otherwise unremarkable. Pancreas: The pancreas enhances homogeneously, without ductal dilatation. No peripancreatic fluid is identified to suggest acute traumatic injury. Spleen: Punctate calcifications identified within the splenic parenchyma, suggesting prior granulomat ous disease. The remainder of the spleen enhances homogeneously and is not enlarged. No perisplenic fluid is ident ified to suggest acute traumatic injury. Kidneys: The bilateral kidneys enhance symmetrically without hydronephrosis or renal calculi. No perirenal fluid is identified to suggest acute traumatic injury. Adrenal glands: Unremarkable. Gastrointestinal tract: Small hiatal hernia is present. Fecal stasis within the colon. No significant free fluid within the abdomen or pelvis. Vasculature: Trace calcified atherosclerotic disease is present. No aneurysmal dilatation. Lymph nodes: Scattered nonpathologically enlarged lymph nodes within the root of the mesentery and deep in the pel vis. Pelvic structures: The bladder is minimally distended and otherwise unremarkable. The uterus is anteverted and anteflexed. Body wall and musculoskeletal: Age-appropriate degenerative disease detected within the thoracic and lumbosacral spines. No acute compression fractures. IMPRESSION: No hollow or solid visceral organ injury. No acute fracture. Reviewed, dictated and finalized at location A.
--- NOTE | ~2024-10-13 | XR_ITS ---
HISTORY: fall, distal pain, great toe pain COMPARISON: None TECHNIQUE: 3 views of the right foot FINDINGS: Hallux valgus deformity. No acute fracture or dislocation is appreciated. Significant degenerative disease is noted. The base of the fifth metatarsal is intact. Large calcaneal spur is noted. Ossification of the insertion of the achilles tendon. No significant soft tissue swelling is present. IMPRESSION: Degenerative disease without acute fracture Reviewed, dictated and finalized at location A.
--- OUTSIDE RECORDS SUMMARY | 2024-10-13 16:56 | XMS_ITS ---
Author Organization [facility] Address [address] [facility] [address] [facility] [address] [place] [address] Care Team Providers Care Division Superintendent Name Role Phone FaheemPaulinoDez Unavailable [phone] Encounters Encounter Location Date Provider Diagnosis [place] [facility] [address] [place] [address] 04/14/2024 Dez Mayen Plan Of Treatment Next Appt Details Provider Name:Dez Mayen , 11/17/2024 02:30:00 PM, [address], [facility], Progress Notes * KRISTA CUMMINGSDOB:[birth year] (64 yo F)Acc No.[id number]:04/14/2024 Progress Notes Patient: KRISTA ALONSO Provider: Susan BAUMAN MD, Hilary.Nidia.C.P, F.A.S.N. :1960 A ge:63 Y S ex:Female Date:04/14/2024 Address:[address] [place] [address] Subjective: * Chief Complaints: * * Medical History: Objective: * Vitals: Assessment: Plan: * Treatment: * Billing Information: * Visit Code: * Procedure Codes: * Electronic signature of Hoang Mayen MD on 10/13/2024 at 04:56 PM CDT Sign off status: Pending * Provider: Susan BAUMAN MD, Jose Alejandro.C.P, F.A.S.N. Date: 0 04/14/2024 Generated for Printing/Faxing/eTransmitting on: 0 10/13/2024 04:56 PM CDT
--- OUTSIDE RECORDS SUMMARY | 2024-10-13 16:56 | XMS_ITS ---
Author Organization [facility] Address [address] [place] [address] Care Team Providers Care Compliance Associate Name Role Phone FaheemPaulinoDez Unavailable [phone] Medications Medication SIG (Take, Route, Frequency, Duration) Notes Start Date End Date Status Vitamin D (Ergocalciferol) 1.25 MG (24163 UT) Take 1 capsule by mouth once a week; Duration: 91 Active Allopurinol 100 MG Take 1 tablet by twice daily; Duration: 90 days Active Losartan Potassium 100 MG 1 tablet Orall y Once a day; Duration: 90 days 02/19/2022 Active Losartan Potassium 50 MG 1 tablet Orally Once a day; Duration: 90 days 12/13/2021 Active Losartan Potassium 100 MG 1 tablet Orall y Once a day; Duration: 90 days 03/22/2021 Active Encounters Encounter Location Date Provider Diagnosis [place] [facility] [address] [facility] [address] [place] [address] 08/27/2023 Dez Mayen Chronic kidney disease, stage 3a N18.31 ; Essential hypertension I10 ; Abnormal metabolic state due to diabetes mellitus E11.9 ; Edema, unspecified R60.9 and Type 2 diabetes mellitus with hyperglycemia E11.65 Assessments Encounter Date Diagnosis (ICD Code) Assessment Notes Treatment Notes Treatment Clinical Notes Section Notes 08/27/2023 Chronic kidney disease, stage 3a (ICD-10 - N18.31) 08/27/2023 Essential hypertension (ICD-10 - I10) 08/27/2023 Abnormal metabolic state due to diabetes mellitus (ICD-10 - E11.9) 08/27/2023 Edema, unspecified (ICD-10 - R60.9) 08/27/2023 Type 2 diabetes mellitus with hyperglycemia (ICD-10 - E11.65) Plan Of Treatment Next Appt Details Provider Name:Dez Mayen , 11/17/2024 02:30:00 PM, [address] [facility], [facility] [address], [place], [address], Progress Notes * KRISTA CUMMINGSDOB:[birth year] (64 yo F)Acc No.[id number]:08/27/2023 Progress Notes Patient: KRISTA ALONSO Provider: Susan BAUMAN MD, F.Nidia.C.P, F.A.S.N. :1960 A ge:62 Y S ex:Female Date:08/27/2023 Address:[address] [place] [address] Subjective: * Chief Complaints: * * Medical History: * Medications: T aking Losartan Potassium 100 MG Tablet 1 tablet Orally Once a day , Taking Losartan Potassium 50 MG Tablet 1 tablet Orally Once a day , Taking Losartan Potassium 100 MG Tablet 1 tablet Orally Once a day , Taking Allopurinol 100 MG Tablet Take 1 tablet by mouth twice daily , Taking Vitamin D (Ergocalciferol) 1.25 MG (15382 UT) Capsule Take 1 capsule by mouth once a week Objective: * Vitals: Assessment: * Assessment: 1. C hronic kidney disease, stage 3a - N18.31 (Primary) 2 . E ssential hypertension - I10 3 . A bnormal metabolic state due to diabetes mellitus - E11.9? 4. E harini, unspecified - R60.9 5 . T ype 2 diabetes mellitus with hyperglycemia - E11.65 Plan: * Treatment: * Billing Information: * Visit Code: 79973 Office Visit, Est Pt., Level 4. * Procedure Codes: * Electronic signature of Hoang Mayen MD on 10/13/2024 at 04:56 PM CDT Sign off status: Pending * Provider: Susan BAUMAN MD, Hilary.Nidia.C.P, F.A.S.N. Date: 0 08/27/2023 Generated for Printing/Faxing/eTransmitting on: 10/13/2024 04:56 PM CDT
--- OUTSIDE RECORDS SUMMARY | 2024-10-13 16:56 | XMS_ITS | Clinical Summary ---
Author Organization [facility] Address [address] [place] [address] Care Team Providers Care Ruling Machine Operator Name Role Phone Edwardo Murillo MD Primary Care Provider [phone] Source Comments [facility],non-owned Affiliates and Associated Physician Practices is amultiple site organization consisting of ambulatory clinics and hospital sitesin [place], [place], [place] and [place]. This disclosure is being madepursuant to the Care Everywhere program and may not contain all information available regarding this patient. Last updated 17.[facility] Allergies No known active allergies Medications * Be aware that medications may not be up to date on this document. Alwaysverify current medications with the patient. allopurinol (ZYLOPRIM) 100 MG tablet Take 100 mg by mouth once daily Active ascorbic acid (VITAMIN C) 125 MG TABS half tablet Take by mouth once daily Active calcitriol (ROCALTROL) 0.25 MCG capsule Take 0.25 mcg by mouth once daily Active citalopram (CELEXA) 10 MG tablet Take 10 mg by mouth once daily Active VITAMIN D, CHOLECALCIFEROL, PO Active ferrous sulfate 325 (65 FE) MG tablet Take 325 mg by mouth daily with food Active furosemide (LASIX) 20 MG tablet Take 20 mg by mouth once daily Active glipiZIDE (GLUCOTROL) 10 MG tablet Take 10 mg by mouth daily before breakfast Active INSULIN GLARGINE SC Active INSULIN LISPRO, HUMAN, SC Active olmesartan (BENICAR) 20 MG tablet Take 20 mg by mouth once daily Active pantoprazole EC (PROTONIX) 20 MG tablet Take 20 mg by mouth once daily Active simvastatin (ZOCOR) 40 MG tablet Take 40 mg by mouth at bedtime Active solifenacin (VESICARE) 5 MG tablet Take 5 mg by mouth once daily Active albuterol HFA (PROVENTIL;ESTEFANI JOSE;PROAIR) 108 (90 BASE) MCG/ACT inhalerIndicatio ns:Acute bronchitis, unspecified organism Inhale 2 puffs by mouth every 4 hours as needed for Wheezing 1 Inhaler 8 Active benzonatate (TESSALON) 100 MG capsuleIndicatio ns:Cough Take 1 capsule by mouth 3 times daily as needed for Cough Reasons: Cough 30 capsule 8 Active Social History Tobacco Use Types Packs/Day Years Used Date Smoking Tobacco: Former Cigarettes Q uit: 2006 Smokeless Tobacco: Never Comments No Sex and Gender Information Value Date Recorded Sex Assigned at Not on file Legal Sex Female 1:39 PM CDT Gender Identity Not on file Sexual Orientation Not on file Last Filed Vital Signs Vital Sign Reading Time Taken Comments Blood Pressure 118/70 05/22/2017 2:46 PM CDT Pulse 92 05/22/2017 2:46 PM CDT Temperature 36.6 C (97.8 F) 05/22/2017 2:46 PM CDT Respiratory Rate 16 05/22/2017 2:46 PM CDT Oxygen Saturation 95% 05/22/2017 2:46 PM CDT Inhaled Oxygen Concentration - - Weight 142.9 kg (315 lb) 05/22/2017 2:46 PM CDT Height 165.1 cm (5' 5) 05/22/2017 2:46 PM CDT Body Mass Index 52.42 05/22/2017 2:46 PM CDT Plan of Treatment Health Maintenance Due Date Last Done Comments BONE DENSITY TESTING 1960 COLOGUARD (AGES 45-75) - COL ON CA SCREENING 1959 COLON MONITORING 1959 COLONOSCOPY - COLON CA SCREENING 1959 CT COLONOGRAPHY - COLON CA SCREENING 1959 Colorectal Cancer Screening 1959 FIT - COLON CA SCREENING 1959 FLEX SIG - COLON CA SCREENING 1959 MAMMOGRAM 1959 HIV SCREENING 10/03/1974 HEPATITIS C SCREENING 09/29/1977 DTAP/TDAP/TD VACCINES (1 - Tdap) 10/03/1978 PNEUMOCOCCAL VACCINE 50+ (1 of 1 - PCV) 10/03/2009 ZOSTER VACCINE (1 of 2) 10/03/2009 SCREENING FOR DIABETES 05/22/2017 Respiratory Syncytial Virus (RSV) Vaccine Pt: or over 60 yrs (1 - Risk 60-74 years 1-dose series) 2019 COVID-19 VACCINE (1 - 2023-2 5 season) 2023 DEPRESSION SCREENING 03/10/2024 INFLUENZA VACCINE (#1) 2024 HEPATITIS B VACCINE Aged Out No longe r eligible based on patient's age to complete this topic HIB VACCINE Aged Out No longer eligi ble based on patient's age to complete this topic HPV VACCINE Aged Out No longer eligi ble based on patient's age to complete this topic MENINGOCOCCAL (Group B) VACC INE SHARED DECISION-MAKING Aged Out No longer eligibl e based on patient's age to complete this topic MENINGOCOCCAL GROUPS A/C/Y/W VACCINE Aged Out No longer eligible b ased on patient's age to complete this topic Insurance [facility] MANAGED MEDICARE ADV MEDICARE [facility] MEDICARE ADV Care Teams Ruling Machine Operator Relationship Specialty Start Date End Date Edwardo Murillo MD [address] [facility] [address] [place] [id number] PCP - General Internal Medicine 05/22/17
--- OUTSIDE RECORDS SUMMARY | 2024-10-13 16:56 | XMS_ITS ---
Author Organization [facility] Address [address] [place] [address] Care Team Providers Care Paleology Professor Name Role Phone MayenOswaldDez Unavailable [phone] Problems Problem Type SNOMED Code ICD Code Onset Dates Problem Status W/U Status Risk Notes Problem Incontinence without sensory awareness (036228886) Incontinence without sensory awareness (N39.42) Active confirmed Problem Obstructive sleep apnea syndrome (disorder) (21037665) Obstructive sleep apnea (adult) (pediatric) (G47.33) Active confirmed Encounters Encounter Location Date Provider Diagnosis [place] [facility] [address] [facility] [address] [place] [address] 08/25/2024 Dez Mayen Chronic kidney disease, stage 3a N18.31 ; Essential hypertension I10 ; Abnormal metabolic state due to diabetes mellitus E11.9 ; Edema, unspecified R60.9 ; Type 2 diabetes mellitus with hyperglycemia E11.65 ; Proteinuria, unspecified R80.9 ; Incontinence without sensory awareness N39.42 and Obstructive sleep apnea (adult) (pediatric) G47.33 Assessments Encounter Date Diagnosis (ICD Code) Assessment Notes Treatment Notes Treatment Clinical Notes Section Notes 08/25/2024 Chronic kidney disease, stage 3a (ICD-10 - N18.31) 08/25/2024 Essential hypertension (ICD-10 - I10) 08/25/2024 Abnormal metabolic state due to diabetes mellitus (ICD-10 - E11.9) 08/25/2024 Edema, unspecified (ICD-10 - R60.9) 08/25/2024 Type 2 diabetes mellitus with hyperglycemia (ICD-10 - E11.65) 08/25/2024 Proteinuria, unspecified (ICD-10 - R80.9) 08/25/2024 Incontinence without sensory awareness (ICD-10 - N39.42) 08/25/2024 Obstructive sleep apnea (adult) (pediatric) (ICD-10 - G47.33) Plan Of Treatment Next Appt Details Provider Name:Dez Mayen , 11/17/2024 02:30:00 PM, [address], [address], [place], [address], Progress Notes * KRISTA CUMMINGSDOB:[birth year] (64 yo F)Acc No.[id number]:08/25/2024 Progress Notes Patient: KRISTA ALONSO Provider: Susan BAUMAN MD, F.A.C.P, F.A.S.N. :1960 A ge:63 Y S ex:Female Date:08/25/2024 Address:[address] [place] [address] Subjective: * Chief Complaints: * * Medical History: Objective: * Vitals: Assessment: * Assessment: 1. C hronic kidney disease, stage 3a - N18.31 (Primary) 2 . E ssential hypertension - I10 3 . A bnormal metabolic state due to diabetes mellitus - E11.9? 4. E harini, unspecified - R60.9 5 . T ype 2 diabetes mellitus with hyperglycemia - E11.65 6 . P roteinuria, unspecified - R80.9 ?7. I ncontinence without sensory awareness - N39.42 8 . O bstructive sleep apnea (adult) (pediatric) - G47.33 Plan: * Treatment: * Billing Information: * Visit Code: 79043 Office Visit, Est Pt., Level 4. * Procedure Codes: * Electronic signature of Hoang Mayen MD on 10/13/2024 at 04:56 PM CDT Sign off status: Pending * Provider: Susan BAUMAN MD, F.A.C.P, F.A.S.N. Date: 0 08/25/2024 Generated for Printing/Faxing/eTransmitting on: 0 10/13/2024 04:56 PM CDT
--- OUTSIDE RECORDS SUMMARY | 2024-10-13 16:56 | XMS_ITS | Patient Health Record ---
Author Organization [facility] Address [address] [facility] [address] [place] [address] Care Team Providers Care Re Etcher Name Role Phone Dez Mayen Unavailable [phone] Reason For Referral No Information Medications Medication SIG (Take, Route, Frequency, Duration) Notes Start Date End Date Status Vitamin D (Ergocalciferol) 1.25 MG (43064 UT) Take 1 capsule by mouth once [...] a day; Duration: 90 days 03/22/2021 Active Problems Problem Type SNOMED Code ICD Code Onset Dates Problem Status W/U Status Risk Notes Problem Hyperglycemia due to type 2 diabetes mellitus (380586190546690) Type 2 diabetes mellitus with hyperglycemia (E11.65) Active confirmed Problem Obstructive sleep apnea syndrome (disorder) (59209995) Obstructive sleep apnea (adult) (pediatric) (G47.33) Active confirmed Problem Incontinence without sensory awareness (060437833) Incontinence without sensory awareness (N39.42) Active confirmed Problem Edema (04440956) Edema, unspecified (R60.9) Active confirmed Problem Essential hypertension (72343600) Essential hypertension (I10) Active confirmed Problem Abnormal metabolic state due to diabetes mellitus (364863760) Abnormal metabolic state due to diabetes mellitus (E11.9) Active confirmed Problem Chronic kidney disease stage 3A (disorder) (602251394) Chronic kidney disease, stage 3a (N18.31) Active confirmed Encounters Encounter Location Date Provider Diagnosis [place] [facility] [address] [facility] [address] [place] [address] 08/25/2024 Dez Mayen Chronic kidney disease, stage [...] Notes Treatment Clinical Notes Section Notes 08/25/2024 Essential hypertension (ICD-10 - I10) 08/25/2024 Chronic kidney disease, stage 3a (ICD-10 - N18.31) 08/25/2024 Abnormal metabolic state due to diabetes [...] Name:Dez Mayen , 11/17/2024 02:30:00 PM, [address] [facility], [address], [place], [address],
--- OUTSIDE RECORDS SUMMARY | 2024-10-13 16:56 | XMS_ITS | Clinical Summary ---
Author Organization [facility] [facility] [place] Address [address] [place] [phone] Care Team Providers Care Sql Report Developer Name Role Phone Edwardo Murillo MD Primary Care Provider Darrel Scott MD Unavailable Allergies No known [...] (40 mg total) by mouth nightly Active solifenacin (VESIcare) 5 mg tablet Take [...] , with long-term current use of insulin ([facility]) 019 Active blood-glucose meter kitIndication s:Type 2 diabetes mellitus with hyperglycemia , with long-term current use of insulin ([facility]) Test blood sugars four times daily DX:E11.65 insulin dependent 1 each 021 Active budesonide-fo rmoteroL (SYMBICORT) 160-4.5 mcg/actuation inhaler Symbicort 160 mcg-4.5 mcg/actuation HFA aerosol inhaler Active ergocalcifero l (VITAMIN D) 50,000 unit capsule Take 1 capsule (50,000 Units total) by mouth once a week 022 Active LANTUS 100 unit/mL vial for injection Inject 85 Units under the skin nightly 90 mL 3 022 Active Additional Information Patient taking differently: 50 Unitssubcutaneous Nightly, Reported on 08/24/2024 blood glucose diagnostic (OneTouch Verio test strips) [...] , with long-term current use of insulin ([facility]) To calibrate glucometer. Onetouch verio 2 each 3 024 Active metFORMIN (GLUCOPHAGE) 500 mg tabletIndicat ions:Type 2 diabetes mellitus with hyperglycemia , with long-term current use of insulin ([facility]) TAKE 1 TABLET BY MOUTH ONCE DAILY IN THE MORNING AND 2 IN THE EVENING WITH SUPPER 300 tablet 1 024 Active OneTouch Verio Mid Control solution USE TO CALIBRATE GLUCOMETER 024 Active Farxiga 10 mg tabletIndicat ions:type 2 diabetes mellitus Take 1 tablet (10 mg total) by mouth daily 90 tablet 3 025 2025 Active Ozempic 2 mg/dose (8 mg/3 mL) pen injector injection Inject 2 mg under the skin every 7 days Active FreeStyle Frances 3 Sensor device as directed Active FreeStyle Frances 3 Sensor device as directed Active cholecalcifer ol (VITAMIN D-3) 5,000 unit tablet cholecalciferol (vitamin D3) 125 mcg (5,000 unit) tablet Active losartan (COZAAR) 100 mg tabletIndicat ions:Type 2 diabetes mellitus with hyperglycemia , with long-term current use of insulin (HCC) Take 1 tablet by mouth once daily 90 tablet Active losartan (COZAAR) 100 mg tabletIndicat ions:Type 2 diabetes mellitus with hyperglycemia , with long-term current use of insulin (HCC) Take 1 tablet by mouth once daily 90 tablet 025 2024 Discontinued Active Problems Problem Noted Date Diagnosed Date Severe obesity 10/30/2023 Class 3 severe obesity due t o excess calories with serious comorbidity and body mass index (BMI) of 40.0 to 44.9 in adult 10/30/2023 Assessment & Plan (05/03/2024 11:11 AM CHARGE ACCOUNT CLERK): Chronic problem. Mrs Keith has lost almost 100# since starting Ozempic. She's started going to the gym (water aerobics, bike); uses her treadmill at home. Discussed healthy diet and importance of regular physical activity (20- 30min/day, 150min/wk). Assessment & Plan (10/30/2023 11:20 AM CDT): Chronic problem. Mrs Keith has lost almost 100# since starting Ozempic. She's started going to the gym now (water aerobics, bike); uses her treadmill at home. Discussed healthy diet and importance of regular physical activity (20- 30min/day, 150min/wk). CKD stage 3 due to type 2 diabetes mellitus 10/10 Assessment & Plan (08/24/2024 10:31 AM CDT): Chronic problem. Managed by Dr Mayen in [place]. as not seen him since 2023; to call to make an appointment. Currently taking Farxiga 10mg daily as well as Losartan 100mg daily Nephropathy: On JUDITH-I / ARB s : Yes. Losartan 100mg. Last MA: 10/30/23 (51). Last creat/GFR: 10/30/23 GFR=50, CR=1.21. Will update labs. Does not mychart. Verified phone #/address to contact re: results. Assessment & Plan (05/03/2024 11:03 AM CHARGE ACCOUNT CLERK): Was managed by Dr Mayen in [place]. But insurance changes & needs new renal. Was seeing him q3-4 mos. Currently taking Farxiga 10mg daily as well as Losartan 100mg daily Nephropathy: On JUDITH-I / ARB s : Yes. Losartan 100mg. Last MA: 10/30/23 (51). Last creat/GFR: 10/30/23 GFR=50, CR=1.21. Assessment & Plan (10/30/2023 10:57 AM CDT): Managed by Dr Mayen in [place]. Sees q3-4 mos. JAN 0803/2023. Currently taking Farxiga 10mg daily as well as Losartan 100mg daily Last creat/GFR: 08/06/22 GFR=47, CR=1.29. Will update labs today. Does not mychart. Verified phone #/address to contact re: results. Assessment & Plan (02/25/2023 9:55 AM CHARGE ACCOUNT CLERK): Managed by Dr Mayen in [place]. Sees q3-4 mos. JAN 0803/2023. Currently taking Farxiga 10mg daily as well as Losartan 100mg daily Last creat/GFR: 08/06/22 GFR=47, CR=1.29. Assessment & Plan (11/07/2022 1:48 PM CDT): Managed by Dr Mayen in [place]. Currently taking Farxiga 10mg daily as well as Losartan 100mg daily Abscess of buttock 05/06/2019 Assessment & Plan (05/06/2019 11:02 AM CHARGE ACCOUNT CLERK): Referred to would care center at [facility] Combined hyperlipidemia assherrera ciated with type 2 diabetes mellitus 04/02/2018 Assessment & Plan (08/24/2024 9:58 AM CDT): Chronic problem. Controlled on current Simvastatin 40mg. Last lipid panel: 10/30/23 LDL=43, TG=91. Will update labs. Does not mychart. Verified phone #/address to contact re: results. Assessment & Plan (05/03/2024 10:51 AM CHARGE ACCOUNT CLERK): Chronic problem. Controlled on current Simvastatin 40mg. Last lipid panel: 10/30/23 LDL=43, TG=91. Assessment & Plan (10/30/2023 10:57 AM CDT): Chronic problem. Controlled on current Simvastatin 40mg. Last lipid panel: 08/06/22 LDL=29, CX=265. Will update labs today. Does not mychart. Verified phone #/address to contact re: results. Assessment & Plan (02/25/2023 9:39 AM CHARGE ACCOUNT CLERK): Chronic problem. Controlled on current Simvastatin 40mg. Last lipid panel: 08/06/22 LDL=29, XY=985. Assessment & Plan (11/07/2022 1:25 PM CDT): Chronic problem. Controlled on current Simvastatin 40mg. Last lipid panel: 08/06/22 LDL=29, ZT=105. Assessment & Plan (08/06/2022 2:51 PM CDT): Chronic, well controlled Low fat Low cholesterol diet Exercise Continue statin therapy Update lipid profile Assessment & Plan (03/07/2022 1:20 PM CHARGE ACCOUNT CLERK): Chronic problem. On statin therapy, no changes. Assessment & Plan (09/13/2021 1:40 PM CDT): Well controlled on current regimen Continue simvastatin Assessment & Plan (05/10/2021 2:38 PM CHARGE ACCOUNT CLERK): Chronic, well controlled Continue current meds Check [...] therapy. Assessment & Plan (04/09/2020 1:43 PM CHARGE ACCOUNT CLERK): At goal on current medications. Continue statin [...] panel Assessment & Plan (05/06/2019 11:01 AM CHARGE ACCOUNT CLERK): Goal of treatment , LDL cholesterol less [...] therapy Assessment & Plan (04/02/2018 2:31 PM CHARGE ACCOUNT CLERK): Goal of treatment , LDL cholesterol less [...] associated with diabetes 02/06/2017 Assessment & Plan (08/24/2024 9:59 AM CDT): Chronic problem. Controlled on current losartan 100mg daily. Will update labs. Does not mychart. Verified phone #/address to contact re: results. Assessment & Plan (05/03/2024 10:51 AM CHARGE ACCOUNT CLERK): Chronic problem. Controlled on current losartan 100mg daily. Assessment & Plan (10/30/2023 10:57 AM CDT): Chronic problem. Controlled on current losartan 100mg daily. Will update labs today. Does not mychart. Verified phone #/address to contact re: results. Assessment & Plan (02/25/2023 9:39 AM CHARGE ACCOUNT CLERK): Chronic problem. Controlled on current losartan 100mg daily. Assessment & Plan (11/07/2022 1:25 PM CDT): Chronic problem. Controlled on current losartan 100mg daily. Assessment & Plan (08/06/2022 2:50 PM CDT): Chronic, well controlled Importance of low salt diet and exercise were discussed Continue current meds Update SERENA BELL Assessment & Plan (03/07/2022 1:20 PM CHARGE ACCOUNT CLERK): Controlled on current medications, no changes. Assessment & Plan (09/13/2021 1:40 PM CDT): Chronic, well controlled Continue current medications Assessment & Plan (05/10/2021 2:38 PM CHARGE ACCOUNT CLERK): Chronic, well controlled Continue current meds Check MA Assessment & Plan (09/28/2020 9:30 AM CDT): Goal blood pressure is less than 140/85 Low salt diet The importance of daily aerobic exercise was also emphasized. Continue current meds, including JUDITH-I or ARB, e.g. Losartan Assessment & Plan (06/08/2020 9:02 AM CDT): Controlled on current medications. Continue plan. Assessment & Plan (04/09/2020 1:42 PM CHARGE ACCOUNT CLERK): Controlled on current medications. Continue plan. Assessment & Plan (11/30/2019 3:13 PM CDT): Diet and exercise Low salt diet Continue current Assessment & Plan (08/26/2019 1:23 PM CDT): Controlled on current medications. Continue plan. Assessment & Plan (05/06/2019 11:01 AM CHARGE ACCOUNT CLERK): Goal blood pressure is less than 140/85 Low salt diet recommended Daily aerobic exercise Continue current meds, including JUDITH-I or ARB Assessment & Plan (10/13/2018 2:31 PM CDT): Goal blood pressure is less than 140/85 Low salt diet recommended Daily aerobic exercise Continue current meds, including JUDITH-I or ARB with Benicar Assessment & Plan (04/02/2018 2:32 PM CHARGE ACCOUNT CLERK): Goal blood pressure is less than 140/85 Low salt diet recommended Daily aerobic exercise Continue current meds, including JUDITH-I or ARB Assessment & Plan (05/08/2017 11:48 AM CHARGE ACCOUNT CLERK): Goal blood pressure is less than 140/85 Low salt diet recommended Daily aerobic exercise Continue current meds, including JUDITH-I or ARB Assessment & Plan (02/06/2017 9:56 AM CHARGE ACCOUNT CLERK): Controlled on current medications. Type 2 diabetes mellitus wit h hyperglycemia, with long-term current use of insulin 09/05/2016 Assessment & Plan (08/24/2024 10:28 AM CDT): Chronic problem. A1c at goal (6.0%). BG running low normal over night. Will decrease lantus from 55 to 50 units. Current medications: Metformin 500mg with breakfast, 1000mg with dinner Farxiga 10mg daily (PAP) Ozempic 2mg weekly (PAP) Lantus 50 units nightly (PAP) Humalog 8 units three times daily with meals if under 200, if over 200: 12 units (PAP) Will update labs. Does not mychart. Verified phone #/address to contact re: results. DM eye exam (06/2022) completed 06/2023 at [facility] in . 3rd request letter sent to get copy of report. Strive [...] skin breakdown and infection. Assessment & Plan (05/03/2024 11:12 AM CHARGE ACCOUNT CLERK): Chronic problem. A1c at goal (5.8%). will try to get PAP for her insulins, Ozempic & Farxiga. Current medications: Metformin 500mg with breakfast, 1000mg with dinner Farxiga 10mg daily Ozempic 2mg weekly Lantus 55 units nightly Humalog 8 units three times daily with meals if under 200, if over 200: 12 units UTD on labs. DM eye exam (06/2022) completed 06/2023 at [facility] in . Letter sent to get copy [...] skin breakdown and infection. Assessment & Plan (10/30/2023 11:18 AM CDT): [...] DM [facility]06/2022[facility] Letter sent to get copy [...] infection. Assessment & Plan (02/25/2023 9:58 AM CHARGE ACCOUNT CLERK): Chronic problem. A1c at goal (5.9%) but [...] Metformin Assessment & Plan (03/07/2022 1:35 PM CHARGE ACCOUNT CLERK): Chronic problem, improving. Will try switching Bydureon [...] regimen Assessment & Plan (05/10/2021 2:17 PM CHARGE ACCOUNT CLERK): Hba1c was Lab Results Component Value Date [...] Start Farxiga 10 mg daily.Schedule appt with supervisor train operations to review meal plan. Assessment & Plan (04/09/2020 2:01 PM CHARGE ACCOUNT CLERK): A1c 7.9. Advised to adjust Lantus to [...] meter. Assessment & Plan (05/06/2019 11:01 AM CHARGE ACCOUNT CLERK): Hba1c was Lab Results Component Value Date [...] goal hba1c is under 7.0 to prevent superintendent terminal diabetes complications ( eye , kidney and [...] me. Assessment & Plan (04/02/2018 2:30 PM CHARGE ACCOUNT CLERK): Hba1c was Lab Results Component Value Date [...] goal hba1c is under 7.0 to prevent superintendent terminal diabetes complications ( eye , kidney and [...] units. Assessment & Plan (05/08/2017 11:47 AM CHARGE ACCOUNT CLERK): Hba1c was 7.1 today, indicating adequate DM [...] discussed. Assessment & Plan (02/06/2017 9:59 AM CHARGE ACCOUNT CLERK): A1c 8.4. Still too high. Increase Lantus [...] Resolved Date Body mass index 40.0-44.9, adult ([facility]) 10/30/2023 10/30/2023 Morbid (severe) obesity due to excess calories 03/07/2022 11/07/2022 Assessment & Plan (03/07/2022 1:36 PM CHARGE ACCOUNT CLERK): Chronic problem. Start Ozempic. Work on lifestyle. Body mass index (BMI) 50.0-59.9, adult 03/07/2022 10/30/2023 Hyperlipidemia 02/06/2017 02/25/2023 Assessment & Plan (05/08/2017 11:48 AM CHARGE ACCOUNT CLERK): Goal of treatment , LDL cholesterol less [...] therapy Assessment & Plan (02/06/2017 9:56 AM CHARGE ACCOUNT CLERK): Check lipid panel. BMI 50.0-59.9, adult 09/05/2016 023 Assessment & Plan (06/08/2020 9:01 AM CDT): Importance of following diet and exercising discussed. Assessment & Plan (04/09/2020 1:42 PM CHARGE ACCOUNT CLERK): Importance of following diet and exercising discussed. Assessment & Plan (08/26/2019 1:23 PM CDT): Importance of following diet and exercising discussed. Assessment & Plan (10/25/2016 3:07 PM CDT): Bariatric surgery discussed. She will callPiper Anderson or [facility] to attend information program. Encounters Date Type Department Care Team Description 09/14/2024 [facility]phone [facility] [place] [facility] [address] [phone] Noris Sanches NP Ozempritchie 08/25/2024 Results Follow-Up [facility] Diabetes and Endocrinology [address] [place] [phone] Noris Sanches, KONSTANTIN Albumin Creatinine Ratio, Urine, Comprehensive metabolic panel, Lipid panel, eGFR 08/24/2024 10:38 AM CDT - 08/24/2024 11:59 PM CDT Hospital Encounter [address] [address] Type 2 diabetes mellitus with hyperglycemia, with long-term current use of insulin (HCC); Hypertension associated with diabetes (HCC); Combined hyperlipidemia associated with type 2 diabetes mellitus (HCC) Discharge Disposition: Discharge to home or self care 08/24/2024 10:30 AM CDT Lab [facility] Outpatient Lab at [address] [phone] 08/24/2024 10:00 AM CDT Office Visit [facility] Endocr[facility] [address] [place] [phone] Noris Sanches NP Type 2 diabetes mellitus with hyperglycemia, with long-term current use of insulin (HCC) (Primary Dx); Hypertension associated with diabetes (HCC); Combined hyperlipidemia associated with type 2 diabetes mellitus (HCC); CKD stage 3 due to type 2 diabetes mellitus (HCC) 08/12/2024 Telephone [facility] Medical [facility] Diabetes and Endocrinology [address] [place] [phone] Noris Sanches NP Med Management ([facility]) from Last 3 Months Surgical History Surgery Date Site/Laterality Comments CHOLECYSTECTOMY Gallbladder removed OTHER SURGICAL HISTORY Perirectal abscess removed Medical History Medical History Date Comments Hypertension Hypertension Diabetes mellitus (HCC) Diabetes Type 2 diabetes mellitus Kidney disease, chronic, stage III (GFR 30-59 [...] Cigarettes Q uit: 03/10/2006 Smokeless Tobacco: Never Tobacco Cessation:Counseling Given: Not Answered Alcohol Use Standard Drinks/Week Comments No 0 (1 standard drink = 0.6 oz pur e alcohol) PHQ-2 Answer Date Recorded PHQ-2 Total Score (If total score is 3 or more points, staff should administer the PHQ-9) 0 08/06/2022 Comments Unknown Sex and Gender Information Value Date Recorded Sex Assigned at Not on file Legal Sex Female 7:27 PM CHARGE ACCOUNT CLERK Gender Identity Not on file Sexual Orientation Not on file Obstetrics History Last Filed Vital Signs Vital Sign Reading Time Taken Comments Blood Pressure 116/70 08/24/2024 9:58 AM CDT Pulse 70 08/24/2024 9:58 AM CDT Temperature - - Respiratory Rate 18 08/24/2024 9:58 AM CDT Oxygen Saturation - - Inhaled Oxygen Concentration - - Weight 115.2 kg (254 lb) 08/24/2024 9:58 AM CDT Height 165.1 cm (5' 5) 08/24/2024 9:58 AM CDT Body Mass Index 42.27 08/24/2024 9:58 AM CDT Plan of Treatment Health Maintenance Due Date Last Done Comments Cervical Cancer Screening 1959 Colon Cancer Screening-Colonoscopy 1959 Fall Risk Assessment 1959 Hepatitis C Screening 1960 Osteoporosis Screening-Bone Density Scan 1959 Hepatitis B Screening 10/03/1977 Zoster Vaccine (1 of 2) 10/03/2009 Breast Cancer Screening-Mammogram 04/12/2014 014, 04/10/2012 Pneumococcal vaccine 65+ (2 of 2 - PCV) 08/03/2015 08/02/2014 Depression Screening 08/07/2023 08/06/2022, 05/10/2021, 09/28/2020, Additional history exists Dilated Eye Exam 06/13/2024 06/13/2022, 08/04/2020 DTaP/Tdap/Td Vaccine (2 - Td or Tdap) 08/02/2024 08/02/2014 Well Visit 65+ 10/03/2024 Influenza Vaccine (#1) 2024 , 12/16/2019, 01/14/2019, Additional history exists Hemoglobin A1C 02/23/2025 08/24/2024, 04/11, 10/30/2023, Additional history exists Albumin Creatinine Ratio, Urine 08/24/2025 08/24/2024, 10/30/2023, 08/06/2022, Additional history exists Foot Exam 08/24/2025 08/24/2024, 10/09, 11/07/2022, Additional history exists Lipid Panel 08/24/2025 08/24/2024, 10/09, 08/06/2022, Additional history exists eGFR 08/24/2025 08/24/2024, 10/09, 08/06/2022, Additional history exists Procedures Procedure Name Priority Date/Time Associated Diagnosis Comments EGFR Routine 08/24/2024 10:38 AM CDT Type 2 diabetes mellitus with hyperglycemia, with long-term current use of insulin (HCC) Hypertension associated with diabetes (HCC) LIPID PANEL Routine 08/24/2024 10:38 AM CDT Type 2 diabetes mellitus with hyperglycemia, with long-term current use of insulin (HCC) Combined hyperlipidemia associated with type 2 diabetes mellitus (HCC) COMPREHENSIVE METABOLIC PANEL Routine 08/24/2024 10:38 AM CDT Type 2 diabetes mellitus with hyperglycemia, with long-term current use of insulin (HCC) Hypertension associated with diabetes (HCC) ALBUMIN CREATININE RATIO, URINE Routine 08/24/2024 10:38 AM CDT Type 2 diabetes mellitus with hyperglycemia, with long-term current use of insulin (HCC) POCT GLUCOSE Routine 08/24/2024 10:02 AM CDT Type 2 diabetes mellitus with hyperglycemia, with long-term current use of insulin (HCC) POCT HEMOGLOBIN A1C Routine 08/24/2024 1 0:02 AM CDT Type 2 diabetes mellitus with hyperglycemia, with long-term current use of insulin (HCC) HM DIABETES EYE EXAM Routine 06/13/2022 7:29 AM CDT SCREENING MAMMOGRAM Routine 04/12/2013 8 :26 AM CHARGE ACCOUNT CLERK from Last 3 Months or Most Recently Relevant to Health Maintenance Results * (ABNORMAL) eGFR (08/24/2024 10:38 AM CDT) eGFR 43(L) >=60 mL/min/1. 73 m2 Comment: Interpretive Data Reference Interval Normal >/= 90 mL/min/1.73m2 Mildly decreased* 60 - 89 mL/min/1.73m2 Mildly to moderately decreased 45 - 59 mL/min/1.73m2 Moderately to severely decreased 30 - 44 mL/min/1.73m2 Severely decreased 15 - 29 mL/min/1.73m2 Kidney Failure < 15 mL/min/1.73m2 *Relative to young adult level Estimated glomerular [...] interpretive data was last reviewed 2021. Blood 08/24/2024 10:3 8 AM CDT 08/24/2024 4:35 PM CDT us Noris Sanches NP LAB BLOOD ORDERABLES Elizabeth l Result CHENG [id number] [place] [address] * Albumin Creatinine Ratio, Urine (08/24/2024 10:38 AM CDT) Albumin Ur 19.0 mg/L Comment: Interpretive Data No reference range established. Current interpretive data was last revised 2018. Creatinine Ur 128.0 mg/dL [facility]ENG MU[facility]OZ Comment: Interpretive Data No reference range established. Current interpretive data was last revised 2018. Albumin Creatinine Ratio, Ur 15 1 - 29 mg/g [facility] MU[facility]OZ Urine 08/24/2024 10:3 8 AM CDT 08/24/2024 4:29 PM CDT us Noris Sanches NP LAB URINE ORDERABLES Elizabeth babb Result [facility]ENG MU[facility]OZ [id number] [place] [address] * Lipid panel (08/24/2024 10:38 AM CDT) Cholesterol 111 30 - 199 mg/dL Comment: Interpretive Data Ages < or = 19 years Acceptable: <170 mg/dL Borderline high: 170-199 mg/dL High: >or= 200 mg/dL Ages > or = 20 years Desirable: <200 mg/dL Borderline high: 200-239 mg/dL High: >or= 240 mg/dL Literature References: 1. Expert Panel on Integrated Guidelines for Cardiovascular Health and Risk Reduction in Children and Adolescents. Pediatrics 2011;128:S213 2. NCEP Expert Panel. Circulation 2004;110:227 Current Interpretive Data was last revised on 2017. Triglycerides 112 <=149 mg/dL CHENG MUÑOZ Comment: Interpretive Data Ages < or = 9 years Acceptable: <75 mg/dL Borderline high: 75-99 mg/dL High: >or= 100 mg/dL Ages 10 to 20 years Acceptable: <90 mg/dL Borderline high: 90-129 mg/dL High: >or= 130 mg/dL Ages > or = 20 years Desirable: <150 mg/dL Borderline high: 150-199 mg/dL High: 200-499 mg/dL Very high: >or= 499 mg/dL Literature References: 1. Expert Panel on Integrated Guidelines for Cardiovascular Health and Risk Reduction in Children and Adolescents. Pediatrics 2011;128:S213 2. NCEP Expert Panel. Circulation 2004;110:227 Current Interpretive Data was last revised on 2017. HDL 40 >=40 mg/dL CHENG MU[facility]OZ Comment: Interpretive Data Ages < or = 19 years Acceptable: >45 mg/dL Borderline low: 40-45 mg/dL Low: <40 mg/dL Ages > or = 20 years Desirable: >or= 60 mg/dL Low: <40 mg/dL Literature References: 1. Expert Panel on Integrated Guidelines for Cardiovascular Health and Risk Reduction in Children and Adolescents. Pediatrics 2011;128:S213 2. NCEP Expert Panel. Circulation 2004;110:227 Current Interpretive Data was last revised on 2017. LDL, calculated 50 <=129 mg/dL CHENG MU[facility]OZ Comment: Interpretive Data Ages < or = 19 years Acceptable: <110 mg/dL Borderline high: 110-129 mg/dL High: >or= 130 mg/dL Ages > or = 20 years Optimal: <100 mg/dL Near optimal: 100-129 mg/dL Borderline high: 130-159 mg/dL High: >160 mg/dL Calculated using the Pedro LDL-C estimating equation. This equation was implemented on 2023. Prior to this date LDL-C was estimated using the Friedewald equation. Literature References: 1. Expert Panel on Integrated Guidelines for Cardiovascular Health and Risk Reduction in Children and Adolescents. Pediatrics 2011;128:S213 2. NCEP Expert Panel. Circulation 2004;110:227 3. Pedro Martinez et al. YUNG Cardiol. 2019July 08;5(5):540-548. doi: [email or web address] Current Interpretive Data was last revised on 2023. Non-HDL Cholesterol 71 mg/dL CHENG MU[facility]OZ Comment: Interpretive Data Ages < or = 19 years Acceptable: <120 mg/dL Borderline high: 120-144 mg/dL High: >145 mg/dL Ages > or = 20 years When triglycerides are >200 mg/dL, Non-HDL cholesterol is a secondary target of therapy with treatment goals that are 30 mg/dL greater than the LDL cholesterol target. Literature References: 1. Expert Panel on Integrated Guidelines for Cardiovascular Health and Risk Reduction in Children and Adolescents. Pediatrics 2011;128:S213 2. NCEP Expert Panel. Circulation 2004;110:227 Current Interpretive Data was last revised on 2017. Chol/HDL ratio 3 CHENG MU[facility]OZ Blood 08/24/2024 10:3 8 AM CDT 08/24/2024 4:29 PM CDT us Noris Sanches NP LAB BLOOD ORDERABLES Elizabeth l Result [facility]ENG MU[facility]OZ [id number] [place] [address] * (ABNORMAL) Comprehensive metabolic panel (08/24/2024 10:38 AM CDT) Sodium 147(H) 135 - 145 mmol/L Potassium, pl 4.7 3.3 - 4.9 mmol/L [facility] Chloride 111(H) 97 - 110 mmol/L [facility] CO2 28 22 - 32 mmol/L [facility] Anion gap 8 2 - 15 mmol/L [facility] BUN 21 6 - 25 mg/dL [facility] Creatinine 1.37(H) 0.60 - 1.10 mg/dL [facility] Glucose 93 70 - 199 mg/dL [facility] Comment: Interpretive Data Fasting glucose >/= 126 mg/dl is diagnostic for diabetes. Fasting is defined as no caloric intake for at least 8 hours. Fasting glucose between 100 mg/dl to 125 mg/dl is diagnostic of prediabetes. In a patient with classic symptoms of hyperglycemia or hyperglycemic crisis, a random glucose >/= 200 mg/dl is diagnostic for diabetes. In the absence of unequivocal hyperglycemia, results should be confirmed by repeat testing. The classification and Diagnosis of Diabetes Diabetes Care 2021; 46: S19-S40. Current interpretive data was last revised 2022. Calcium 9.6 8.5 - 10.3 mg/dL [facility] Bilirubin, total 0.2 0.1 - 1.2 mg/dL [facility] Protein, pl 6.8 6.5 - 8.5 g/dL [facility] Albumin 3.7 3.5 - 5.0 g/dL [facility] Alk phos 72 40 - 130 Units/L [facility] ALT 17 7 - 45 Units/L [facility] AST 24 10 - 45 Units/L [facility] Blood 08/24/2024 10:3 8 AM CDT 08/24/2024 4:29 PM CDT us Noris Sanches NP LAB BLOOD ORDERABLES Elizabeth babb Result [address]ENG [id number] [address] [place] [place] [address] * (ABNORMAL) POCT hemoglobin A1c (08/24/2024 10:02 AM CDT) Hemoglobin A1C, POC 6.0(A) 4.0 - 5.6 % Blood 08/24/2024 10:0 2 AM CDT Norishector Sanches CD MIXER HELPER POINT OF CARE TEST ORDERA BLES Final Result * POCT glucose (08/24/2024 10:02 AM CDT) Glucose Blood, POC 109 Normal Fasting 70 - 100, Random <200 mg/dL Blood 08/24/2024 10:0 2 AM CDT Norishector Sanches CD MIXER HELPER POINT OF CARE TEST ORDERA BLES Final Result * DIABETES EYE EXAM (06/13/2022 7:29 AM CDT) Historical Provider [facility] MAINTE[facility] Edited Result - Final * Screening Mammogram (04/12/2013 8:26 AM CHARGE ACCOUNT CLERK) Anatomical Region Laterality Modality Breast N/A Mammography 04/12/2013 8:26 AM CHARGE ACCOUNT CLERK Narrative 04/15/2013 2:59 PM CHARGE ACCOUNT CLERK JANY ROBERTSON M.D. FINAL REPORT ACC# Date Time Exam [id number] Apr 12, 2013 08:26:00 BMV [id number] [place] Screening Mamm Technologist(s): Marycruz Ornelas; ; EXAMINATION: Mammogram Technique: Bilateral Full-Field Digital Screening Mammogram was performed. Views obtained: bilateral craniocaudal and bilateral mediolateral oblique. Computer Aided Detection was performed with [employer] Realm.3 version 9.3. Mammogram Findings: The present examination has been compared to prior imaging studies performed at [facility] on 04/10/2012 and [...] ROBERTSON M.D. on Apr 15 2013 2:59P Procedure Note Provider, MD Jose - 07/06/2016 JANY ROBERTSON M.D. FINAL REPORT ACC# Date Time Exam [id number] Apr 12, 2013 08:26:00 BMV [id number] [place] Screening Mamm Technologist(s): Marycruz Ornelas; ; EXAMINATION: Mammogram Technique: Bilateral Full-Field Digital Screening Mammogram was performed. Views obtained: bilateral craniocaudal and bilateral mediolateral oblique. Computer Aided Detection was performed with [employer] Realm.3 version 9.3. Mammogram Findings: The present examination has been compared to prior imaging studies performed at [facility] on 04/10/2012 and [...] ROBERTSON M.D. on Apr 15 2013 2:59P Historical Provider MD INFANTE MAMMO PROCEDURES Elizabeth l Result from Last 3 Months or Most Recently Relevant to Health Maintenance Insurance [facility] MEDICARE ADVANTAGE [facility] MEDICARE ADVANTAGE Care Teams Sql Report Developer Relationship Specialty Start Date End Date Edwardo Murillo MD PCP - General Internal Medicine 08/23/16 [place] [id number] [address] Consulting Physician Endocrinology Diabetes & Metabolism 10/13/18
[2024-10-13 17:33] VITALS: BP 114/54; PULSE 77; RESP 18; TEMP 36.9; O2SAT 98
--- NOTE | 2024-10-13 17:51 | ED.FALL ---
HPI - Fall General Chief Complaint: Fall <Jose DKiet FerrerRENNY tavera - Last Filed: 10/13/24 17:54> Stated Complaint: fall <Jose Suzy FerrerRENNY tavera - Last Filed: 10/13/24 17:54> Time Seen by Provider: 10/13/24 19:08 <Jose MendezKiet FerrerRENNY tavera - Last Filed: 10/13/24 17:54> 64-year-old female presents to the ER complaining of fall approximately 4-5 hours ago. Patient says she slipped in her kitchen landing on her right side. Patient did hit her head, she denies loss of consciousness. She denies any neck pain. Patient is complaining of thoracic/lumbar back pain, right rib pain, right flank pain, right knee pain, right foot pain. Patient is able to get up after injury. Patient denies any dizziness, lightheadedness, chest pain, difficulty breathing, abdominal pain, nausea, vomiting. Patient is not take any blood thinners. GENERAL: Well-appearing, well-nourished, and in no acute distress. HEAD: Normocephalic, pain in bruising over nasal bridge. EYES: EXTRAOCULAR MOVEMENTS INTACT. Pupils PERRLA. CHEST: Clear to auscultation. ?No respiratory distress. No paradoxical movements, no flail chest segment. HEART: Regular rate and rhythm.? NEURO: ?Alert and oriented x3. NECK: Supple. No cervical point tenderness, crepitus or step-offs. Normal range of motion. MSK: Right knee: Tenderness to palpation, no obvious deformity. Range of motion limited due to pain. Neurovascular status intact injury. Right foot: Right great toe is tender to palpate along with dorsal surface of the distal medial foot. Patient patient wiggle her toes. Capillary refill less than 2 seconds. Right pedal pulse 2 +and palpable. Normal dorsiflexion plantar flexion foot. Neurovascular status intact distal injury. BACK: Thoracic and lumbar point tenderness. No crepitus or step-offs. Tenderness to palpation to right upper back. Patient screened in triage and initial orders placed.? ?Additional care and disposition to be based upon?diagnostic testing and treatment. <Jose Brian APRN - Last Filed: 10/13/24 17:54> History of Present Illness HPI Narrative: Agree with the above with the following additions/corrections: Patient states she fell approximately 13 30, slipping on the kitchen floor and falling on her right side and striking her face. She denies any loss of consciousness. She did have epistaxis although this resolved. She has pain in the right great toe, right knee anteriorly, right wrist, and right ribs around the inframammary area. Her nose is swollen. Not on anticoagulation. She reports taking 3 tablets of 325 mg acetaminophen at approximately 3:45 p.m.. She feels a little short of breath. <Celsa Busch MD - Last Filed: 10/13/24 21:04> Related Data Home Medications: Home Medications ?Medication ?Instructions ?Recorded ?Confirmed ?Last Taken ?Type allopurinol 100 mg tablet 100 mg PO DAILY 01/27/20 07/29/22 08/10/22 History ascorbate calcium-bioflavonoid 1 tablet PO DAILY 01/27/20 07/29/22 08/10/22 History 1,000 mg-200 mg tablet aspirin 81 mg tablet,delayed 81 mg PO DAILY 01/27/20 07/29/22 08/10/22 History release (Adult Aspirin Regimen) citalopram 10 mg tablet 10 mg PO DAILY 01/27/20 07/29/22 08/10/22 History ferrous sulfate 325 mg (65 mg 325 mg PO DAILY 01/27/20 07/29/22 08/07/22 History iron) tablet,delayed release glipizide 10 mg tablet 10 mg PO DAILY 01/27/20 07/29/22 08/10/22 History insulin lispro 100 unit/mL 12 unit subcut TID 01/27/20 07/29/22 08/10/22 History subcutaneous cartridge (Humalog U-100 Insulin) metformin 500 mg tablet 500 mg PO DAILY 01/27/20 07/29/22 08/10/22 History olmesartan 20 mg tablet 20 mg PO DAILY 01/27/20 07/29/22 08/10/22 History pantoprazole 20 mg tablet,delayed 20 mg PO QAM 01/27/20 07/29/22 08/10/22 History release simvastatin 40 mg tablet 40 mg PO DAILY 01/27/20 07/29/22 08/10/22 History solifenacin 5 mg tablet 5 mg PO DAILY 01/27/20 07/29/22 08/10/22 History cholecalciferol (vitamin D3) 1,250 50,000 unit PO WEEKLY 07/29/22 07/29/22 Unknown History mcg (50,000 unit) capsule insulin glargine 100 unit/mL 85 unit subcut HS 07/29/22 07/29/22 08/10/22 History subcutaneous solution (Lantus U-100 Insulin) semaglutide 1 mg/dose (4 mg/3 mL) 1 mg subcut WEEKLY 07/29/22 07/29/22 Unknown History subcutaneous pen injector (Ozempic) <Jose Brian APRN - Last Filed: 10/13/24 17:54> Allergies/Adverse Reactions: Allergies Allergy/AdvReac Type Severity Reaction Status Date / Time No Known Allergies Allergy Verified 10/13/24 17:44 <Jose Brian APRN - Last Filed: 10/13/24 17:54> [facility] Past Medical History Medical History: Medical History Kidney disease Heart disease Gout Fracture of left carpal bone Dorsal triquetrum avulsion fracture BMI 50.0-59.9, adult Diabetes mellitus Hypertension <Jose Brian APRN - Last Filed: 10/13/24 17:54> Surgical History Surgical History: Surgical History H/O: section History of cholecystectomy <Jose Brian APRN - Last Filed: 10/13/24 17:54> Family History Family History: Family History Other Diabetes mellitus Heart disease Hypertension <Jose Brian APRN - Last Filed: 10/13/24 17:54> Social History Social History: Social History Smoking packs per day: 0.25 Smoking cigarettes per day: 5.0 Years smoked: 20 Smoking pack-years: 5.00 Smoking status: Former smoker Tobacco type: cigarettes Alcohol intake: never Alcohol use details: occasional Substance use: never Substance use type: does not use Living arrangements: with family Additional living arrangements comments: daughter lives with her Occupation/Education: retired Gender identity (if verbalized by the patient): Female Spiritual care concerns: No <Jose Brian APRN - Last Filed: 10/13/24 17:54> Exam Narrative: GENERAL: Well-appearing, well-nourished, and in no acute distress. HEAD: Normocephalic, atraumatic. EYES: Non injected, non icteric ENT: Nares clear, no rhinorrhea. Gross auditory acuity intact. Nasal bridge is swollen with a small abrasion overlying it. Hyperemia within the nares but no active epistaxis and no septal hematoma. NECK: Supple. No meningismus. CHEST: Speaking in full sentences. No respiratory distress. Inspiratory sounds are appreciated on auscultation but difficult to appreciate expiratory sounds bilaterally. Tenderness to palpation of the chest at the right infra and lateral mammary area but without distinct subcutaneous emphysema/crepitus/bony deformity. Patient does have some erythema and yeast at the right inframammary intertriginous area. HEART: Regular rate and rhythm. . ABDOMEN: Morbid obesity but Soft, nondistended. No rigidity or guarding. Not peritoneal EXTREMITIES: Right knee with swelling and effusion. Patient is able to flex and extend at the right knee, at rest it is comfortable at 90? and she extends to nearly 180 (although not fully). She is able to apply 5/5 strength with dorsiflexion and plantar flexion of the right great toe when isolated. SKIN: Warm, dry. NEURO: No focal deficits. Alert and oriented. Answering questions. Following commands. Normal speech without aphasia or dysarthria. PSYCH: Normal mood and affect. <Celsa Busch MD - Last Filed: 10/13/24 21:04> Course Vital Signs Vital signs: Vital Signs Temperature 98.4 F 10/13/24 17:33 Pulse Rate 77 10/13/24 17:33 Respiratory Rate 18 10/13/24 17:33 Blood Pressure 114/54 L 10/13/24 17:33 Pulse Oximetry 98 10/13/24 17:33 Oxygen Delivery Room Air 10/13/24 17:33 Temperature 98.4 F 10/13/24 17:33 Pulse Rate 72 10/13/24 19:24 Respiratory Rate 16 10/13/24 19:24 Blood Pressure 139/65 10/13/24 19:24 Pulse Oximetry 100 10/13/24 19:24 Oxygen Delivery Room Air 10/13/24 19:15 <Jose Brian APRN - Last Filed: 10/13/24 17:54> Vital Signs Temperature 98.4 F 10/13/24 17:33 Pulse Rate 77 10/13/24 17:33 Respiratory Rate 18 10/13/24 17:33 Blood Pressure 114/54 L 10/13/24 17:33 Pulse Oximetry 98 10/13/24 17:33 Oxygen Delivery Room Air 10/13/24 17:33 Temperature 98.4 F 10/13/24 17:33 Pulse Rate 72 10/13/24 19:24 Respiratory Rate 16 10/13/24 19:24 Blood Pressure 139/65 10/13/24 19:24 Pulse Oximetry 100 10/13/24 19:24 Oxygen Delivery Room Air 10/13/24 19:15 <Celsa Busch MD - Last Filed: 10/13/24 21:04> MDM - Fall MDM Narrative Medical decision making narrative: Patient presents after accidentally falling and slipping on the kitchen floor at approximately 1:30 p.m.. She fell on her right side and struck her face. No loss of consciousness. She is having pain at her right great toe, right anterior knee, right ribs/chest, and her nose is swollen. In the emergency department she is afebrile with vital signs notable for mildly low diastolic blood pressure but with a mean arterial pressure of 74 mm Hg. Mild leukocytosis. Normocytic anemia, stable from previous. Creatinine is slightly elevated but stable from previous and patient carries a diagnosis of kidney disease per review of the EMR/PMH. Lying patella seen on imaging with an effusion. While this in the appropriate setting may represent considered for rupture/tear, for example quadriceps injury, there is very low suspicion for this given she is able to engage flexor and extensor mechanism. On reassessment after imaging is back and negative for acute process as below, she is reassessed at bedside approximately 8:55 p.m.. She reports she is feeling better, rates pain as 8/10 in severity but otherwise appears comfortable. Stable for discharge. Advised on multimodal pain regimen strategy. She verifies understanding. She confirms she has a primary care physician. Will give 1 time dose of ketorolac but otherwise will not include NSAIDs in her discharge pain regimen given her chronic kidney disease. <Celsa Busch MD - Last Filed: 10/13/24 21:04> Differential Diagnosis Differential diagnosis: Likely other (Nasal bone fracture considered within without septal hematoma, intracranial hemorrhage, acute internal derangement of the knee, fracture of toe; rib fracture, pulmonary contusion, pneumothorax/hemothorax) <Celsa Busch MD - Last Filed: 10/13/24 21:04> Lab Data Attestation: I reviewed the patient's lab results. <Celsa Busch MD - Last Filed: 10/13/24 21:04> Result diagrams: 10/13/24 18:11 10/13/24 18:11 <Jose Brian APRN - Last Filed: 10/13/24 17:54> Labs: Lab Results 10/13/24 Range/Units 18:11 WBC 11.9 H (4.5-10.0) K/mm3 RBC 3.92 L (4.2-5.4) M/mm3 Hgb 11.7 L (12.0-15.0) g/dL Hct 37.4 (37.0-47.0) % MCV 95.4 (80-100) fl MCH 29.8 (26-34) pg MCHC 31.3 L (32-36) g/dl RDW 14.8 H (11.5-14.5) % Plt Count 314 (150-375) k/mm3 MPV 11.8 H (7.4-10.4) fl Immature Gran % (Auto) 0.5 (0-0.5) % Neut % (Auto) 73.1 (45.5-73.1) % Lymph % (Auto) 15.7 L (18.3-44.2) % [place] % (Auto) 8.5 (2.6-8.5) % Eos % (Auto) 1.8 (0-4.4) % Baso % (Auto) 0.4 (0.2-1.2) % Lymph # (Auto) 1.87 (0.9-3.2) K/mm3 [place] # (Auto) 1.0 H (0.1-0.6) K/mm3 Eos # (Auto) 0.2 (0-0.3) K/mm3 Baso # (Auto) 0.1 (0.0-0.1) K/mm3 Abs Immat Gran (auto) 0.06 H (0.00-0.031) K/mm3 Absolute Neuts (auto) 8.7 H (1.3-6.7) K/mm3 Absolute Nucleated RBC 0.000 (0.0-0.012) K/mm3 Nucleated RBC % 0.0 (0.0-0.2) % PT 13.4 (11.1-14.7) Seconds INR 1.0 APTT 23.4 (22.3-36.8) Seconds Sodium 138 (137-145) mmol/L Potassium 4.4 (3.4-5.0) mmol/L Chloride 108 H (98-107) mmol/L Carbon Dioxide 22 (22-30) mmol/L Anion Gap 8 (4-12) mmol/L BUN 26 H (7-17) mg/dL Creatinine 1.23 H (0.7-1.0) mg/dL Estim Creat Clear Calc 50 ml/min Estimated GFR 44 L (59 - ) Glucose 126 H (65-110) mg/dL Calcium 9.7 (8.4-10.2) mg/dL Total Bilirubin 0.6 (0.2-1.3) mg/dL AST 25 (14-36) U/L ALT 24 (6-35) U/L Alkaline Phosphatase 75 (38-126) U/L Total Protein 7.2 (6.3-8.2) g/dL Albumin 3.8 (3.5-5.1) g/dL <Jose Brian, THROW OUT CLERK - Last Filed: 10/13/24 17:54> Lab Results 10/13/24 Range/Units 18:11 WBC 11.9 H (4.5-10.0) K/mm3 RBC 3.92 L (4.2-5.4) M/mm3 Hgb 11.7 L (12.0-15.0) g/dL Hct 37.4 (37.0-47.0) % MCV 95.4 (80-100) fl MCH 29.8 (26-34) pg MCHC 31.3 L (32-36) g/dl RDW 14.8 H (11.5-14.5) % Plt Count 314 (150-375) k/mm3 MPV 11.8 H (7.4-10.4) fl Immature Gran % (Auto) 0.5 (0-0.5) % Neut % (Auto) 73.1 (45.5-73.1) % Lymph % (Auto) 15.7 L (18.3-44.2) % [place] % (Auto) 8.5 (2.6-8.5) % Eos % (Auto) 1.8 (0-4.4) % Baso % (Auto) 0.4 (0.2-1.2) % Lymph # (Auto) 1.87 (0.9-3.2) K/mm3 [place] # (Auto) 1.0 H (0.1-0.6) K/mm3 Eos # (Auto) 0.2 (0-0.3) K/mm3 Baso # (Auto) 0.1 (0.0-0.1) K/mm3 Abs Immat Gran (auto) 0.06 H (0.00-0.031) K/mm3 Absolute Neuts (auto) 8.7 H (1.3-6.7) K/mm3 Absolute Nucleated RBC 0.000 (0.0-0.012) K/mm3 Nucleated RBC % 0.0 (0.0-0.2) % PT 13.4 (11.1-14.7) Seconds INR 1.0 APTT 23.4 (22.3-36.8) Seconds Sodium 138 (137-145) mmol/L Potassium 4.4 (3.4-5.0) mmol/L Chloride 108 H (98-107) mmol/L Carbon Dioxide 22 (22-30) mmol/L Anion Gap 8 (4-12) mmol/L BUN 26 H (7-17) mg/dL Creatinine 1.23 H (0.7-1.0) mg/dL Estim Creat Clear Calc 50 ml/min Estimated GFR 44 L (59 - ) Glucose 126 H (65-110) mg/dL Calcium 9.7 (8.4-10.2) mg/dL Total Bilirubin 0.6 (0.2-1.3) mg/dL AST 25 (14-36) U/L ALT 24 (6-35) U/L Alkaline Phosphatase 75 (38-126) U/L Total Protein 7.2 (6.3-8.2) g/dL Albumin 3.8 (3.5-5.1) g/dL <Celsa Busch MD - Last Filed: 10/13/24 21:04> Imaging Data Radiologist's impression: Impressions Foot X-Ray 10/13/24 19:00 IMPRESSION: Degenerative disease without acute fracture Knee X-Ray 10/13/24 19:15 IMPRESSION: Low lying patella with a large suprapatellar joint effusion and degenerative disease. Head CT 10/13/24 20:25 Impression: No acute intracranial hemorrhage or suspicious mass effect. Head/Cervical Spine/Facial Bones CT 10/13/24 20:29 Impression: Straightening of the normal curvature of the cervical spine, likely muscular in origin. No acute fracture within the facial bones or cervical spine. Chest/Abdomen/Pelvis CT 10/13/24 20:34 IMPRESSION: No hollow or solid visceral organ injury. No acute fracture. <Celsa Busch MD - Last Filed: 10/13/24 21:04> Discharge Plan Discharge Clinical Impression: Degenerative joint disease of foot, right, Leukocytosis, Normocytic anemia, Chronic kidney disease, Nasal swelling, Toe pain, right, Knee pain, right, Right-sided chest wall pain, Knee effusion, right Fall Qualifiers: Encounter type: initial encounter Qualified Code(s): W19.XXXA - Unspecified fall, initial encounter <Jose Brian APRN - Last Filed: 10/13/24 17:54> Patient Disposition: Home <Jose Brian APRN - Last Filed: 10/13/24 17:54> Condition: Stable <Jose Brian APRN - Last Filed: 10/13/24 17:54> Instructions: Antibiotic Form, Chronic Kidney Disease (ED), Chronic Kidney Disease Diet (DC), Abrasion (ED), Swollen Knee Joint (ED), Knee Pain (ED), Anemia (ED), Fall Prevention (ED), Metatarsalgia (DC) <Jose Brian APRN - Last Filed: 10/13/24 17:54> Additional Instructions: As we discussed, you will likely be sore and achy over the next few days. Take combination medications as prescribed to help you balance some rest with managing her pain to a degree that allows you to stay active. Follow-up with primary care physician as needed. Return to the emergency department with any new or worsening symptoms. <Jose Brian APRN - Last Filed: 10/13/24 17:54> Patient Language: Greenlandic <Jose Brian APRN - Last Filed: 10/13/24 17:54> Prescriptions: New acetaminophen 500 mg capsule 1,000 mg PO Q6H PRN (Reason: pain) Qty: 30 0RF methocarbamol 750 mg tablet 1,500 mg PO HS Qty: 14 0RF lidocaine 4 % adhesive patch,medicated 1 patch topical DAILY PRN (Reason: pain) Qty: 10 0RF No Action insulin glargine [Lantus U-100 Insulin] 100 unit/mL solution 85 unit SUBCUT HS Ozempic 1 mg/dose (4 mg/3 mL) pen injector 1 mg SUBCUT WEEKLY cholecalciferol (vitamin D3) 1,250 mcg (50,000 unit) Capsule 50,000 unit PO WEEKLY allopurinol 100 mg tablet 100 mg PO DAILY aspirin [Adult Aspirin Regimen] 81 mg tablet,delayed release (DR/EC) 81 mg PO DAILY ascorbate calcium-bioflavonoid 1,000-200 mg tablet 1 tablet PO DAILY metformin 500 mg tablet 500 mg PO DAILY citalopram 10 mg tablet 10 mg PO DAILY glipizide 10 mg tablet 10 mg PO DAILY simvastatin 40 mg tablet 40 mg PO DAILY pantoprazole 20 mg tablet,delayed release (DR/EC) 20 mg PO QAM ferrous sulfate 325 mg (65 mg iron) tablet,delayed release (DR/EC) 325 mg PO DAILY Patient Comments: will hold x 5 days prior to colonoscopy 2022 olmesartan 20 mg tablet 20 mg PO DAILY Humalog U-100 Insulin 100 unit/mL cartridge 12 unit subcut TID Patient Comments: 12-20 units based on blood glucose level solifenacin 5 mg tablet 5 mg PO DAILY <Jose Brian APRN - Last Filed: 10/13/24 17:54> Follow-up/Referrals: Chidi,Edwardo Mcdonnell MD [Primary Care Provider] - <Jose Brian APRN - Last Filed: 10/13/24 17:54> Stand Alone Forms: Work/School Release IP <Jose Brian APRN - Last Filed: 10/13/24 17:54> Time of Disposition: 21:04 <Jose Brian APRN - Last Filed: 10/13/24 17:54> 21:04 <Celsa Busch MD - Last Filed: 10/13/24 21:04>
[2024-10-13 18:21] LABS: Hematocrit 37.4 % (37.0-47.0); Hemoglobin 11.7 g/dL (12.0-15.0); Immature Granulocyte Percent A 0.5 % (0-0.5); Lymphocytes Absolute Auto 1.87 K/mm3 (0.9-3.2); Mean Corpuscular HGB Conc 31.3 g/dl (32-36); Mean Corpuscular Hemoglobin 29.8 pg (26-34); Mean Corpuscular Volume 95.4 fl (80-100); Nucleated Red Blood Cells Absolute Auto 0.000 K/mm3 (0.0-0.012); Nucleated Red Blood Cells Perc 0.0 % (0.0-0.2); Platelet Count Result 314 k/mm3 (150-375); Red Blood Count 3.92 M/mm3 (4.2-5.4); White Blood Count 11.9 K/mm3 (4.5-10.0)
[2024-10-13 18:31] LABS: Alanine Aminotransferase 24 U/L (6-35); Albumin Level 3.8 g/dL (3.5-5.1); Alkaline Phosphatase 75 U/L (38-126); Anion Gap 8 mmol/L (4-12); Aspartate Amino Transferase 25 U/L (14-36); Bilirubin,Total 0.6 mg/dL (0.2-1.3); Blood Urea Nitrogen 26 mg/dL (7-17); Calcium 9.7 mg/dL (8.4-10.2); Carbon Dioxide 22 mmol/L (22-30); Chloride 108 mmol/L (98-107); Estimated CRCL calculation 50 ml/min; Estimated Glomerular Filt Rate 44; Glucose 126 mg/dL (65-110); Potassium 4.4 mmol/L (3.4-5.0); Sodium 138 mmol/L (137-145); Total Protein 7.2 g/dL (6.3-8.2)
[2024-10-13 18:32] LABS: INR 1.0; Partial Thromboplastin Time 23.4 Seconds (22.3-36.8); Prothrombin Time 13.4 Seconds (11.1-14.7)
[2024-10-13 19:15] VITALS: BP 139/65; PULSE 72; RESP 16; O2SAT 100
[2024-10-13] MEDS: HYDROcodone/acetaminophen (*CRX) 5-325 MG TABLET 1 TAB PO (19:23)
[2024-10-13 19:24] VITALS: BP 139/65; PULSE 72; RESP 16; O2SAT 100
--- OUTSIDE RECORDS SUMMARY | 2024-10-13 19:40 | XMS_ITS | Continuity of Care Document ---
Author Organization [facility] Address [address] [place] [address] Phone Care Team Providers Care Pond Sawyer Name Role Phone Boyd Wilkinson Unavailable Unavailable Procedures Procedure Date Post-op Follow-up Visit Post-op Follow-up Visit Remove Cataract, Insert Lens Office/outpatient Visit, Est Echo Exam Of Eye Advance Directives Directive Yes / No Effective Date File Name No Information Encounters Encounter Description Practice Location Reason(s) For Visit Diagnoses Date Provider Providers Copied on Encounter [facility], [address], [place], [place], [id number], tel:[phone] [facility] No Information 0 Krishnasamy Boyd. [facility] [address], [facility], . tel:[phone] Referring Provider: Kiel Mendez, [address] [place], [address]. tel:[phone] [facility], [address], [place], [place], [id number], tel:[phone] [facility] No Information 0 Krishnasamy Boyd. [address], [facility], [place]. tel:[phone] Referring Provider: Kiel Mendez, [address] [place], [address]. tel:[phone] [facility], [address], [place], [place], [id number], tel:[phone] [facility] No Information 0 [facility]nasamy Boyd. [address] [facility] [address], [facility], [place]. tel:[phone] Referring Provider: Kiel Mendez, [address] [place], [address]. tel:[phone] Office/outpat ient Visit, [facility], [address], [place], [place], [id number], [place] tel:[phone] [facility] No Information 0 Krishnasamy Boyd. [address], [facility], [place]. tel:[phone] Referring Provider: Kiel Mendez, [address] [place], [address]. tel:[phone] Family History Family Member Type Diagnosis Age At Onset No Information Payers Payer name Insurance type Covered republican ID Authoriza tion(s) No Information Social History [...]
--- OUTSIDE RECORDS SUMMARY | 2024-10-13 19:41 | XMS_ITS | Clinical Summary ---
Author Organization [facility] Address [address] [place] [address] Care Team Providers Care Blunger Machine Operator Name Role Phone Edwardo Murillo MD Primary Care Provider [phone] Source Comments [facility],non-owned Affiliates and Associated Physician Practices is amultiple site organization consisting of ambulatory clinics and hospital sitesin [place], [place], [place] and [place]. This disclosure is being madepursuant to the Care Everywhere program and may not contain all information available regarding this patient. Last updated 17.[facility] Allergies No known active allergies Medications * [...] patient's age to complete this topic Insurance [facility] MEDICARE ADV MEDICARE [facility] MEDICARE ADV Care Teams Blunger Machine Operator Relationship Specialty Start Date End Date Edwardo Murillo MD [address] [facility] [address] [place] [id number] PCP - General Internal Medicine 05/22/17
--- OUTSIDE RECORDS SUMMARY | 2024-10-13 19:41 | XMS_ITS | Clinical Summary ---
Author Organization [facility] [facility] [place] Address [address] [place] [phone] Care Team Providers Care Pipe Supervisor Name Role Phone Edwardo Murillo MD Primary [...] , with long-term current use of insulin ([facility]) 019 Active blood-glucose meter kitIndication s:Type 2 diabetes mellitus with hyperglycemia , with long-term current use of insulin ([facility]) Test blood sugars four times daily DX:E11.65 [...] , with long-term current use of insulin ([facility]) To calibrate glucometer. Onetouch verio 2 each 3 024 Active metFORMIN (GLUCOPHAGE) 500 mg tabletIndicat ions:Type 2 diabetes mellitus with hyperglycemia , with long-term current use of insulin ([facility]) TAKE 1 TABLET BY MOUTH ONCE DAILY [...] 10/30/2023 Assessment & Plan (05/03/2024 11:11 AM TANKROOM TENDER): Chronic problem. Mrs Keith has lost almost [...] Chronic problem. Managed by Dr Mayen in [place]. as not seen him since 2023; to call to make an appointment. Currently taking Farxiga 10mg daily as well as Losartan 100mg daily Nephropathy: On JUDITH-I / ARB s : Yes. Losartan 100mg. Last MA: 10/30/23 (51). Last creat/GFR: 10/30/23 GFR=50, CR=1.21. Will update labs. Does not mychart. Verified phone #/address to contact re: results. Assessment & Plan (05/03/2024 11:03 AM TANKROOM TENDER): Was managed by Dr Mayen in [place]. But insurance changes & needs new renal. Was seeing him q3-4 mos. Currently taking Farxiga 10mg daily as well as Losartan 100mg daily Nephropathy: On JUDITH-I / ARB s : Yes. Losartan 100mg. Last MA: 10/30/23 (51). Last creat/GFR: 10/30/23 GFR=50, CR=1.21. Assessment & Plan (10/30/2023 10:57 AM CDT): Managed by Dr Mayen in [place]. Sees q3-4 mos. JAN 0803/2023. Currently taking Farxiga 10mg daily as well as Losartan 100mg daily Last creat/GFR: 08/06/22 GFR=47, CR=1.29. Will update labs today. Does not mychart. Verified phone #/address to contact re: results. Assessment & Plan (02/25/2023 9:55 AM TANKROOM TENDER): Managed by Dr Mayen in [place]. Sees q3-4 mos. JAN 0803/2023. Currently taking Farxiga 10mg daily as well as Losartan 100mg daily Last creat/GFR: 08/06/22 GFR=47, CR=1.29. Assessment & Plan (11/07/2022 1:48 PM CDT): Managed by Dr Mayen in [place]. Currently taking Farxiga 10mg daily as well as Losartan 100mg daily Abscess of buttock 05/06/2019 Assessment & Plan (05/06/2019 11:02 AM TANKROOM TENDER): Referred to would care center at [facility] Combined hyperlipidemia assherrera ciated with type 2 diabetes mellitus 04/02/2018 Assessment & Plan (08/24/2024 9:58 AM CDT): Chronic problem. Controlled on current Simvastatin 40mg. Last lipid panel: 10/30/23 LDL=43, TG=91. Will update labs. Does not mychart. Verified phone #/address to contact re: results. Assessment & Plan (05/03/2024 10:51 AM TANKROOM TENDER): Chronic problem. Controlled on current Simvastatin 40mg. Last lipid panel: 10/30/23 LDL=43, TG=91. Assessment & Plan (10/30/2023 10:57 AM CDT): Chronic problem. Controlled on current Simvastatin 40mg. Last lipid panel: 08/06/22 LDL=29, FN=915. Will update labs today. Does not mychart. Verified phone #/address to contact re: results. Assessment & Plan (02/25/2023 9:39 AM TANKROOM TENDER): Chronic problem. Controlled on current Simvastatin 40mg. Last lipid panel: 08/06/22 LDL=29, ZG=549. Assessment & Plan (11/07/2022 1:25 PM CDT): Chronic problem. Controlled on current Simvastatin 40mg. Last lipid panel: 08/06/22 LDL=29, QL=837. Assessment & Plan (08/06/2022 2:51 PM CDT): Chronic, well controlled Low fat Low cholesterol diet Exercise Continue statin therapy Update lipid profile Assessment & Plan (03/07/2022 1:20 PM TANKROOM TENDER): Chronic problem. On statin therapy, no changes. Assessment & Plan (09/13/2021 1:40 PM CDT): Well controlled on current regimen Continue simvastatin Assessment & Plan (05/10/2021 2:38 PM TANKROOM TENDER): Chronic, well controlled Continue current meds Check [...] therapy. Assessment & Plan (04/09/2020 1:43 PM TANKROOM TENDER): At goal on current medications. Continue statin [...] panel Assessment & Plan (05/06/2019 11:01 AM TANKROOM TENDER): Goal of treatment , LDL cholesterol less [...] therapy Assessment & Plan (04/02/2018 2:31 PM TANKROOM TENDER): Goal of treatment , LDL cholesterol less [...] results. Assessment & Plan (05/03/2024 10:51 AM TANKROOM TENDER): Chronic problem. Controlled on current losartan 100mg daily. Assessment & Plan (10/30/2023 10:57 AM CDT): Chronic problem. Controlled on current losartan 100mg daily. Will update labs today. Does not mychart. Verified phone #/address to contact re: results. Assessment & Plan (02/25/2023 9:39 AM TANKROOM TENDER): Chronic problem. Controlled on current losartan 100mg daily. Assessment & Plan (11/07/2022 1:25 PM CDT): Chronic problem. Controlled on current losartan 100mg daily. Assessment & Plan (08/06/2022 2:50 PM CDT): Chronic, well controlled Importance of low salt diet and exercise were discussed Continue current meds Update SERENA BELL Assessment & Plan (03/07/2022 1:20 PM TANKROOM TENDER): Controlled on current medications, no changes. Assessment & Plan (09/13/2021 1:40 PM CDT): Chronic, well controlled Continue current medications Assessment & Plan (05/10/2021 2:38 PM TANKROOM TENDER): Chronic, well controlled Continue current meds Check MA Assessment & Plan (09/28/2020 9:30 AM CDT): Goal blood pressure is less than 140/85 Low salt diet The importance of daily aerobic exercise was also emphasized. Continue current meds, including JUDITH-I or ARB, e.g. Losartan Assessment & Plan (06/08/2020 9:02 AM CDT): Controlled on current medications. Continue plan. Assessment & Plan (04/09/2020 1:42 PM TANKROOM TENDER): Controlled on current medications. Continue plan. Assessment & Plan (11/30/2019 3:13 PM CDT): Diet and exercise Low salt diet Continue current Assessment & Plan (08/26/2019 1:23 PM CDT): Controlled on current medications. Continue plan. Assessment & Plan (05/06/2019 11:01 AM TANKROOM TENDER): Goal blood pressure is less than 140/85 Low salt diet recommended Daily aerobic exercise Continue current meds, including JUDITH-I or ARB Assessment & Plan (10/13/2018 2:31 PM CDT): Goal blood pressure is less than 140/85 Low salt diet recommended Daily aerobic exercise Continue current meds, including JUDITH-I or ARB with Benicar Assessment & Plan (04/02/2018 2:32 PM TANKROOM TENDER): Goal blood pressure is less than 140/85 Low salt diet recommended Daily aerobic exercise Continue current meds, including JUDITH-I or ARB Assessment & Plan (05/08/2017 11:48 AM TANKROOM TENDER): Goal blood pressure is less than 140/85 Low salt diet recommended Daily aerobic exercise Continue current meds, including JUDITH-I or ARB Assessment & Plan (02/06/2017 9:56 AM TANKROOM TENDER): Controlled on current medications. Type 2 diabetes [...] DM eye exam (06/2022) completed 06/2023 at [email or web address] in . 3rd request letter sent to [...] infection. Assessment & Plan (05/03/2024 11:12 AM TANKROOM TENDER): Chronic problem. A1c at goal (5.8%). will try to get PAP for her insulins, Ozempic & Farxiga. Current medications: Metformin 500mg with breakfast, 1000mg with dinner Farxiga 10mg daily Ozempic 2mg weekly Lantus 55 units nightly Humalog 8 units three times daily with meals if under 200, if over 200: 12 units UTD on labs. DM eye exam (06/2022) completed 06/2023 at [email or web address] in . Letter sent to get copy [...] DM eye exam (06/2022) [email or web address] . Letter sent to [...] infection. Assessment & Plan (02/25/2023 9:58 AM TANKROOM TENDER): Chronic problem. A1c at goal (5.9%) but [...] Metformin Assessment & Plan (03/07/2022 1:35 PM TANKROOM TENDER): Chronic problem, improving. Will try switching Bydureon [...] regimen Assessment & Plan (05/10/2021 2:17 PM TANKROOM TENDER): Hba1c was Lab Results Component Value Date [...] Start Farxiga 10 mg daily.Schedule appt with manager advanced to review meal plan. Assessment & Plan (04/09/2020 2:01 PM TANKROOM TENDER): A1c 7.9. Advised to adjust Lantus to [...] meter. Assessment & Plan (05/06/2019 11:01 AM TANKROOM TENDER): Hba1c was Lab Results Component Value Date [...] hba1c is under 7.0 to prevent superintendent [employer] diabetes complications ( eye , kidney [...] me. Assessment & Plan (04/02/2018 2:30 PM TANKROOM TENDER): Hba1c was Lab Results Component Value Date [...] hba1c is under 7.0 to prevent superintendent [employer] diabetes complications ( eye , kidney [...] units. Assessment & Plan (05/08/2017 11:47 AM TANKROOM TENDER): Hba1c was 7.1 today, indicating adequate DM [...] discussed. Assessment & Plan (02/06/2017 9:59 AM TANKROOM TENDER): A1c 8.4. Still too high. Increase Lantus [...] Resolved Date Body mass index 40.0-44.9, adult ([facility]) 10/30/2023 10/30/2023 Morbid (severe) obesity due to excess calories 03/07/2022 11/07/2022 Assessment & Plan (03/07/2022 1:36 PM TANKROOM TENDER): Chronic problem. Start Ozempic. Work on lifestyle. Body mass index (BMI) 50.0-59.9, adult 03/07/2022 10/30/2023 Hyperlipidemia 02/06/2017 02/25/2023 Assessment & Plan (05/08/2017 11:48 AM TANKROOM TENDER): Goal of treatment , LDL cholesterol less [...] therapy Assessment & Plan (02/06/2017 9:56 AM TANKROOM TENDER): Check lipid panel. BMI 50.0-59.9, adult 09/05/2016 023 Assessment & Plan (06/08/2020 9:01 AM CDT): Importance of following diet and exercising discussed. Assessment & Plan (04/09/2020 1:42 PM TANKROOM TENDER): Importance of following diet and exercising discussed. Assessment & Plan (08/26/2019 1:23 PM CDT): Importance of following diet and exercising discussed. Assessment & Plan (10/25/2016 3:07 PM CDT): Bariatric surgery discussed. She will call[facility]per Anderson or [facility] to attend information program. Encounters Date Type Department Care Team Description 09/14/2024 [facility]phone [facility] [address] [phone] Noris Sanches NP [place] 08/25/2024 Results Follow-Up [facility] Diabetes and Endocrinology [address] [place] [phone] Noris Sanches, KONSTANTIN Albumin Creatinine Ratio, Urine, Comprehensive metabolic panel, Lipid panel, eGFR 08/24/2024 10:38 AM CDT - 08/24/2024 11:59 PM CDT Hospital Encounter [address] [id number] Type 2 diabetes mellitus with hyperglycemia, with long-term current use of insulin (HCC); Hypertension associated with diabetes (HCC); Combined hyperlipidemia associated with type 2 diabetes mellitus (HCC) Discharge Disposition: Discharge to home or self care 08/24/2024 10:30 AM CDT Lab [facility] Outpatient Lab at [address] [phone] 08/24/2024 10:00 AM CDT Office Visit [facility] Diabetes and Endocrinology [address] [place] [phone] Noris Sanches NP Type 2 diabetes mellitus with hyperglycemia, with long-term current use of insulin (HCC) (Primary Dx); Hypertension associated with diabetes (HCC); Combined hyperlipidemia associated with type 2 diabetes mellitus (HCC); CKD stage 3 due to type 2 diabetes mellitus (HCC) 08/12/2024 Telephone [facility] Medical [facility] Diabetes and Endocrinology [address] [place] [phone] Noris Sanches NP Med Management ([facility]) [...] on file Legal Sex Female 7:27 PM TANKROOM TENDER Gender Identity Not on file Sexual Orientation [...] SCREENING MAMMOGRAM Routine 04/12/2013 8 :26 AM TANKROOM TENDER from Last 3 Months or Most Recently [...] LAB BLOOD ORDERABLES Elizabeth l Result CHENG [id number] Department [place] [address] * Albumin Creatinine Ratio, Urine (08/24/2024 10:38 [...] URINE ORDERABLES Elizabeth babb Result CHENG MUÑOZ [address] Department [place] [address] * Lipid panel (08/24/2024 10:38 AM CDT) [...] BLOOD ORDERABLES Elizabeth l Result CHENG MUÑOZ [address] Department [place] [address] * (ABNORMAL) Comprehensive metabolic panel [...] LAB BLOOD ORDERABLES Elizabeth babb Result CHENG [address] Department [place] [address] * (ABNORMAL) POCT hemoglobin A1c (08/24/2024 10:02 AM CDT) Hemoglobin A1C, POC 6.0(A) 4.0 - 5.6 % Blood 08/24/2024 10:0 2 AM CDT Norishector Sanches FLEET MANAGER POINT OF CARE TEST ORDERA BLES Final Result * POCT glucose (08/24/2024 10:02 AM CDT) Glucose Blood, POC 109 Normal Fasting 70 - 100, Random <200 mg/dL Blood 08/24/2024 10:0 2 AM CDT Norishector Sanches FLEET MANAGER POINT OF CARE TEST ORDERA BLES Final Result * DIABETES EYE EXAM (06/13/2022 7:29 AM CDT) Historical Provider [facility] Edited Result - Final * Screening Mammogram (04/12/2013 8:26 AM TANKROOM TENDER) Anatomical Region Laterality Modality Breast N/A Mammography 04/12/2013 8:26 AM TANKROOM TENDER Narrative 04/15/2013 2:59 PM TANKROOM TENDER JANY ROBERTSON M.D. FINAL REPORT ACC# Date Time Exam [id number] Apr 12, 2013 08:26:00 BMV [id number] [place] Screening Mamm Technologist(s): Marycruz Ornelas; ; EXAMINATION: Mammogram Technique: Bilateral Full-Field Digital Screening Mammogram was performed. Views obtained: bilateral craniocaudal and bilateral mediolateral oblique. Computer Aided Detection was performed with [employer].3 version 9.3. Mammogram Findings: The present examination has been compared to prior imaging studies performed at [facility] on 04/10/2012 and [...] M.D. FINAL REPORT ACC# Date Time Exam [id number] Apr 12, 2013 08:26:00 BMV [id number] [place] Screening Mamm Technologist(s): Marycruz Ornelas; ; EXAMINATION: Mammogram Technique: Bilateral Full-Field Digital Screening Mammogram was performed. Views obtained: bilateral craniocaudal and bilateral mediolateral oblique. Computer Aided Detection was performed with [employer]3 version 9.3. Mammogram Findings: The present examination has been compared to prior imaging studies performed at [facility] on 04/10/2012 and [...] Most Recently Relevant to Health Maintenance Insurance [facility] MEDICARE ADVANTAGE [facility] MED[facility] Address: [address] [address] [place] [address] [facility] MEDICARE ADVANTAGE [facility] Address: [address] [address] [place] [address] Care Teams Pipe Supervisor Relationship Specialty Start Date End Date Edwardo Murillo MD PCP - General Internal Medicine 08/23/16 [place] [id number] [address] Consulting Physician Endocrinology Diabetes & Metabolism 10/13/18
[2024-10-13] MEDS: KETOROLAC 30 MG/ML VIAL (*BKC) IV PUSH (21:29)
[2024-10-13 21:35] VITALS: BP 136/62; PULSE 76; RESP 17; O2SAT 99
== END 2024-10-13 21:40 | disposition home or self-care (01) ==
PROVIDERS: Emergency Provider Student in an Organized Health Care Education/Training Program; PCP Internal Medicine
DX: S09.92XA Unspecified injury of nose, initial encounter (principal); S99.921A Unspecified injury of right foot, initial encounter; S89.91XA Unspecified injury of right lower leg, initial encounter; R07.89 Other chest pain; M25.461 Effusion, right knee; D72.829 Elevated white blood cell count, unspecified; D64.9 Anemia, unspecified; M19.071 Primary osteoarthritis, right ankle and foot; E11.22 Type 2 diabetes mellitus with diabetic chronic kidney disease; I12.9 Hypertensive chronic kidney disease with stage 1 through stage 4 chronic kidney disease, or unspecified chronic kidney disease; N18.9 Chronic kidney disease, unspecified; M10.9 Gout, unspecified; Z87.891 Personal history of nicotine dependence; Z90.49 Acquired absence of other specified parts of digestive tract; M17.11 Unilateral primary osteoarthritis, right knee; Z79.4 Long term (current) use of insulin; Z79.85 Long-term (current) use of injectable non-insulin antidiabetic drugs; Z79.82 Long term (current) use of aspirin; Z79.84 Long term (current) use of oral hypoglycemic drugs; Z79.899 Other long term (current) drug therapy; W01.0XXA Fall on same level from slipping, tripping and stumbling without subsequent striking against object, initial encounter
CPT/HCPCS: 36415; 70450; 70486; 71260; 72125; 73562; 73630; 74177; 80053; 85025; 85610; 85730; 96374; 99284; A9270; J1885; Q9967